=== PATIENT | female | born 1995 | race Caucasian/White ===

== ENCOUNTER → 2019-02-03 16:02 | Outpatient (CLI) | payer SELFPAY ==
[2019-02-03 17:21] LABS: Absolute Lymphocyte Count 1.59 X10^3/uL (0.83-4.51); Basophil# 0.03 X10^3/uL; Basophil% 0.3 % (0-1); Eosinophil# 0.07 X10^3/uL; Eosinophils% 0.7 % (0-5); Hematocrit 38.2 % (37-47); Lymphocyte # 1.59 X10^3/ul (4.0); Lymphocyte % 16.3 % (19-41); Mean Corpuscular Hgb 31.3 pg (27.0-32.0); Mean Corpuscular Volume 91.8 fL (81-99); Mean Platelet Vol. 11.1 fl (6.2-12.0); Monocyte# 0.95 X10^3/uL; Monocyte% 9.8 % (0-10); NRBC Flagged by Analyzer 0 % (0-5); Neutrophil # 7.04 X10^3/uL (2.7-7.7); Neutrophil % 72.3 % (47-70); Platelet Count 212 K/mm3 (150-450); RBC Distribution Width CV 11.9 % (11.6-14.6); RBC Distribution Width SD 39.8 fl (35.1-43.9); Red Blood Count 4.16 M/mm3 (4.2-5.4); White Blood Count 9.7 K/mm3 (4.4-11.0)
[2019-02-03 19:52] LABS: Chlamydia Trachomatis by PCR Negative (Negative); Neisserai gonorrhoeae by PCR Negative (Negative); Probe Check PASS; Sample Adequacy Control PASS; Specimen Processing Control PASS
[2019-02-04 16:26] LABS: HIV - WCH Non-Reactive (Nonreactive); Hepatitis B Surface Antigen Non-Reactive (Nonreactive); Rubella IgG 210.2 IU/mL
[2019-02-05 05:10] LABS: Rapid Plasmin Reagin (RPR) NONREACTIVE (NONREACTIVE)
== END ==
PROVIDERS: Referring Provider Nurse Practitioner Women's Health; Visit Provider Nurse Practitioner Women's Health
DX: Z34.90 Encounter for supervision of normal pregnancy, unspecified, unspecified trimester (principal)
CPT/HCPCS: 36415; 85025; 86592; 86703; 86762; 86850; 86900; 86901; 87086; 87088; 87340; 87491; 87591

== ENCOUNTER → 2019-03-10 13:04 | Outpatient (CLI) | payer SELFPAY ==
[2019-03-10 08:39] VITALS: BMI 28.5
[2019-03-11 16:16] LABS: HPV Reflexed? NOT INDICATED
== END ==
PROVIDERS: Referring Provider Obstetrics & Gynecology; Visit Provider Obstetrics & Gynecology
DX: Z12.4 Encounter for screening for malignant neoplasm of cervix (principal)
CPT/HCPCS: 88175; G0145

== ENCOUNTER → 2019-06-02 09:14 | Outpatient (CLI) | payer SELFPAY ==
[2019-06-02 08:49] VITALS: BMI 30.7
[2019-06-02 10:32] LABS: Absolute Lymphocyte Count 1.33 X10^3/uL (0.83-4.51); Absolute Neutrophil Count 6.7 X10^3/uL (2.0-7.7); Basophil# 0.03 X10^3/uL; Basophil% 0.3 % (0-1); Eosinophil# 0.04 X10^3/uL; Eosinophils% 0.4 % (0-5); Hematocrit 34.6 % (37-47); Hemoglobin 11.8 g/dL (12.0-15.0); Lymphocyte # 1.33 X10^3/ul (4.0); Lymphocyte % 14.8 % (19-41); Mean Corp Hgb Conc 34.1 g/dL (32-36); Mean Corpuscular Hgb 31.5 pg (27.0-32.0); Mean Corpuscular Volume 92.3 fL (81-99); Mean Platelet Vol. 10.8 fl (6.2-12.0); Monocyte# 0.73 X10^3/uL; Monocyte% 8.1 % (0-10); NRBC Flagged by Analyzer 0 % (0-5); Neutrophil # 6.66 X10^3/uL (2.7-7.7); Neutrophil % 74.4 % (47-70); Platelet Count 144 K/mm3 (150-450); RBC Distribution Width CV 12.4 % (11.6-14.6); RBC Distribution Width SD 41.1 fl (35.1-43.9); Red Blood Count 3.75 M/mm3 (4.2-5.4)
[2019-06-02 10:57] LABS: Glucose Challenge Gest 1H 50g 131 mg/dL (70-140)
== END ==
PROVIDERS: Referring Provider Obstetrics & Gynecology; Visit Provider Obstetrics & Gynecology
DX: Z34.01 Encounter for supervision of normal first pregnancy, first trimester (principal)
CPT/HCPCS: 36415; 82950; 85025

== ENCOUNTER → 2019-07-29 15:28 | Outpatient (CLI) | payer SELFPAY ==
[2019-07-29 09:08] VITALS: BMI 31.0
== END ==
PROVIDERS: Referring Provider Nurse Practitioner Women's Health; Visit Provider Nurse Practitioner Women's Health
DX: Z34.00 Encounter for supervision of normal first pregnancy, unspecified trimester (principal)
CPT/HCPCS: 87081

== ENCOUNTER → 2019-07-30 11:01 | Outpatient (CLI) | payer SELFPAY ==
[2019-07-29 09:08] VITALS: BMI 31.0
--- NOTE | 2019-07-30 11:03 | US_ITS ---
STUDY: SECOND AND THIRD TRIMESTER OBSTETRICAL ULTRASOUND REASON FOR EXAM: Female, 23 years old GROWTH SMALL FOR DATES LMP: November 18, 2018. TECHNIQUE: Transabdominal TECHNICAL QUALITY: Adequate. PRIOR ULTRASOUND: None. FINDINGS: There is a single intrauterine fetus. The fetus is in a cephalic presentation. There is demonstrated cardiac activity with a heart rate of 142 bpm. There is decreased amniotic fluid volume consistent with oligohydramnios. The largest amniotic fluid pocket measures 3.9 cm. The amniotic fluid index (ELMIRA) is 7.6 cm. This is at below the 5th percentile. The placenta is fundal and posterior in location. There are Grade 2 placental changes. The adnexal regions are not visualized. BIOMETRY: BPD: 8.6 cm: 34 weeks, 6 days HC: 32.7 cm: 37 weeks, 1 days AC: 32.6 cm: 36 weeks, 4 days FL: 7.1 cm: 36 weeks, 1 days CI: 77% FL/BPD: 82% FL/HC: FL/AC: 22% HC/AC: 1.0 age by current US: 36 weeks, 2 days. JOHN by current US: August 25, 2019. Estimated weight: 2894 grams, +/- 423 grams, 52 %. Age by LMP: 36 weeks, 2 days. JOHN by LMP: August 25, 2019. US/OB Limited With Biometrics IMPRESSION: Single live intrauterine gestation with a mean gestational age of 36 weeks and 2 days. Oligohydramnios. The amniotic fluid is below the 5th percentile. Electronically Signed: Sumanth Zhang, at 15:38 EDT , Service support ,
== END ==
PROVIDERS: Referring Provider Nurse Practitioner Women's Health; Visit Provider Nurse Practitioner Women's Health
DX: Z34.00 Encounter for supervision of normal first pregnancy, unspecified trimester (principal)
CPT/HCPCS: 76816

== ENCOUNTER 2019-08-01 08:55 | Inpatient (IN) | payer SELFPAY ==
[2019-08-01] VITALS (38 sets, daily range): BP systolic 107–146; BP diastolic 51–81; PULSE 78–123; TEMP 36.2–36.8; O2SAT 91–100; BMI 31.0; BMI 31.5
[2019-08-01 10:24] LABS: Absolute Lymphocyte Count 1.27 X10^3/uL (0.83-4.51); Absolute Neutrophil Count 6.5 X10^3/uL (2.0-7.7); Basophil# 0.07 X10^3/uL; Basophil% 0.8 % (0-1); Eosinophil# 0.07 X10^3/uL; Eosinophils% 0.8 % (0-5); Hematocrit 37.3 % (37-47); Hemoglobin 12.5 g/dL (12.0-15.0); Lymphocyte # 1.27 X10^3/ul (4.0); Lymphocyte % 13.8 % (19-41); Mean Corp Hgb Conc 33.5 g/dL (32-36); Mean Corpuscular Hgb 31.6 pg (27.0-32.0); Mean Corpuscular Volume 94.2 fL (81-99); Mean Platelet Vol. 10.9 fl (6.2-12.0); Monocyte# 0.95 X10^3/uL; Monocyte% 10.3 % (0-10); NRBC Flagged by Analyzer 0 % (0-5); Neutrophil % 70.4 % (47-70); Platelet Count 181 K/mm3 (150-450); RBC Distribution Width CV 12.1 % (11.6-14.6); RBC Distribution Width SD 41.9 fl (35.1-43.9); Red Blood Count 3.96 M/mm3 (4.2-5.4); White Blood Count 9.2 K/mm3 (4.4-11.0)
[2019-08-01] MEDS: Lactated Ringers 1,000 ML 50 ML IV (10:25)
[2019-08-01] MEDS: 0.9% Normal Saline Single 100 ML IV.SOLN. IY (10:25)
[2019-08-01 10:31] LABS: Probe Check PASS; SARS-COV-2 DNA by PCR Negative (Negative); Specimen Processing Control PASS
[2019-08-01 10:31] LABS: International Normalized Ratio 0.9; Prothrombin Time (Protime)PT. 12.1 SECONDS (11.7-14.9)
[2019-08-01 10:32] LABS: Partial Thromboplast Time 24.5 Seconds (24.1-36.2)
[2019-08-01 10:37] LABS: AST(SGOT) 39 U/L (15-37); Alanine Aminotransfer ALT/SGPT 106 U/L (13-56); Creatinine, Serum 0.48 mg/dL (0.55-1.02); EST Glomerular Filtration Rate 168 mL/min (>60); Est Glom Filt Rate - Afr Amer 204 mL/min (>60); Estimated Creatinine Clearance 152.08 ml/min
[2019-08-01 10:50] LABS: Protein, Urine (Random) < 6.0 mg/dL (<11.9)
--- NOTE | 2019-08-01 11:03 | HP.PCM_ITS ---
- Problem List (1) Elevated blood pressure complicating in third trimester, antepartum Status: Acute (2) Oligohydramnios Status: Acute Comment: iol 36w4d (3) Status: Acute Qualifiers: Comment: Declines carrier. NIPT-low risk male. declines afp screen. Anatomy normal (4) Supervision of normal first Status: Acute Qualifiers: Comment: PRR JOHN 08/25/19 boy- mateusz Spouse Ramone History and Physical Date of Admission: 08/01/19 Intake Vital Signs 08/01/19 BMI 31.0 08/01/19 Height 5 ft 3 in 08/01/19 Weight: 179 lb 6 oz 08/01/19 BMI 31.7 08/01/19 BP 150/94 H 07/30/19 BMI 31.0 Intake Visit Reasons: fluid check Expediter Required: No Is patient in pain?: No Allergies No Known Allergies Allergy (Verified 08/01/19 08:11) Medications prenat.vits,taylor,rau-kgbg-yzsvk 1 tab PO DAILY 02/03/19 [History Confirmed 08/01/19] Last Menstral Period: 11/18/18 Zika: Zika virus screening: Negative : No PFSH PFSH Surgical History S/P ACL repair (Acute) Family History Mother Heart disease Father Heart disease Social History (Updated 08/01/19 @ 08:[address] Selin Ferrari MD) Smoking Status: Never smoker alcohol intake: never substance use type: does not use well-balanced diet: daily or most days caffeine: No what type of physical activity do you participate in: none seatbelt use: always do you feel safe at home: Yes additional social history: - Ramone Pregancy History 1 Elective abortions Hx Para 0 Spontaneous abortions Hx # Term Pregnancies Ectopic pregnancies Hx # Pregnancies Multiple births # of living children HPI fluid check : Details: ANAYELI ACHARYA is a 23 year old @ 36w4d with oligohydramnios and elevated bps- suspect severe preeclampsia. she denies any vb lof admits good fm no regular ctx. OB Visit JOHN Calculator Estimated Delivery Date Method Current WG Current Estimate 08/25/19 LMP (Certain) 36w 4d Expected Delivery Route/Plan Labor support person Ramone Pain management preference option epidural cut cord/dad catch no yes PP control plan condom discuss possible routes of delivery and associated risks [] special requests [] Specific Issue/Plans flu vaccine declines tdap vaccine declines rhogam NA LARC form signed declines movement and labor precautions reviewed. Problem list reviewed and updated with the most current details and appropriate orders placed. Continue routine care and follow up unless otherwise noted in visit notes/problem list details. Initial Weight: 156 lb Date EGA Weight BP Urine Prot Glucose FHR FuHt Pres Dilation Effaced St Visit Note 03/10/19 16w 0d 161 lb 8 oz (+5 lb 8 oz) 133/78 Negative Negative 160 SM- no vb cramping 04/07/19 20w 0d 166 lb 2 oz (+10 lb 2 oz) 126/78 Negative Negative 150 MH-Doing well. No VB, LOF. Good FM. Reviewed nl anatomy US 05/05/19 24w 0d 169 lb 2 oz (+13 lb 2 oz) 128/76 Negative Negative 260 24 SM- no vb lof good fm no regular ctx 06/02/19 28w 0d 173 lb 2 oz (+17 lb 2 oz) 132/80 Negative Negative 150 28 SM- no vb lof good fm n oregular ctx cbc gct tdap. discussed fu in 4 weeks due to COVID19. 06/30/19 32w 0d 175 lb 6 oz (+19 lb 6 oz) 130/86 Negative 500 g/dL 140 31 Cephalic SM- no vb lof good fm no regular ctx. fu 4 weeks due to covid pandemic. 07/29/19 36w 1d 177 lb 2 oz (+21 lb 2 oz) 122/80 Negative Negative 151 33 Cephalic 0 -3 MH-NO VB, LOF. Good FM. GBS. Growth U S 08/01/19 36w 4d 179 lb 6 oz (+23 lb 6 oz) 150/94 Negative Negative 150 33 Cephalic 1.5 60 -1 SM- no vb lof good fm no regular ctx elevated bp and repeat parminder at bedside 4 cm recommend IOL, possible severe preeclampsia. ACOG First Trimester First Trimester: Desire for , Alcohol, Tobacco Cessation, Illicit/Recreational Drug/Substance Use, Intimate Partner Violence, Barriers to care, Unstable Housing, Communication Barriers, Environmental/Work Hazards, Anticipated Course of Care, Toxoplasmosis Precations, Use of Any medications, Sexual activity, Exercise, Dental Care, Sauna/Hot tub use, Seat Belt use, Childbirth classes/Hospital facilities, , Travel, Indications for US and Screening for Aneuploidy Second Trimester Second Trimester: Signs and Symptoms of Labor, Selecting a care provider, Reproductive Life Planning, Care Planning and Intimate Partner Violence; discussed Tobacco Cessation or discussed Depression/Anxiety Third Trimester Third Trimester: Pain Management Plans, Labor support person(s), Immediate Larc, Movement Monitoring and Feeding Yes ; discussed Trial of Labor after Counseling or discussed Circumcision preference Diagnostics Diagnostics Diagnostics Blood Type A POSITIVE 02/03/19 Antibody Screen NEGATIVE 02/03/19 Glucose 1 Hr 50 gm 131 mg/dL (70-140) 06/02/19 HIV 1&2 Antibody Non-Reactive (Nonreactive) 02/03/19 Rubella IgG Antibody 210.2 IU/mL 02/03/19 Hgb 11.8 g/dL (12.0-15.0) L 06/02/19 Hct 34.6 % (37-47) L 06/02/19 RPR NONREACTIVE (NONREACTIVE) 02/03/19 Details: HIV: Urine Culture: Sequential Screen: NIPT Screen: ROS Const Reports system reviewed and no additional complaints, except as docu Card Reports system reviewed and no additional complaints, except as docu Resp Reports system reviewed and no additional complaints, except as docu GI Reports system reviewed and no additional complaints, except as docu, Reports nausea Reports system reviewed and no additional complaints, except as docu Musc Reports system reviewed and no additional complaints, except as docu Exam Const General: cooperative, healthy appearing, comfortable, anxious HENPR Head: normal to inspection Nose: external nose normal Face and sinus: normal facial exam Neck Neck: normal visual inspection, full ROM, no lymphadenopathy Thyroid: thyroid normal Chest Chest palpation & inspection: normal inspection of the chest Resp Effort & Inspection: normal respiratory effort GI Inspection: normal to inspection Palpation: soft, other (gravid uterus) Other: infant vertex and appropriate size for gestational age Other: Cervical Exam: Extrem General: pedal edema Results POC Urinalysis 2 Dip (Clinic) Office Urine Glucose Negative Last Edit by Celena Faye on 08/01/19 08:19 Office Urine Protein Negative Last Edit by Celena aFye on 08/01/19 08:19 Assessment & Plan Problems 1. 36 weeks gestation of Z3A.36 Declines carrier. NIPT-low risk male. declines afp screen. Anatomy normal 2. Encounter for supervision of normal first in first trimester Z34.01 PRR JOHN 08/25/19 boy- mateusz Spouse Ramone 3. Oligohydramnios O41.00X0 iol 36w4d 4. Elevated blood pressure complicating in third trimester, antepartum O16.3 Plan Patient presents IOL, plan management for , pitocin/AROM after fb. Pain management: plans epidural. GBS unknown- await result. Management of any complications: oligo, elevated blood pressures, check preeclampsia panel. I have reviewed the [facility] and made any clinically relevant updates. Orders Orders: POC Urinalysis 2 Dip (Clinic) Today Coding Level of Care Code OB Routine Diagnoses 36 weeks gestation of Z3A.36 ??Weeks of gestation: 36 weeks Encounter for supervision of normal first in first trimester Z34.01 ??Trimester: first trimester Oligohydramnios O41.00X0 Elevated blood pressure complicating in third trimester, antepartum O16.3
[2019-08-01] MEDS: Oxytocin 30 units/NS 500 ml 30 UNITS/500 ML IV.SOLN IV (11:10)
--- NOTE | 2019-08-01 19:32 | NURSING ---
Report received from Christophe Ellis RN. Pitocin running on pump at 16 mL/hr at start of this RN's shift.
[2019-08-01] MEDS: Lactated Ringers 500 ML 999 ML IV (21:33)
[2019-08-01] MEDS: Lactated Ringers 1,000 ML 200 ML IV (22:27)
[2019-08-01] MEDS: fentaNYL-bupivacaine (epidural) 100 ML BAG EPIDURAL (22:27)
[2019-08-02] VITALS (28 sets, daily range): BP systolic 99–122; BP diastolic 52–63; PULSE 80–123; RESP 16; TEMP 36.4–37; O2SAT 85–99
--- NOTE | 2019-08-02 02:20 | PN_ITS ---
Progress Note FHT: 130 moderate variability reactive no decelerations category I tracing [place]: Every 2-4 contractions 6 cm recommend Pitocin washout and then restart at half the Pitocin. iol oligo reassuring status, s/p epi STROKE Vital Signs/Narrative: Vital Signs Temp Pulse BP Pulse Ox 08/02/19 01:14 98.6 F 96 99/52 L 97 08/02/19 00:20 81 109/55 L 08/02/19 00:19 97.5 F L 98 08/01/19 23:09 90 110/51 L 99 08/01/19 23:07 97.3 F L 08/01/19 22:40 100 124/75 H 08/01/19 22:38 97.2 F L 08/01/19 22:34 105 H 116/70 08/01/19 22:29 100 107/63 08/01/19 22:25 123 H 111/59 L 08/01/19 22:23 97 99
[2019-08-02] MEDS: fentaNYL-bupivacaine (epidural) 100 ML BAG EPIDURAL (02:35)
[2019-08-02] MEDS: Lactated Ringers 1,000 ML 200 ML IV (03:42)
--- NOTE | 2019-08-02 07:49 | OP.PCM_ITS ---
Problem List (1) Elevated blood pressure complicating in third trimester, antepartum Status: Acute (2) Oligohydramnios Status: Acute Comment: iol 36w4d (3) Status: Acute Qualifiers: Comment: Declines carrier. NIPT-low risk male. declines afp screen. Anatomy normal (4) Supervision of normal first Status: Acute Qualifiers: Comment: PRR JOHN 08/25/19 boy- mateusz Spouse Ramone Vaginal Delivery Maternal Presentation: Medically Indicated Induction iol 36w5d presents IOL oligo Method of Induction: Pitocin, Arellano Bulb Amniotic Membrane Rupture Type: Artificial Amniotic Fluid Description: Clear Date of Procedure: 08/02/19 Pre-Operative Diagnosis: iol oligo Post-Operative Diagnosis: same Surgery/ Procedure Performed: Spontaneous Vaginal Delivery Type of Anesthesia: Epidural Description of Procedure: Patient began pushing and delivered the head in the ROSETTA presentation. The head was delivered atraumatically. The anterior and posterior shoulders delivered without complication followed by the rest of the and the was placed on the maternal abdomen. Delayed cord clamping was employed for approximately 60 seconds. Cord was clamped and cut and gentle traction was applied to the cord and the placenta delivered spontaneously immediately following it was noted to be intact with three-vessel cord. The perineum and vagina were inspected and noted to have a small first-degree perineal laceration that was repaired in the usual fashion with 3-0 Vicryl Rapide. EBL was 300 cc. Patient and infant tolerated delivery well. Placental Delivery Description: Spontaneous Placenta Disposition: [facility] Cord Vessel Description: 3 Vessels Cord Entanglement: None Estimated Blood Loss: 300 A gender: Male Episiotomy Description: None Laceration: Perineal Extension/lac, 1st degree Medications given after delivery: IV Pitocin Complications: None Multi Select Codes - Urinary/Genital Urinary/Genital CPT Codes: 02185 Vaginal Delivery [facility]
[2019-08-02] MEDS: Oxytocin 30 units/NS 500 ml 30 UNITS/500 ML IV.SOLN 334 UNITS IV (08:21)
[2019-08-02] MEDS: Ondansetron 4 MG/2 ML Vial IV (09:05)
[2019-08-02] MEDS: 0.9% Saline Lock 10 ML Syringe IV (11:19)
[2019-08-02] MEDS: Naproxen 250 MG Tablet 500 MG PO (19:50)
[2019-08-03] VITALS: BP 116/68; PULSE 74; RESP 16; TEMP 36.4
[2019-08-03 04:00] VITALS: BP 117/63; PULSE 78; RESP 16; TEMP 36.4
--- NOTE | 2019-08-03 07:10 | PCM.PN.OB ---
Subjective: doing well no complaints pain controlled no CP SOB N V ambulating well tolerating po lochia moderate, going well - Physical Exam Vitals/I&O's: Vital Signs Temp Pulse Resp BP Pulse Ox 97.5 F L 74 16 116/68 98 08/03/19 00:00 08/03/19 00:00 08/03/19 00:00 08/03/19 00:00 08/02/19 08:33 Weight: 177 lb 14.609 oz Body Mass Index (BMI) 31.5 Intake and Output for Last 24 Hours 08/01/19 08/02/19 08/03/19 23:59 23:59 23:59 Intake Total 1073.37 / 1073.37 2845.83 / 2845.83 Output Total 300 / 300 2400 / 2400 Balance 773.37 / 773.37 445.83 / 445.83 General: Alert, Oriented x3 Current Medications Acetaminophen (Tylenol) 1,000 mg PO Q8H PRN PRN PRN Reason: Pain Score 1-3/10 Bisacodyl (Dulcolax) 10 mg RECTAL UD PRN PRN Reason: If no BM Dibucaine (Dibucaine) 1 applic TOPICAL TID PRN PRN; Protocol PRN Reason: Discomfort Hydrocortisone (Hytone) 1 applic TOPICAL TID PRN PRN; Protocol PRN Reason: Discomfort Methylergonovine Maleate (Methergine) 0.2 mg IM X1 PRN PRN Reason: Excess bleeding/uterine atony Naproxen (Naprosyn) 500 mg PO Q8H PRN PRN PRN Reason: Pain Score 1-3/10 Last Admin: 08/02/19 19:50 Dose: 500 mg Documented by: Ondansetron HCl (Zofran) 4 mg IV Q4H PRN PRN PRN Reason: Nausea Last Admin: 08/02/19 09:05 Dose: 4 mg Documented by: Oxycodone HCl (Oxyir) 5 - 10 mg PO Q4H PRN PRN PRN Reason: Pain Score 4-10/10 Senna/Docusate Sodium (Senokot-S, Nkechi-Colace) 1 - 2 tablet PO DAILY PRN PRN PRN Reason: Constipation Simethicone (Mylicon) 80 mg PO PCHS PRN PRN Reason: Indigestion/Stomach pain Sodium Chloride () 5 - 15 ml IV UD PRN PRN Reason: SALINE FLUSH Last Admin: 08/02/19 11:19 Dose: 10 ml Documented by: Medical Necessity - Tobacco Use Smoking Status: Never smoker Assessment/Plan All Active Problems (Last Reviewed 08/01/19 @ 08:10 by Celena Faye) Elevated blood pressure complicating in third trimester, antepartum (Acute) Oligohydramnios (Acute) (Acute) Supervision of normal first (Acute) s/p PPD # 1 1. routine post delivery care 2. breast feeding- support given 3. rh positive 4. rubella immune
--- NOTE | 2019-08-03 07:11 | DCINST_ITS ---
Discharge Diet: No Restrictions Discharge Activity: Return to Normal Activity, May not drive while taking narcotic pain medications., May Shower May resume sexual activity in: 4-6 weeks Call your doctor if your incision/area has: Continuous Slow Oozing, Sudden Increased Bleeding, Increased Pain/ Swelling, Increased Redness, Foul Smelling Discharge Additional Instructions: If you experience any of the following, contact your healthcare provider. * Bleeding that soaks a pad every hour for 2 hours * Fever 100.4 or higher * Unrelieved incision or abdominal pain * Swelling, redness, discharge or bleeding from your incision or episiotomy site * Your incision begins to separate * Problems urinating (including inability to urinate or burning while urinating). * Visual changes * Severe headache * Flu-like symptoms * Pain or redness in one of both of your breasts * Pain, warmth, tenderness or swelling in your legs, especially the calf area * Frequent nausea and vomiting * Symptoms of depression or anxiety If you experience any of the following, call 911 or go to the nearest Emergency Room. * Chest pain * Problems breathing * Seizure activity * Partial or complete paralysis of a body part, slurred speech, weakness or drooping of the face, or a sudden inability to walk or hold your balance Allergies/Adverse Reactions: Allergies No Known Allergies Allergy (Verified 08/01/19 08:11) Medications to take at Discharge prenat.vits,taylor,bsk-onmx-hluom 1 tab PO DAILY 02/03/19 Please Follow Up With: Selin Ferrari MD - [phone] When: Call to make an appointment with your doctor in 6 weeks. If you had elevated Blood pressure or 4th degree laceration you will need to be seen in 2 weeks. Primary Care Physician: Care Physician,No Primary [Primary Care Provider] - Test Results: Test results from this visit will be discussed in further detail at your follow- up appointment, if applicable.
--- NOTE | 2019-08-03 07:11 | PCM.DCVAG ---
Discharge Diet: No Restrictions Discharge Activity: Return to Normal Activity, May not drive while taking narcotic pain medications., May Shower May resume sexual activity in: 4-6 weeks Call your doctor if your incision/area has: Continuous Slow Oozing, Sudden Increased Bleeding, Increased Pain/ Swelling, Increased Redness, Foul Smelling Discharge Additional Instructions: If you experience any of the following, contact your healthcare provider. Bleeding that soaks a pad every hour for 2 hours Fever 100.4 or higher Unrelieved incision or abdominal pain Swelling, redness, discharge or bleeding from your incision or episiotomy site Your incision begins to separate Problems urinating (including inability to urinate or burning while urinating). Visual changes Severe headache Flu-like symptoms Pain or redness in one of both of your breasts Pain, warmth, tenderness or swelling in your legs, especially the calf area Frequent nausea and vomiting Symptoms of depression or anxiety If you experience any of the following, call 911 or go to the nearest Emergency Room. Chest pain Problems breathing Seizure activity Partial or complete paralysis of a body part, slurred speech, weakness or drooping of the face, or a sudden inability to walk or hold your balance Allergies/Adverse Reactions: Allergies No Known Allergies Allergy (Verified 08/01/19 08:11) Medications to take at Discharge prenat.vits,taylor,omc-cxtk-zxmiw 1 tab PO DAILY 02/03/19 Please Follow Up With: Selin Ferrari MD - [phone] When: Call to make an appointment with your doctor in 6 weeks. If you had elevated Blood pressure or 4th degree laceration you will need to be seen in 2 weeks. Primary Care Physician: Care Physician,No Primary [Primary Care Provider] - Test Results: Test results from this visit will be discussed in further detail at your follow-up appointment, if applicable.
[2019-08-03 09:30] VITALS: BP 115/54; PULSE 77; RESP 16; TEMP 36.6
[2019-08-03 14:10] VITALS: BP 116/64; PULSE 77; RESP 16; TEMP 36.8
[2019-08-03 21:00] VITALS: BP 120/59; PULSE 74; RESP 18; TEMP 36.7
[2019-08-04 02:00] VITALS: BP 108/52; PULSE 66; RESP 18; TEMP 36.8
--- NOTE | 2019-08-04 08:10 | PCM.PN.OB ---
Subjective: Doing well, no complaints.Pain controlled. Denies CP, SOB, N,V. Ambulating well, tolerating po. Lochia moderate, going well. - Physical Exam Vitals/I&O's: Vital Signs Temp Pulse Resp BP Pulse Ox 98.2 F 66 18 108/52 L 98 08/04/19 02:00 08/04/19 02:00 08/04/19 02:00 08/04/19 02:00 08/02/19 08:33 Oxygen Delivery Method Room Air Weight: 177 lb 14.609 oz Body Mass Index (BMI) 31.5 Intake and Output for Last 24 Hours 08/02/19 08/03/19 08/04/19 23:59 23:59 23:59 Intake Total 2845.83 / 2845.83 Output Total 2400 / 2400 Balance 445.83 / 445.83 General: Alert, Oriented x3 Abdomen: Soft, Non Tender, - - FF below U Current Medications Acetaminophen (Tylenol) 1,000 mg PO Q8H PRN PRN PRN Reason: Pain Score 1-3/10 Bisacodyl (Dulcolax) 10 mg RECTAL UD PRN PRN Reason: If no BM Dibucaine (Dibucaine) 1 applic TOPICAL TID PRN PRN; Protocol PRN Reason: Discomfort Hydrocortisone (Hytone) 1 applic TOPICAL TID PRN PRN; Protocol PRN Reason: Discomfort Methylergonovine Maleate (Methergine) 0.2 mg IM X1 PRN PRN Reason: Excess bleeding/uterine atony Naproxen (Naprosyn) 500 mg PO Q8H PRN PRN PRN Reason: Pain Score 1-3/10 Last Admin: 08/02/19 19:50 Dose: 500 mg Documented by: Ondansetron HCl (Zofran) 4 mg IV Q4H PRN PRN PRN Reason: Nausea Last Admin: 08/02/19 09:05 Dose: 4 mg Documented by: Oxycodone HCl (Oxyir) 5 - 10 mg PO Q4H PRN PRN PRN Reason: Pain Score 4-10/10 Senna/Docusate Sodium (Senokot-S, Nkechi-Colace) 1 - 2 tablet PO DAILY PRN PRN PRN Reason: Constipation Simethicone (Mylicon) 80 mg PO PCHS PRN PRN Reason: Indigestion/Stomach pain Sodium Chloride () 5 - 15 ml IV UD PRN PRN Reason: SALINE FLUSH Last Admin: 08/02/19 11:19 Dose: 10 ml Documented by: Medical Necessity - Tobacco Use Smoking Status: Never smoker Assessment/Plan All Active Problems (Last Reviewed 08/01/19 @ 08:10 by Celena Faye) Elevated blood pressure complicating in third trimester, antepartum (Acute) Oligohydramnios (Acute) (Acute) Supervision of normal first (Acute) s/p PPD # 2 1. routine post delivery care 2. breast feeding- support given 3. rh positive 4. rubella immune 5. home today
[2019-08-04 08:30] VITALS: BP 114/65; PULSE 72; RESP 16; TEMP 36.6
[2019-08-04 13:03] VITALS: BP 112/69; PULSE 75; RESP 16; TEMP 36.7; O2SAT 98
== END 2019-08-04 14:10 | disposition home or self-care (01) | DRG 807 ==
PROVIDERS: Admitting Provider Obstetrics & Gynecology; Visit Provider Obstetrics & Gynecology
DX: O41.03X0 Oligohydramnios, third trimester, not applicable or unspecified (principal); Z37.0 Single live birth; O75.89 Other specified complications of labor and delivery; Z3A.36 36 weeks gestation of pregnancy; R03.0 Elevated blood-pressure reading, without diagnosis of hypertension; O70.0 First degree perineal laceration during delivery
CPT/HCPCS: 59025; 59050; 82565; 82570; 84156; 84450; 84460; 84550; 85025; 85610; 85730; 86850; 86900; 86901; 87635; 99218; G2023; J7120; A4216; G0378; J2405; U0004

== ENCOUNTER → 2020-04-12 17:35 | Outpatient (CLI) | payer SELFPAY ==
[2020-04-12 14:26] VITALS: BMI 29.0
[2020-04-12 18:55] LABS: Amphetamine Urine VISTA NEGATIVE (<1000 ng/mL); Barbiturate Urine VISTA NEGATIVE (< 200 ng/mL); Benzodiazepine Urine VISTA NEGATIVE (< 200 ng/mL); Cocaine Urine VISTA NEGATIVE (< 300 ng/mL); Ecstacy Urine VISTA NEGATIVE (< 500 ng/mL); Methadone Urine VISTA NEGATIVE (< 300 ng/mL); PCP Urine VISTA NEGATIVE (< 25 ng/mL); THC Urine VISTA NEGATIVE (< 50 ng/mL); Vista UDS pH Range 5
[2020-04-15 03:06] LABS: Chlamydia By Nucleic Acid AMP Negative (Negative)
[2020-04-15 09:37] LABS: Gonococcus By Nucleic Acid AMP Negative (Negative)
== END ==
PROVIDERS: Visit Provider Obstetrics & Gynecology
DX: Z34.80 Encounter for supervision of other normal pregnancy, unspecified trimester (principal)
CPT/HCPCS: 80307; 87086; 87088; 87491; 87591

== ENCOUNTER → 2020-05-04 10:50 | Outpatient (CLI) | payer SELFPAY ==
[2020-04-12 14:26] VITALS: BMI 29.0
[2020-05-04 11:55] LABS: NATERA MAILED SPECIMEN
[2020-05-04 12:00] LABS: Absolute Lymphocyte Count 1.46 X10^3/uL (0.83-4.51); Absolute Neutrophil Count 4.9 X10^3/uL (2.0-7.7); Basophil# 0.02 X10^3/uL; Basophil% 0.3 % (0-1); Eosinophil# 0.03 X10^3/uL; Eosinophils% 0.4 % (0-5); Hematocrit 38.6 % (37-47); Lymphocyte # 1.46 X10^3/ul (4.0); Lymphocyte % 20.9 % (19-41); Mean Corp Hgb Conc 33.7 g/dL (32-36); Mean Corpuscular Hgb 31.1 pg (27.0-32.0); Mean Corpuscular Volume 92.3 fL (81-99); Monocyte# 0.59 X10^3/uL; Monocyte% 8.5 % (0-10); NRBC Flagged by Analyzer 0 % (0-5); Neutrophil # 4.85 X10^3/uL (2.7-7.7); Neutrophil % 69.5 % (47-70); Platelet Count 216 K/mm3 (150-450); RBC Distribution Width CV 12.4 % (11.6-14.6); RBC Distribution Width SD 42.3 fl (35.1-43.9); Red Blood Count 4.18 M/mm3 (4.2-5.4)
[2020-05-04 13:14] LABS: HIV - WCH Non-Reactive (Nonreactive); Hepatitis B Surface Antigen Non-Reactive (Nonreactive); Hepatitis C Antibody Non-Reactive (Nonreactive); Rubella IgG Reactive (Nonreactive)
== END ==
PROVIDERS: Referring Provider Obstetrics & Gynecology; Visit Provider Obstetrics & Gynecology
DX: Z34.80 Encounter for supervision of other normal pregnancy, unspecified trimester (principal)
CPT/HCPCS: 36415; 85025; 86703; 86762; 86803; 86850; 86900; 86901; 87340

== ENCOUNTER → 2020-06-29 08:44 | Outpatient (CLI) | payer SELFPAY ==
[2020-05-10 08:30] VITALS: BMI 29.2
[2020-06-09 08:36] VITALS: BMI 29.7
--- NOTE | 2020-06-29 08:48 | US_ITS ---
STUDY: SECOND AND THIRD TRIMESTER OBSTETRICAL ULTRASOUND REASON FOR EXAM: Female, 24 years old anatomy LMP: 02/14/2020. TECHNIQUE: Transabdominal and Transvaginal TECHNICAL QUALITY: Adequate. PRIOR ULTRASOUND: None. FINDINGS: There is a single intrauterine fetus. The fetus is in a breech presentation. There is demonstrated cardiac activity with a heart rate of 151 bpm. There is a normal amniotic fluid volume. The largest amniotic fluid pocket measures 5.2 cm x 4.3 cm. The amniotic fluid index (ELMIRA) is within normal limits. The placenta is anterior in location and is not low lying. There are Grade 0 placental changes. The cervix measures 3.5 cm in length. The adnexal regions are not visualized. BIOMETRY: BPD: 4.46 cm: 19 weeks, 3 days HC: 17.1 cm: 19 weeks, 4 days AC: 15.16 cm: 20 weeks, 2 days FL: 2.95 cm: 19 weeks, 0 days CI: 76% FL/BPD: 66.1 FL/HC: FL/AC: 19.4 HC/AC: 1.13 age by current US: 19 weeks, 3 days. JOHN by current US: 11/20/2020. Estimated weight: 312 grams, +/- 47 grams, 64.5 %. Age by LMP: 19 weeks, 3 days. JOHN by LMP: 11/20/2020. ANATOMY: Gender: Male Cranium: Normal lateral ventricles. Normal choroid plexus. Normal cerebellum. Normal cisterna magna. Normal face, nose and lips. Chest: Normal 4-chamber heart. Abdomen/Pelvis: Normal diaphragm. Normal stomach. Normal abdominal wall. Normal cord insertion. Normal 3 vessel cord. Normal kidneys. Normal bladder. Spine: Normal cervical spine. Normal thoracic spine. Normal lumbar spine. Normal sacrum. Extremities: Normal bilateral upper extremities. Normal bilateral lower extremities. IMPRESSION: Single live uterine gestation with a mean gestational age of 19 weeks and 3 days. Electronically Signed: Sumanth Zhang MD at 13:34 EDT , Service support , STUDY: FIRST TRIMESTER OBSTETRICAL ULTRASOUND REASON FOR EXAM: Female, 24 years old anatomy LMP: 02/14/2020. TECHNIQUE: Transvaginal TECHNICAL QUALITY: Adequate. PRIOR ULTRASOUND: None. FINDINGS: Transvaginal examination was utilized for measurement of the cervical length. The cervix measures 3.5 cm. US/OB Anatomy Scan IMPRESSION: The cervix measures 3.5 cm in length. Electronically Signed: Sumanth Zhang MD at 13:35 EDT , Service support ,
== END ==
PROVIDERS: Referring Provider Obstetrics & Gynecology; Visit Provider Obstetrics & Gynecology
DX: Z34.80 Encounter for supervision of other normal pregnancy, unspecified trimester (principal)
CPT/HCPCS: 76805; 76817

== ENCOUNTER → 2020-08-30 08:06 | Outpatient (CLI) | payer SELFPAY ==
[2020-08-03 08:16] VITALS: BMI 30.6
[2020-08-30 09:06] LABS: Absolute Lymphocyte Count 1.41 X10^3/uL (0.83-4.51); Absolute Neutrophil Count 6.2 X10^3/uL (2.0-7.7); Basophil# 0.02 X10^3/uL; Basophil% 0.2 % (0-1); Eosinophil# 0.09 X10^3/uL; Eosinophils% 1.1 % (0-5); Hematocrit 37.6 % (37-47); Hemoglobin 12.3 g/dL (12.0-15.0); Lymphocyte # 1.41 X10^3/ul (0.83-4.51); Lymphocyte % 16.5 % (19-41); Mean Corp Hgb Conc 32.7 g/dL (32-36); Mean Corpuscular Hgb 30.8 pg (27.0-32.0); Mean Platelet Vol. 10.6 fl (6.2-12.0); Monocyte# 0.74 X10^3/uL; Monocyte% 8.6 % (0-10); NRBC Flagged by Analyzer 0 % (0-5); Neutrophil # 6.21 X10^3/uL (2.7-7.7); Neutrophil % 72.4 % (47-70); Platelet Count 185 K/mm3 (150-450); RBC Distribution Width CV 12.5 % (11.6-14.6); White Blood Count 8.6 K/mm3 (4.4-11.0)
[2020-08-30 09:31] LABS: Glucose Challenge Gest 1H 50g 122 mg/dL (70-140)
[2020-08-30 11:59] LABS: Syphilis Antibodies Non-reactive
== END ==
PROVIDERS: Obstetrics & Gynecology; Referring Provider Nurse Practitioner Women's Health; Visit Provider Nurse Practitioner Women's Health
DX: Z34.80 Encounter for supervision of other normal pregnancy, unspecified trimester (principal)
CPT/HCPCS: 36415; 82950; 85025; 86780

== ENCOUNTER → 2020-10-25 08:47 | Outpatient (CLI) | payer SELFPAY ==
[2020-10-11 08:40] VITALS: BMI 32.8
--- NOTE | 2020-10-25 08:50 | US_ITS ---
STUDY: OBSTETRICAL ULTRASOUND - BIOPHYSICAL PROFILE REASON FOR EXAM: Female, 25 years old 36 weeks -- PRIOR HX OF OLIGO LMP: 02/14/2020. PRIOR ULTRASOUND: Comparison is made with prior examination dated 06/29/2020. TECHNIQUE: Transabdominal TECHNICAL QUALITY: Adequate. FINDINGS: There is a single intrauterine fetus. The fetus is in a cephalic presentation. There is demonstrated cardiac activity with a heart rate of 141 bpm. There is a normal amniotic fluid volume. The largest amniotic fluid pocket measures 5.3 cm. The amniotic fluid index (ELMIRA) is 11 cm. The placenta is anterior in location and is not low lying. There are Grade 2 placental changes. Age by LMP: 36 weeks, 2 days. JOHN by LMP: 11/20/2020. age by prior US: 36 weeks, 2 days. JOHN by prior US: 11/20/2020. BIOPHYSICAL PROFILE: Breathing Movements (FBM): 2 Gross Body Movements (GBM): 2 Tone (FT): 2 Amniotic Fluid Volume (AFV): 2 TOTAL SCORE: 8 / 8 US/Biophysical Prof W/O Non Stres IMPRESSION: Normal biophysical profile of 8/8. Electronically Signed: Sumanth Zhang MD at 10:26 EDT , Service support ,
== END ==
PROVIDERS: Referring Provider Nurse Practitioner Women's Health; Visit Provider Nurse Practitioner Women's Health
DX: O09.299 Supervision of pregnancy with other poor reproductive or obstetric history, unspecified trimester (principal); Z3A.32 32 weeks gestation of pregnancy
CPT/HCPCS: 76819; 87081

== ENCOUNTER → 2020-11-11 08:55 | Outpatient (CLI) | payer SELFPAY ==
--- NOTE | 2020-11-11 08:56 | US_ITS ---
STUDY: SECOND AND THIRD TRIMESTER OBSTETRICAL ULTRASOUND - LIMITED REASON FOR EXAM: Female, 25 years old low fundal height LMP: 02/14/2020. PRIOR ULTRASOUND: Comparison is made with prior examination of 10/25/2020. TECHNIQUE: Transabdominal TECHNICAL QUALITY: Adequate. FINDINGS: There is a single intrauterine fetus. The fetus is in a cephalic presentation. There is demonstrated cardiac activity with a heart rate of 140 bpm. There is a normal amniotic fluid volume. The largest amniotic fluid pocket measures 5.8 cm. The amniotic fluid index (ELMIRA) is 12 cm. The placenta is anterior in location and is not low lying. There are Grade 2 placental changes. The cervix was not measured due to the head positioning. BIOMETRY: BPD: 8.41 cm: 33 weeks, 6 days HC: 32.17: 36 weeks, 1 days AC: 34.5 cm: 38 weeks, 2 days FL: 7.1 cm: 36 weeks, 2 days Age by LMP: 38 weeks, 5 days. JOHN by LMP: 11/20/2020. age by prior US: 38 weeks, 5 days. JOHN by prior US: 11/20/2020. age by current US: 36 weeks, 2 days. JOHN by current US: 12/07/2020. Estimated weight: 3132 grams, +/- 74 grams, 29.2 percentile. US/OB Limited With Biometrics IMPRESSION: Single live intrauterine gestation with a mean gestational age of 38 weeks and 5 days. The measurements obtained today fall within the normal expected range. Electronically Signed: Sumanth Zhang MD at 15:20 EDT , Service support ,
== END ==
PROVIDERS: Referring Provider Obstetrics & Gynecology; Visit Provider Obstetrics & Gynecology
DX: O26.849 Uterine size-date discrepancy, unspecified trimester (principal); Z3A.00 Weeks of gestation of pregnancy not specified
CPT/HCPCS: 76816

== ENCOUNTER 2020-11-17 07:45 | Inpatient (IN) | payer SELFPAY ==
[2020-11-17] VITALS (22 sets, daily range): BP systolic 107–134; BP diastolic 60–78; PULSE 65–86; RESP 14–18; TEMP 36.3–36.8; O2SAT 96–99; BMI 32.5
[2020-11-17] MEDS: Lactated Ringers 1,000 ML 50 ML IV (08:15)
[2020-11-17 08:26] LABS: Absolute Lymphocyte Count 1.42 X10^3/uL (0.83-4.51); Absolute Neutrophil Count 8.3 X10^3/uL (2.0-7.7); Basophil# 0.04 X10^3/uL; Basophil% 0.4 % (0-1); Eosinophil# 0.04 X10^3/uL; Eosinophils% 0.4 % (0-5); Hematocrit 39.7 % (37-47); Hemoglobin 13.2 g/dL (12.0-15.0); Lymphocyte # 1.42 X10^3/ul (0.83-4.51); Lymphocyte % 13.3 % (19-41); Mean Corp Hgb Conc 33.2 g/dL (32-36); Mean Corpuscular Hgb 30.9 pg (27.0-32.0); Monocyte# 0.77 X10^3/uL; Monocyte% 7.2 % (0-10); NRBC Flagged by Analyzer 0 % (0-5); Neutrophil # 8.25 X10^3/uL (2.7-7.7); Neutrophil % 77.4 % (47-70); Platelet Count 213 K/mm3 (150-450); RBC Distribution Width SD 41.1 fl (35.1-43.9); Red Blood Count 4.27 M/mm3 (4.2-5.4); White Blood Count 10.7 K/mm3 (4.4-11.0)
--- NOTE | 2020-11-17 08:35 | HP.PCM.OB_ITS ---
HPI - General General Date of Admission: 11/17/20 HPI Narrative ANAYELI ACHARYA, is a 25 F at 39/4 who presents in active labor Maternal Data Information JOHN Calculator Estimated Delivery Date Method Current WG Current Estimate 11/20/20 LMP (Certain) 39w 4d Other Estimates 11/17/20 Ultrasound #1 40w 0d PFSH PFSH Home Medications prenat.vits,taylor,[id number] 1 tab PO DAILY 02/03/19 [History Last Taken 11/15/20 21:00] Allergy/AdvReac Type Severity Reaction Status Date / Time No Known Allergies Allergy Verified 11/17/20 08:25 Family History Mother Heart disease Father Heart disease Surgical History S/P ACL repair Social History adopted: No household members: family housing: house number of children: 1 current occupational status: employed Smoking Status: Never smoker second hand exposure: No alcohol intake: never substance use type: does not use well-balanced diet: daily or most days caffeine: No what type of physical activity do you participate in: none seatbelt use: always do you feel safe at home: Yes additional social history: - Ramone History 2 Elective abortions Hx Para 1 Spontaneous abortions Hx # Term Pregnancies Ectopic pregnancies Hx # Pregnancies 1 Multiple births # of living children 1 Past Pregnancies Del. Date Name GA/Weeks Outcome Route Bth Weight Infant Gen Labor Lgth Anesthesia Del [facility] Provider FOB 08/02/19 Perfecto 36 live - 6lbs 6oz Male 8 aspen rs epidural [facility] Dr. Selin Ferrari Delivery Date: 08/02/19 IOL [place] Celena Faye Visit Details Expected Delivery Route/Plan Labor Preferences- CB/BF classes: no labor support person: Ramone labor intervention preferences: pain management options preferred: epidural cut cord/dad catch: cord : yes PP control planned: condoms discussed possible routes of delivery and associated risks: [] special requests: [] Plans covid status: non immune, counseled regarding risk of covid in vs vaccination and declined vaccination flu vaccine: decline tdap vaccine: declines rhogam: na LARC form signed: declined movement and labor precautions reviewed. Problem list reviewed and updated with the most current plan of care details and appropriate orders placed. Relevant counseling for the gestational age provided. Continue routine care and follow up unless otherwise noted in visit notes/problem list details OB Flowsheet Initial Weight: Not Recorded Date -?-?-?-?-?-?-?-?-?-?-?-?- EGA Weight BP Urine Prot -?-?-?-?-?-?-?-?-?-?-?-?- Glucose FHR FuHt Pres Dilation -?-?-?-?-?-?-?-?-?-?-?-?- Effaced St Visit Note 04/12/20 -?-?-?-?-?-?-?-?-?-?-?-?- 8w 2d 164 lb 128/76 -?-?-?-?-?-?-?-?-?-?-?-?- 175 -?-?-?-?-?-?-?-?-?-?-?-?- GP - CRL 19mm co nsistent with LMP 05/10/20 -?-?-?-?-?-?-?-?-?-?-?-?- 12w 2d 165 lb 4 oz 122/80 Nega tive -?-?-?-?-?-?-?-?-?-?-?-?- Negative 160 -?-?-?-?-?-?-?-?-?-?-?-?- GP - no crampin g or bleeding. PRR. Awaiting NIPT results. Anatomy scan ordered. 06/09/20 -?-?-?-?-?-?-?-?-?-?-?-?- 16w 4d 168 lb 118/76 Trace -?-?-?-?--?-?-?-?-?-?-?-?- Negative 155 -?-?-?-?-?-?-?-?-?-?-?-?- MH-No Vb, LOF. R eviewed NIPT LR male. Anatomy US 06/2907/05/20 -?-?-?-?-?-?-?-?-?-?-?-?- 20w 2d 173 lb 130/80 Negative -?-?-?-?-?-?-?-?-?-?-?-?- Negative 145 -?-?-?-?-?-?-?-?-?-?-?-?- GP - no LOF, VB , DFM, ctx. Anatomy nl. 08/03/20 -?-?-?-?-?-?-?-?-?-?-?-?- 24w 3d 179 lb 118/70 Trace -?-?-?-?-?-?-?-?-?-?-?-?- Negative 149 -?-?-?-?-?-?-?-?-?-?-?-?- MH-No VB, LOF. G ood FM. 08/30/20 -?-?-?-?-?-?-?-?-?-?-?-?- 28w 2d 182 lb 122/77 Negative -?-?-?-?-?-?-?-?-?-?-?-?- Negative 145 28 -?-?--?-?-?-?-?-?-?-?-?-?- SM- no vb lof go od fm no regular ctx decline dtdap 09/13/20 -?-?-?-?-?-?-?-?-?-?-?-?- 30w 2d 183 lb 4 oz 120/72 Nega tive -?-?-?-?-?-?-?--?-?-?-?-?- Negative 140 30 -?-?-?-?-?-?-?-?-?-?-?-?- Sm- no vb lof go od fm no regular tcx 09/27/20 -?-?-?-?-?-?-?-?-?-?-?-?- 32w 2d 185 lb 6 oz 136/74 Nega tive -?-?-?-?-?-?-?-?-?-?-?-?- Negative 135 32 Cephalic -?-?-?-?-?-?-?-?-?-?-?-?- GP - no LOF, VB, DFM, ctx. Denies complaints. 10/11/20 -?-?-?-?-?-?-?-?-?-?-?-?- 34w 2d 186 lb 2 oz 120/68 Trac e -?-?-?-?-?-?-?-?-?-?-?-?- Negative 158 34 -?-?-?-?-?-?-?-?-?-?-?-?- MH-No VB, LOF. G ood FM. No CTX. Has US at 36 wk to check fluid 10/25/20 -?-?-?-?-?-?-?-?-?-?-?-?- 36w 2d 187 lb 120/78 Negative -?-?-?-?-?-?-?-?-?-?-?-?- Negative 145 34 Cephalic 1 -?-?-?-?-?-?-?-?-?-?-?-?- 20 -2 SM- no vb nlof good fm nor euglar ctx gbs today 11/01/20 -?-?-?-?-?-?-?-?-?-?-?-?- 37w 2d 188 lb 130/88 Negative -?-?-?-?-?-?-?-?-?-?-?-?- Negative 130 36 Cephalic 1 -?-?-?-?-?-?-?-?-?-?-?-?- GP - no LOF, VB, DFM, ctx. Denies complaints. 11/11/20 -?-?-?-?-?-?-?-?-?-?-?-?- 38w 5d 189 lb 6 oz 124/82 Nega tive -?-?-?-?-?-?-?-?-?-?-?-?- Negative 140 36 Cephalic 3 -?-?-?-?-?-?-?-?-?-?-?-?- 50 -1 SM- n ovb lof good fm no reuglar ctx feel pressure check growth scan low FH 11/15/20 -?-?-?-?-?-?-?-?-?-?-?-?- 39w 2d 189 lb 6 oz 134/78 Nega tive -?-?-?-?-?-?-?-?-?-?-?-?- Negative 140 39 38 Cephalic 4 -?-?-?-?-?-?-?-?-?-?-?-?- 60 -1 Sm- no vb lof good fm no reuglar ctx 11/17/20 -?-?-?-?-?-?-?-?-?-?-?-?- 39w 4d 183 lb 10.321 oz -?-?-?-?-?-?-?-?-?-?-?-?- -?-?-?-?-?-?-?-?-?-?-?-?- NST FHR Rate Baby A Baseline: 130 Variability:: Moderate Accelerations:: 15 x 15 Decelerations:: None NST Reactive:: Yes FHR Category:: Category I Uterine Activity:: q2-5min ROS Eyes Eyes: Reports systems reviewed and no addt'l complaints, except as documented ENT HEENT: Reports systems reviewed and no addt'l complaints, except as documented Cardiovascular Cardiovascular: Reports systems reviewed and no addt'l complaints, except as documented Respiratory/Chest Respiratory/Chest: Reports systems reviewed and no addt'l complaints, except as documented Gastrointestinal Gastrointestinal: Reports systems reviewed and no addt'l complaints, except as documented Genitourinary Genitourinary: Reports systems reviewed and no addt'l complaints, except as documented Musculoskeletal Musculoskeletal: Reports systems reviewed and no addt'l complaints, except as documented Integumentary Integumentary: Reports systems reviewed and no addt'l complaints, except as documented Neurologic Neurologic: Reports systems reviewed and no addt'l complaints, except as documented Psychiatric Psychiatric: Reports systems reviewed and no addt'l complaints, except as documented Endocrine Endocrinology: Reports systems reviewed and no addt'l complaints, except as documented Hematologic/Lymphatic Hematologic/Lymphatic: Reports systems reviewed and no addt'l complaints, except as documented Allergic/Immunologic Allergic/Immunologic: Reports systems reviewed and no addt'l complaints, except as documented Vital Signs Vital Signs Vital Signs: Weight Weight: 183 lb 10.321 oz Body Mass Index (BMI) 32.5 Physical Exam Const alert, oriented x3, no apparent distress, average body habitus, healthy appearing and well nourished HEENT normocephalic and moist oral mucous membranes Head and Scalp: atraumatic Eyes PERRL and EOMs intact bilaterally Neck full ROM Resp normal respiratory effort, no retractions and no use of accessory muscles Cardio regular rate and regular rhythm GI soft to palpation, non-tender and non-distended Extremity normal to inspection and full ROM Skin no rashes or lesions noted Neuro no focal motor deficits and no sensory deficits noted Psych mental status grossly normal, affect normal, speech normal and activity/motor behavior normal Labs Labs Labs: Blood Type A POSITIVE Antibody Screen NEGATIVE Hct 39.7 % (37-47) Hgb 13.2 g/dL (12.0-15.0) Obstetrics US Syphilis Total Ab Non-reactive Rubella IgG Antibody Reactive (Nonreactive) Hep Bs Antigen Non-Reactive (Nonreactive) Neisseria gonorrhoeae DNA (MILIND) Negative (Negative) HIV 1&2 Antibody Non-Reactive (Nonreactive) C.trachomatis DNA (PCR) Negative (Negative) Glucose 1 Hr 50 gm 122 mg/dL (70-140) Rhogam given: No Miscellaneous Test Assessment & Plan (1) Short interval between pregnancies affecting , antepartum: COMMENT: Child 8mo old at [facility] (2) History of oligohydramnios in prior , currently : COMMENT: IoL at 36 weeks in prior , 11/11 US nl (3) Supervision of other normal : COMMENT: PRR JOHN: 11/20/20 Boy Rene PC: Perfecto Spouse: Ramone (4) : QUALIFIERS: Weeks of gestation: 39 weeks Qualified Code(s): Z3A.39 - 39 weeks gestation of COMMENT: genetic LR, declines carrier and ntd screen. anatomy nl; GBS NEG (5) Active labor at term: PLAN: Patient presents IAL, plan expectant management for , pitocin/AROM PRN if needed. Pain management: desires natural but open to epidural. GBS negative. Management of any complications: none I have reviewed the PFSH and made any clinically relevant updates.
--- NOTE | 2020-11-17 08:35 | PCM.HP.OB ---
HPI - General General Date of Admission: 11/17/20 HPI Narrative ANAYELI ACHARYA, is a 25 F at 39/4 who presents in active labor Maternal Data Information JOHN Calculator Estimated Delivery Date Method Current WG Current Estimate 11/20/20 LMP (Certain) 39w 4d Other Estimates 11/17/20 Ultrasound #1 40w 0d PFSH PFSH Home Medications prenat.vits,taylor,olo-[id number] 1 tab PO DAILY 02/03/19 [History Last Taken 11/15/20 21:00] Allergy/AdvReac Type Severity Reaction Status Date / Time No Known Allergies Allergy Verified 11/17/20 08:25 Family History Mother Heart disease Father Heart disease Surgical History S/P ACL repair Social History adopted: No household members: family housing: house number of children: 1 current occupational status: employed Smoking Status: Never smoker second hand exposure: No alcohol intake: never substance use type: does not use well-balanced diet: daily or most days caffeine: No what type of physical activity do you participate in: none seatbelt use: always do you feel safe at home: Yes additional social history: - Ramone History 2 Elective abortions Hx Para 1 Spontaneous abortions Hx # Term Pregnancies Ectopic pregnancies Hx # Pregnancies 1 Multiple births # of living children 1 Past Pregnancies Del. Date Name GA/Weeks Outcome Route Bth Weight Infant Gen Labor Lgth Anesthesia Del [facility] Provider FOB 08/02/19 Perfecto 36 live - 6lbs 6oz Male 8 hours epidural [facility] Dr. Selin Ferrari Delivery Date: 08/02/19 IOL Celena Flores Visit Details Expected Delivery Route/Plan Labor Preferences- CB/BF classes: no labor support person: Ramone labor intervention preferences: pain management options preferred: epidural cut cord/dad catch: cord : yes PP control planned: condoms discussed possible routes of delivery and associated risks: [] special requests: [] Plans covid status: non immune, counseled regarding risk of covid in vs vaccination and declined vaccination flu vaccine: decline tdap vaccine: declines rhogam: na LARC form signed: declined movement and labor precautions reviewed. Problem list reviewed and updated with the most current plan of care details and appropriate orders placed. Relevant counseling for the gestational age provided. Continue routine care and follow up unless otherwise noted in visit notes/problem list details OB Flowsheet Initial Weight: Not Recorded Date <del>?</del> EGA Weight BP Urine Prot <del>?</del> Glucose FHR FuHt Pres Dilation <del>?</del> Effaced St Visit Note 04/12/20 <del>?</del> 8w 2d 164 lb 128/76 <del>?</del> 175 <del>?</del> GP - CRL 19mm consistent with LMP 05/10/20 <del>?</del> 12w 2d 165 lb 4 oz 122/80 Negative <del>?</del> Negative 160 <del>?</del> GP - no cramping or bleeding. PRR. Awaiting NIPT results. Anatomy scan ordered. 06/09/20 <del>?</del> 16w 4d 168 lb 118/76 Trace <del>?</del> Negative 155 <del>?</del> MH-No Vb, LOF. Reviewed NIPT LR male. Anatomy US 06/2907/05/20 <del>?</del> 20w 2d 173 lb 130/80 Negative <del>?</del> Negative 145 <del>?</del> GP - no LOF, VB, DFM, ctx. Anatomy nl. 08/03/20 <del>?</del> 24w 3d 179 lb 118/70 Trace <del>?</del> Negative 149 <del>?</del> MH-No VB, LOF. Good FM. 08/30/20 <del>?</del> 28w 2d 182 lb 122/77 Negative <del>?</del> Negative 145 28 <del>?</del> SM- no vb lof good fm no regular ctx decline dtdap 09/13/20 <del>?</del> 30w 2d 183 lb 4 oz 120/72 Negative <del>?</del> Negative 140 30 <del>?</del> Sm- no vb lof good fm no regular tcx 09/27/20 <del>?</del> 32w 2d 185 lb 6 oz 136/74 Negative <del>?</del> Negative 135 32 Cephalic <del>?</del> GP - no LOF, VB, DFM, ctx. Denies complaints. 10/11/20 <del>?</del> 34w 2d 186 lb 2 oz 120/68 Trace <del>?</del> Negative 158 34 <del>?</del> MH-No VB, LOF. Good FM. No CTX. Has US at 36 wk to check fluid 10/25/20 <del>?</del> 36w 2d 187 lb 120/78 Negative <del>?</del> Negative 145 34 Cephalic 1 <del>?</del> 20 -2 SM- no vb nlof good fm nor euglar ctx gbs today 11/01/20 <del>?</del> 37w 2d 188 lb 130/88 Negative <del>?</del> Negative 130 36 Cephalic 1 <del>?</del> GP - no LOF, VB, DFM, ctx. Denies complaints. 11/11/20 <del>?</del> 38w 5d 189 lb 6 oz 124/82 Negative <del>?</del> Negative 140 36 Cephalic 3 <del>?</del> 50 -1 SM- n ovb lof good fm no reuglar ctx feel pressure check growth scan low FH 11/15/20 <del>?</del> 39w 2d 189 lb 6 oz 134/78 Negative <del>?</del> Negative 140 39 38 Cephalic 4 <del>?</del> 60 -1 Sm- no vb lof good fm no reuglar ctx 11/17/20 <del>?</del> 39w 4d 183 lb 10.321 oz <del>?</del> <del>?</del> NST FHR Rate Baby A Baseline: 130 Variability:: Moderate Accelerations:: 15 x 15 Decelerations:: None NST Reactive:: Yes FHR Category:: Category I Uterine Activity:: q2-5min ROS Eyes Eyes: Reports systems reviewed and no addt'l complaints, except as documented ENT HEENT: Reports systems reviewed and no addt'l complaints, except as documented Cardiovascular Cardiovascular: Reports systems reviewed and no addt'l complaints, except as documented Respiratory/Chest Respiratory/Chest: Reports systems reviewed and no addt'l complaints, except as documented Gastrointestinal Gastrointestinal: Reports systems reviewed and no addt'l complaints, except as documented Genitourinary Genitourinary: Reports systems reviewed and no addt'l complaints, except as documented Musculoskeletal Musculoskeletal: Reports systems reviewed and no addt'l complaints, except as documented Integumentary Integumentary: Reports systems reviewed and no addt'l complaints, except as documented Neurologic Neurologic: Reports systems reviewed and no addt'l complaints, except as documented Psychiatric Psychiatric: Reports systems reviewed and no addt'l complaints, except as documented Endocrine Endocrinology: Reports systems reviewed and no addt'l complaints, except as documented Hematologic/Lymphatic Hematologic/Lymphatic: Reports systems reviewed and no addt'l complaints, except as documented Allergic/Immunologic Allergic/Immunologic: Reports systems reviewed and no addt'l complaints, except as documented Vital Signs Vital Signs Vital Signs: Weight Weight: 183 lb 10.321 oz Body Mass Index (BMI) 32.5 Physical Exam Const alert, oriented x3, no apparent distress, average body habitus, healthy appearing and well nourished HEENT normocephalic and moist oral mucous membranes Head and Scalp: atraumatic Eyes PERRL and EOMs intact bilaterally Neck full ROM Resp normal respiratory effort, no retractions and no use of accessory muscles Cardio regular rate and regular rhythm GI soft to palpation, non-tender and non-distended Extremity normal to inspection and full ROM Skin no rashes or lesions noted Neuro no focal motor deficits and no sensory deficits noted Psych mental status grossly normal, affect normal, speech normal and activity/motor behavior normal Labs Labs Labs: Blood Type A POSITIVE Antibody Screen NEGATIVE Hct 39.7 % (37-47) Hgb 13.2 g/dL (12.0-15.0) Obstetrics US Syphilis Total Ab Non-reactive Rubella IgG Antibody Reactive (Nonreactive) Hep Bs Antigen Non-Reactive (Nonreactive) Neisseria gonorrhoeae DNA (MILIND) Negative (Negative) HIV 1&2 Antibody Non-Reactive (Nonreactive) C.trachomatis DNA (PCR) Negative (Negative) Glucose 1 Hr 50 gm 122 mg/dL (70-140) Rhogam given: No Miscellaneous Test Assessment & Plan (1) Short interval between pregnancies affecting , antepartum: COMMENT: Child 8mo old at NOB (2) History of oligohydramnios in prior , currently : COMMENT: IoL at 36 weeks in prior , 11/11 US nl (3) Supervision of other normal : COMMENT: PRR JOHN: 11/20/20 Jean Claude López PC: Perfecto Spouse: Ramone (4) : QUALIFIERS: Weeks of gestation: 39 weeks Qualified Code(s): Z3A.39 - 39 weeks gestation of COMMENT: genetic LR, declines carrier and ntd screen. anatomy nl; GBS NEG (5) Active labor at term: PLAN: Patient presents IAL, plan expectant management for , pitocin/AROM PRN if needed. Pain management: desires natural but open to epidural. GBS negative. Management of any complications: none I [facility] and made any clinically relevant updates.
[2020-11-17] MEDS: Oxytocin 30 units/NS 500 ml 30 UNITS/500 ML IV.SOLN 334 UNITS IV (11:52)
--- NOTE | 2020-11-17 12:46 | OP.PCM_ITS ---
Assessment & Plan (1) Active labor at term: (2) Short interval between pregnancies affecting , antepartum: COMMENT: Child 8mo old at NOB (3) History of oligohydramnios in prior , currently : COMMENT: IoL at 36 weeks in prior , 11/11 US nl (4) Supervision of other normal : COMMENT: PRR JOHN: 11/20/20 Jean Claude López PC: Perfecto Spouse: Ramone (5) : QUALIFIERS: Weeks of gestation: 39 weeks Qualified Code(s): Z3A.39 - 39 weeks gestation of COMMENT: genetic LR, declines carrier and ntd screen. anatomy nl; GBS NEG Maternal Data Information JOHN Calculator Estimated Delivery Date Method Current WG Current Estimate 11/20/20 LMP (Certain) 39w 4d Other Estimates 11/17/20 Ultrasound #1 40w 0d Vaginal Delivery Maternal Presentation Maternal Presentation: Active Labor Maternal Presentation: 25-year-old at 39 weeks gestation admitted in active labor. Patient made cervical change to complete dilation following artificial rupture of membranes Operative Information Date of Procedure: 11/17/20 Pre-Operative Diagnosis: Term , active labor Post-Operative Diagnosis: Same Surgery / Procedure Performed: Spontaneous Vaginal Delivery Type of Anesthesia: Local with 1% Lidocaine Drain: Arellano to straight drain Estimated Blood Loss: 150 cc Findings Description of Procedure: Patient began pushing and delivered the head in the ROSETTA presentation. The head was delivered atraumatically and no nuchal cord was noted. The anterior and posterior shoulders delivered without complication followed by the rest of the infant and the infant was placed on the maternal abdomen. Delayed cord clamping was employed for approximately 60 seconds. Cord was clamped and cut and gentle traction was applied to the cord and the placenta delivered spontaneously immediately following it was noted to be intact with three-vessel cord. The perineum and vagina were inspected and a midline first- degree perineal laceration was noted and instilled with 10 cc of 1% lidocaine then repaired in the standard fashion using 3-0 Vicryl rapide suture. EBL was 150 cc. Patient and tolerated delivery well. Presentation: Vertex and ROSETTA Amniotic Membrane Rupture Type: Artificial Amniotic Fluid Description: Clear Placental Delivery Description: Spontaneous Placenta Disposition: [facility] Cord Vessel Description: 3 Vessels Cord Entanglement: None Infant A Gender: Male Delayed Cord Clamping: Yes Post Vaginal Delivery Medications Given After Delivery: IV Pitocin Episiotomy Description: None Laceration: Midline, Perineal Extension/lac and 1st degree Complication Complications: None Admit VTE Documentation VTE Present on Admission: No VTE Mechan Device Prophylaxis: SCD's VTE Pharm Prophylaxis Ordered: No Procedures Urinary/Genital [id number]: [id number] Vaginal Delivery [facility]
--- NOTE | 2020-11-17 12:50 | PCM.DC ---
Discharge Instructions Diet Discharge Diet: No restrictions Activity Discharge Activity: Return to Normal Activity, May Not Drive (while taking narcotic pain medications.) and May Shower May resume sexual activity in: 4-6 weeks Dressing / Incision Call your doctor if your incision/area has: Continuous Slow Oozing, Sudden Increased Bleeding, Increased Pain/ Swelling, Increased Redness and Foul Smelling Discharge Follow Up Care When: Call to make an appointment with your doctor in 6 weeks. If you had elevated Blood Pressure or 4th degree laceration you will need to be seen in 2 weeks. Test Results: Test results from this visit will be discussed in further detail at your follow-up appointment, if applicable. Discharge Plan Admission Admit Date/Time: 11/17/20 07:45 Primary Reason for Your Visit: labor Attending Provider: Millie Watkins Primary Care Provider: Paradise Mendieta,Vannessa Primary Consulting Providers: eSlin Ferrari Instructions Patient Instructions: After a Vaginal Discharge Orders/Prescriptions Prescriptions: New ibuprofen 800 mg tablet 800 mg PO Q8H PRN (Reason: pain) Qty: 30 RF: 1 Continued prenat.vits,taylor,gby-[id number] Tablet 1 tab PO DAILY RF: 0 Referrals / Follow Up: Care Physician,No Primary [Primary Care Provider] -
[2020-11-17] MEDS: Ibuprofen 600 MG Tablet PO (14:04)
[2020-11-18] MEDS: Ibuprofen 600 MG Tablet PO (00:37)
[2020-11-18 04:07] VITALS: BP 111/63; PULSE 77; RESP 16; TEMP 36.3
[2020-11-18 07:25] VITALS: BP 136/60; PULSE 74; RESP 18; TEMP 36.2
--- NOTE | 2020-11-18 08:52 | PCM.PN.OB ---
Subjective Subjective Patient doing well without complaints. Tolerating PO. Ambulating and voiding without difficulty. Breast feeding well. Denies chest pain, shortness of breath, calf pain/swelling, fevers, chills, lightheadedness. Objective Data Objective Data Vital Signs: Vital Signs Temp Pulse Resp BP Pulse Ox 97.1 F L 74 18 136/60 H 98 11/18/20 07:25 11/18/20 07:25 11/18/20 07:25 11/18/20 07:25 11/17/20 20:01 Oxygen Delivery Method Room Air Weight: 183 lb 10.321 oz Body Mass Index (BMI) 32.5 Intake & Output: Intake and Output for Last 24 Hours 11/16/20 11/17/20 11/18/20 23:59 23:59 23:59 Intake Total 1030.83 / 1030.83 Output Total 400 / 400 Balance 630.83 / 630.83 Lab / Micro Data Result Diagrams: 11/17/20 08:05 Labs: Laboratory Results - last 24 hr 11/17/20 08:05: Blood Type A POSITIVE, Antibody Screen NEGATIVE Micro: Microbiology 11/17/20 08:05 Nasal Secretion SARS-CoV-2 Antigen (Rapid) - Final ROS Constitutional Constitutional: Denies fever(s) Cardiovascular Cardiovascular: Denies chest pain, dyspnea or lightheadedness Gastrointestinal Gastrointestinal: Reports abdominal pain; Denies constipation or diarrhea Neurologic Neurologic: Denies dizziness or headache(s) Physical Exam Const alert, oriented x3, no apparent distress, average body habitus, healthy appearing and well nourished HEENT normocephalic Head and Scalp: atraumatic Eyes PERRL and EOMs intact bilaterally Neck full ROM Lymph Lymphatic: no lymphadenopathy noted Resp normal respiratory effort, no retractions and no use of accessory muscles Cardio regular rate GI soft to palpation, non-tender and non-distended Palpation: other Other Details: fundus firm Extremity normal to inspection and no clubbing, cyanosis or edema Skin no rashes or lesions noted Neuro no focal motor deficits and no sensory deficits noted Psych mental status grossly normal, affect normal and speech normal Assessment & Plan (1) Spontaneous vaginal delivery: COMMENT: GP IAAnt 11/17 Boy-Luke PLAN: s/p PPD # 1 1. routine post delivery care 2. breast feeding- support given 3. rh positive 4. rubella immune
[2020-11-18 13:37] VITALS: BP 121/64; PULSE 84; RESP 16; TEMP 36.2
[2020-11-18 13:40] VITALS: BP 121/64; PULSE 84
--- NOTE | 2020-11-22 16:42 | NURSING ---
Follow up phone call done, reports doing very well and is going well. Denies questions or concerns and was satisfied with her care.
== END 2020-11-18 15:30 | disposition home or self-care (01) | DRG 807 ==
LOC: WPOUT 07:49 → WP 07:49
PROVIDERS: Admitting Provider Obstetrics & Gynecology; Referring Provider Obstetrics & Gynecology; Visit Provider Obstetrics & Gynecology
DX: O70.0 First degree perineal laceration during delivery (principal); Z37.0 Single live birth; Z3A.39 39 weeks gestation of pregnancy
CPT/HCPCS: 59025; 59050; 85025; 86850; 86900; 86901; 87426; 99218; J7120; G0378

== ENCOUNTER → 2025-01-28 | Outpatient (CLI) | payer OTHER, SELFPAY ==
--- OUTSIDE RECORDS SUMMARY | 2025-01-28 16:41 | XMS RPT_ITS | CCD ---
Author Organization [facility] Informformerly [facility] Partnership [facility] Care Team Providers Care Coal Grader Name Role Phone Unavailable Primary Care Provider Unavailabl e ANGIE DE Referring Unavailable ANGIE DE Attending Unavailable Medications Current Medications Medication Drug Class(es) Dates Sig (Normalized) Sig (Original) Leg Brace (KNEE BRACE) misc (2 sources) Start: 07-09-2013 Leg Brace (KNEE BRACE) misc Indications: ACL tear DISPENSE ONE ACL BRACE 1 Each 0 07/09/2013 Active Problems Active Problems Problem Classification Problem Date Documented Da te Episodic/Chronic Allergic reactions (2 sources) Adverse reaction to food; Translations: [Other adverse food reactions, not elsewhere classified, initial encounter] Onset: 11-27-2023 11-27-2023 Episodic Joint disorders and dislocations; trauma-related (2 sources) Derangement of knee; Translations: [Unspecified internal derangement of unspecified knee] Onset: 03-17-2011 03-17-2011 Chronic Other nervous system disorders (2 sources) Difficulty in walking, not elsewhere classified; Translations: [Difficulty in walking] Onset: 04-07-2011 04-07-2011 Chronic Other skin disorders (1 source) Eruption; Translations: [Rash and other nonspecific skin eruption] 11-27-2023 Episodic Other upper respiratory disease (1 source) Non-allergic rhinitis; Translations: [Chronic rhinitis] 11-27-2023 Chronic Past or Other Problems Problem Classification Problem Date Documented Date Episodic/Chronic Other aftercare (2 sources) Surgical follow-up; Translations: [Encounter for follow-up examination after completed treatment for conditions other than malignant neoplasm] Onset: 05-28-2013 05-28-2013 Episodic Other connective tissue disease (2 sources) Muscle weakness; Translations: [Muscle weakness (generalized)] Onset: 05-07-2013 05-07-2013 Episodic Other non-traumatic joint disorders (2 sources) Pain in lower limb; Translations: [Pain in unspecified knee] Onset: 04-07-2011 04-07-2011 Episodic Residual codes; unclassified (2 sources) Postoperative state; Translations: [Other specified postprocedural states] Onset: 04-23-2011 04-23-2011 Episodic Sprains and strains (2 sources) Rupture of anterior cruciate ligament; Translations: [Sprain of anterior cruciate ligament of unspecified knee, initial encounter] Onset: 04-23-2011 04-23-2011 Episodic Results Test Name Value Interpretation Reference Range Facil ity ALGN RED DYE IGEon Red dye IgE Qn (S) <0.35 Normal <0.35 [facility] Comment on above: Order Comment: Audie drew Type: BLOOD SPECIMEN Ordering Facility: [facility] Address: [address] [place] [address] Performed By: #### R EDDYE #### [facility] CLIA [id number] [address] [place] [address] [place] Red dye IgE RAST class (S) Class 0 Normal Class 0 [facility] Comment on above: Order Comment: Audie drew Type: BLOOD SPECIMEN Ordering Facility: [facility] Address: [address] [place] [address] Performed By: #### R EDDYE #### [facility] CLIA [id number] [address] [place] [address] [place] CNOVon 11-27-2023 CNOV Office Visit (ALAPEF ) ISABEL ACHARYA ([id number]) 1995 F Date Time Provider Department 11/27/23 1:00 PM ANGIE DE During your visit today, we recorded the following information about you: Temperature Pulse Blood pressure Weight 97.6 degrees 81/minute 124/79 57.2 kg Angie De MD 11/27/2023 2:51 PM Signed Allergy and Immunology Patient Name: Isabel Acharya PRIMARY CARE PHYSICIAN: No primary care provider on file. REASON FOR CONSULT: rash REQUESTING PHYSICIAN: Dr. Wing ([facility]) [phone] My final recommendations will be communicated to the requesting health care provider by way of the shared medical record for internal providers or letter via the [facility] for external providers. Isabel Acharya is a 28 year old female who presents today for evaluation of rash. Patient reports having a facial rash (also on her neck, chest and abdomen) for the past two months She randomly started with face breaking out She feels that her face is on fire and very itchy Lasts a couple of days and then it goes away She noticed that the rash was triggered by eating proteins and red dye, so she stopped eating high protein diet and things containing red dye. For a while, her rash was better but then she started to have breakouts again when she ate eggs, so she was worried that egg was a trigger She takes benadryl when the rash breaks out and that seems to help She has mild seasonal allergies, worse in October She gets stuffy and has watery itchy eyes No history of acne or rosacea The only new thing the past few months is high protein diet Taking Benadryl and Claritin Allergic/Infectious Personal History: Nasal polyps: The patient has never had nasal polyps. Asthma: The patient has no history of asthma. Sinusitis: The patient does not suffer from frequent sinopulmonary infections. 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 PAST SURGICAL HISTORY Procedure Laterality Date PAST SURGICAL HISTORY OF 2012 left ACL repair ALLERGIES: has No Known Allergies. FAMILY HISTORY: FAMILY HISTORY Problem Relation Age of Onset Heart Father REVIEW OF SYSTEMS: All systems were reviewed and were negative except as listed in the HPI and above. PHYSICAL EXAM: BP 124/79 Pulse 81 Temp 36.4 ?C (97.6 ?F) Wt 57.2 kg (126 lb) LMP 03/03/2011 SpO2 100% There is no height or weight on file to calculate BMI. General: The patient is pleasant, well groomed, in no acute distress, breathing comfortably and interactive with the exam. Head: Normocephalic, atraumatic Eyes: Conjunctiva not injected, no drainage. Lymph: No cervical or supraclavicular LAD. Musculoskeletal: Normal muscle tone and gait. Neurologic: Grossly non-focal Psych: Appropriate affect. Dermatologic: No rash, urticaria or excoriations. Percutaneous Allergy Testing: November 26, 2023 Skin testing was performed using standard technique and interpreted in the setting of valid positive and negative controls. SPT: all negative Please see nurse's note for more details: Allergens Wheal/Flare (mm) Negative Control 50%Glycerin/50%Cocas 0/0 Cat Hair 10,000 BAU/ml 0/0 Dog Epithelial 1:100 0/0 Cockroach Mix 1:10 0/0 Mite Df 30,000 AU/ml 0/0 Mite Dp 30,000AU/ml 3/3 Alternaria Alternata 1:10 0/0 Aspergillus Fumigatus 1:10 0/0 Hormodendrum Cladosporium 1:10 0/0 Epicoccum Nigrum 1:10 0/0 Fusarium Solani 1:10 0/0 Helminthosporium 1:10 0/0 Penicillium Mix 1:10 0/0 Hero, White 1:20 0/0 Beech, [place]an 1:20 0/0 Birch Mix 1:20 0/0 Maple Mix 1:20 0/0 Manchaca ,Eastern 1:20 0/0 Mugwort 1:20 0/0 [place]oa, Shagbark 1:20 0/0 [place] Tree, Red 1:20 0/0 Lambert, Black 1:20 0/0 [place], [place]an/Eastern 1:20 0/0 [place] Pollen, Black 1:20 0/0 [place] Flat, Black 1:20 0/0 B[place]uda Grass 10,000 BAU/ml 0/0 [place], Blue/Franny 100,000 BAU/ml 0/0 Fescue, [place] 100,000 BAU/ml 0/0 Wolf Grass 1:20 0/0 Orchard Grass 100,000 BAU/ml 0/0 Perennial Elgin, 100,000 BAU/ml 0/0 Nacho 100,000 BAU/ml 0/0 Cocklebur 1:20 0/0 Cunard, sheep 1:20 0/0 Plantain, Lebanese 1:20 0/0 Lambs Quarters 1:20 0/0 Atkins Elder, Burweed 1:20 0/0 Pigweed, Rough 1:20 0/0 Ragweed, Mix 1:20 0/0 HISTAMINE (Histamine base 6mg/ml) Egg 0/0 Feather 0/0 Assessment/Plan: Rash and nonspecific (more content not included)... Normal [facility] CNPNon 11-27-2023 CNPN Telephone (ALAPEF) ISABEL ACHARYA ([id number]) 1995 F Date Time Provider Department 11/27/23 ANGIE DE During your visit today, we recorded the following information about you: Brenden Colvin, MARBIN 11/27/2023 4:29 PM Signed Angie De MD [facility] Nurse Pool Please send copy of my progress note to Krys Wing DO in [facility] Note faxed to [facility] with confirmation Allergies As of Date: 11/27/2023 (No Known Allergies) Date Reviewed: 07/09/2013 Reviewed by: Mounika Mccain - Fully Assessed Prescriptions as of 11/28/2023 - Leg Brace (KNEE BRACE) [facility] [place] DISPENSE ONE ACL BRACE Problem List As Of Date 11/27/2023 Noted Resolved Internal derangement of knee [M23.90] 03/17/2011 Pain in joint, lower leg [M25.569] 04/07/2011 Difficulty in walking [R26.2] 04/07/2011 ACL tear [S83.519A] 04/23/2011 Post-operative state [Z98.890] 04/23/2011 Muscle weakness (generalized) [M62.81] 05/07/2013 Follow-up examination, following unspecified haq*05/28/2013 Encounter Status:Closed by BRENDEN COLVIN on 11/28/23 Normal [facility] Culture, Throaton 05-30-2021 Culture, Throat ORDER#: [id number] ORDERED BY: JOHN MCKINNEY SOURCE: Throat Throat COLLECTED: 05/30/21 08:16 ANTIBIOTICS AT VETO.: RECEIVED : 05/30/21 08:31 Culture, Throat FINAL 06/01/21 10:29 Cult,Throat: Oral debbie, negative for Group A Strep and other beta Cult,Throat: hemolytic streptococci Performed at [employer] [address] [place] [address] [facility] Comment on above: Performed By: #### C XTHR #### [facility] [address] [place] [address] English Tutor Office Visit Reporton 12-22-2020 English Tutor Office Visit Report [facility] [address] [place], [place] [address] OFFICE VISIT Date of Service: 12/22/20 MR#: [id number] Acct: [id number] Name: ISABEL ACHARYA Rep #: [id number] : 1995 Provider: BEAU ramirez Age/Sex: 25/F [place] [facility] [place]: Signed Intake Vital Signs 12/22/20 10:13 Weight: 165 lb 6 oz BP 110/70 Intake Visit Reasons: 6 WK PP, declined IUD Allergies No Known Allergies Allergy (Verified 12/22/20 10:09) Medications prenat.vits,taylor,min-ir on-folic 1 tab PO DAILY 02/03/19 [History Confirmed 12/22/20] ibuprofen 800 mg PO Q8H PRN #30 tab 11/17/20 [Rx Confirmed 12/22/20] : Yes [facility] Medical History (Updated 12/22/20 @ 10:40 by Kristin Red PYRIDINE OPERATOR, PYRIDINE OPERATOR-C) History of oligohydramnios in prior , currently Spontaneous vaginal delivery Surgical History S/P ACL repair Family History Mother Heart disease Father Heart disease Social History adopted: No household members: family housing: house number of children: 1 current occupational status: employed Smoking Status: Never smoker second hand exposure: No alcohol intake: never substance use type: does not use well-balanced diet: daily or most days caffeine: No what type of physical activity do you participate in: none seatbelt use: always do you feel safe at home: Yes additional social history: - Ramone Pregancy History 2 Elective abortions Hx Para 1 Spontaneous abortions Hx # Term Pregnancies Ectopic pregnancies Hx # Pregnancies 2 Multiple births # of living children 2 Past Pregnancies Del. Date Name GA/Weeks Outcome Route Bth Weight Gen Labor Lgth Anesthesia Del Locatn Provider FOB 08/02/19 Perfecto 36 live - 6lbs 6oz Male 8 hours epidural [facility] Dr. Selin Ferrari 11/17/20 Rene 39 live - full term Male local [facility] GP Delivery Date: 08/02/19 IOL [place] Neyda,Celena Delivery Date: 11/17/20 1st degree laceration Yudy Sinha Depression Screen PHQ-2/9 PHQ-2 Over the last 2 weeks, how often have you been bothered by any of the following problems? 1. Little interest or pleasure in doing things: not at all 2. Feeling down, depressed, or hopeless: not at all Total score: 0 Post HPI 6 WK PP, declined IUD: Details: ISABEL ACHARYA is a 25 year old who presents for her post visit. Doing well emotionally and physically. Baby Rene is doing well also. MJ is 17 mo and adjusting/jealous of baby. Feeding: Breast Menses resumed: No [place] since delivery: Yes Emotional Support: Yes Last Pap:: 2019 Details: ISABEL ACHARYA is a 25 year old who presents for her post visit. ROS Card Denies chest pain and Denies dyspnea Resp Denies dyspnea GI Denies bloating and Denies change in bowel habits Denies difficulty voiding Skin/Breast Denies breast mass, Denies breast pain and Denies breast skin changes Exam Const General: cooperative, no acute distress and well developed Nutritional Appearance: average body habitus Orientation: oriented x3 Chest Chest palpation inspection: abnormal inspection of the chest Breast inspection: normal inspection of the breasts Breast palpation: normal palpation of the breasts, normal palpation of the axillae and no axillary lymphadenopathy GI Palpation: soft, no masses and nontender General: bladder normal to palpation External Female Exam: normal external appearance and normal appearance of the urethra Urethra: normal appearance of the urethra Speculum Exam - Vagina: normal appearance of the vagina and normal vaginal discharge Speculum Exam - Cervix: normal appearance of the cervix Bimanual Exam- Vagina Uterus: normal bimanual exam, uterine size normal, bladder normal to palpation, uterine shape normal, uterine mobility normal and non-tender Bimanual Exam- Adnexa, other: normal adnexae, no masses, normal and non-tender Pelvic Support: normal Coding Level of Care Code No Charge Diagnoses Routine follow-up Z39.2 Assessment and Plan Assessment and Plan (1) Routine follow-up: Plan - Kristin Red NP, PYRIDINE OPERATOR-C: Cervical cancer screenin Contraceptive plans: condoms Complications: none Follow up for annual exams or sooner if indicated. 12/22/20 1041 Date Kristin Red NP PYRIDINE OPERATOR-C Cosigner Signature: Date (if applicable) CC: Normal [facility] CBC W/Diff, Automatedon 11-03 Absolute Lymph 1.42 X10 3/uL Normal 0.83-4.51 [facility] Comment on above: Performed By: #### L 100.0100, BTS ####[facility] [address] [place], [address] Absolute Neut 8.3 X10 3/uL High 2.0-7.7 [facility] Comment on above: Performed By: #### L 100.0100, BTS ####[facility] [address] [place], [address] Basophils/100 WBC (Bld) 0.4 % Normal 0-1 [facility] Comment on above: Performed By: #### L 100.0100, BTS ####[facility] [address] [place], [address] Eosinophils/100 WBC (Bld) 0.4 % Normal 0-5 [facility] Comment on above: Performed By: #### L 100.0100, BTS ####[facility] [address] [place], [address] Erythrocyte distribution width (RBC) [Ratio] 12.0 % Normal 11.6-14.6 [facility] Comment on above: Performed By: #### L 100.0100, BTS ####[facility] [address] [place], [address] Hematocrit (Bld) [Volume fraction] 39.7 % Normal 37-47 [facility] Comment on above: Performed By: #### L 100.0100, BTS ####[facility] [address] [place], [address] Hemoglobin (Bld) [Mass/Vol] 13.2 g/dL Normal 12.0-15.0 [facility] Comment on above: Performed By: #### L 100.0100, BTS ####[facility] [address] [place], [address] IG% 1.300 High 0.0-0.9 [facility] Comment on above: Result Comment: IG% - Immature Granulocytes (promyelocytes, myelocytes and metamyelocytes) > 1% indicates that a LEFT SHIFT is Present. Performed By: #### L 100.0100, BTS ####[facility] [address] [place], [address] Lymphocytes/100 WBC (Bld) 13.3 % Low 19-41 [facility] Comment on above: Performed By: #### L 100.0100, BTS ####[facility] [address] [place], [address] MCH (RBC) [Entitic mass] 30.9 pg Normal 27.0-32.0 [facility] Comment on above: Performed By: #### L 100.0100, BTS ####[facility] [address] [place], [address] MCHC (RBC) [Mass/Vol] 33.2 g/dL Normal 32-36 [facility] Comment on above: Performed By: #### L 100.0100, BTS ####[facility] [address] [place], [address] MCV (RBC) [Entitic vol] 93.0 fL Normal 81-99 [facility] Comment on above: Performed By: #### L 100.0100, BTS ####[facility] [address] [place], [address] Monocytes/100 WBC (Bld) 7.2 % Normal 0-10 [facility] Comment on above: Performed By: #### L 100.0100, BTS ####[facility] [address] [place], [address] Neutrophils/100 WBC (Bld) 77.4 % High 47-70 [facility] Comment on above: Performed By: #### L 100.0100, BTS ####[facility] [address] [place], [address] Nucleated RBC (Bld) [#/Vol] 0 10*3/uL Normal 0-5 [facility] Comment on above: Performed By: #### L 100.0100, BTS ####[facility] [address] [place], [address] Platelet mean volume (Bld) [Entitic vol] 11.0 fL Normal 6.2-12.0 [facility] Comment on above: Performed By: #### L 100.0100, BTS ####[facility] [address] [place], [address] Platelets (Bld) [#/Vol] 213 10*3/uL Normal 150-450 [facility] Comment on above: Performed By: #### L 100.0100, BTS ####[facility] [address] [place], [address] RBC (Bld) [#/Vol] 4.27 10*6/uL Normal 4.2-5.4 [facility] Comment on above: Performed By: #### L 100.0100, BTS ####[facility] [address] [place], [address] RDW SD 41.1 fl Normal 35.1-43.9 [facility] Comment on above: Performed By: #### L 100.0100, BTS ####[facility] [address] [place], [address] WBC (Bld) [#/Vol] 10.7 10*3/uL Normal 4.4-11.0 [facility] Comment on above: Performed By: #### L 100.0100, BTS ####[facility] [address] [place], [address] COVID 19 AG RAPID (RN [facility] Augie)on 11-17-2020 SARS-CoV-2 (COVID-19) RNA MILIND+probe Ql (Unsp spec) *Negative results from patients with symptom onset beyond five days should be treated as presumptive and confirmed by a molecular assay if clinically necessary. Negative results should not be used as the sole basis for treatment or for patient management. COVID 19 AG RAPID (RN COLLECT) *Positive results do not differentiate between SARS-CoV and SARS-CoV-2. If differentation of the specific SARS virus is desired an additional sample and an additional order is required. COVID 19 AG RAPID (RN COLLECT) * This test has not been FDA cleared or approved; the test has been authorized by FDA under an Emergency Use Authorization (EAU) for use by laboratories certified under CLIA that meet the requirements to perform moderate, high, or waived complexity tests. COVID 19 AG RAPID (RN COLLECT) Normal Reference Range: Negative SARS-CoV-2 (COVID 19) Negative RAPID METHOD Quidel Tammy Analyzer WIL, lateral flow immunofluorescent Normal [facility] Comment on above: Performed By: #### M 100.505 ####[facility] [address] [facility] [place], [address] Discharge Instructionon 11-03 Discharge Instruction [facility] Medical Records Department [address] [place] [address] Instructions for Home/Discharge Instructions 11/17/20 1250 MR#: [id number] Acct: [id number] Name: ISABEL ACHARYA Rep #: [id number] : 1995 25 From: Millie Watkins MD PCP: Care Physician,No Primary Status:ADM IN Discharge Instructions Diet Discharge Diet: No restrictions Activity Discharge Activity: Return to Normal Activity, May Not Drive (while taking narcotic pain medications.) and May Shower May resume sexual activity in: 4-6 weeks Dressing / Incision Call your doctor if your incision/area has: Continuous Slow Oozing, Sudden Increased Bleeding, Increased Pain/ Swelling, Increased Redness and Foul Smelling Discharge Follow Up Care When: Call to make an appointment with your doctor in 6 weeks. If you had elevated Blood Pressure or 4th degree laceration you will need to be seen in 2 weeks. Test Results: Test results from this visit will be discussed in further detail at your follow-up appointment, if applicable. Discharge Plan Admission Admit Date/Time: 11/17/20 07:45 Primary Reason for Your Visit: labor Attending Provider: Millie Watkins Primary Care Provider: Care Physician,No Primary Consulting Providers: Selin Ferrari Instructions Patient Instructions: After a Vaginal Discharge Orders/Prescriptions Prescriptions: New ibuprofen 800 mg tablet 800 mg PO Q8H PRN (Reason: pain) Qty: 30 RF: 1 Continued prenat.vits,taylor,min-ir on-folic Tablet 1 tab PO DAILY RF: 0 Referrals / Follow Up: Care Physician,No Primary [Primary Care Provider] - 11/17/20 1255 Millie Watkins MD CC: Dr. Selin Ferrari MD; No Primary Care Physician Signed [facility] H AND P Exam - OB/GYNon 11-03 H&P Exam - PRISON TE[employer]ER [facility] Medical Records Department [address] [place] [address] H P Exam - PRISON TEACHER 11/17/20 0835 MR#: [id number] Acct: [id number] Name: ISABEL ACHARYA Rep #: [id number] : 1995 25 From: Millie Watkins MD PCP: Care Physician,No Primary Status:ADM IN Location: [place] [address] HPI - General General Date of Admission: 11/17/20 HPI Narrative ISABEL ACHARYA, is a 25 F at 39/4 who presents in active labor Maternal Data Information JOHN Calculator Estimated Delivery Date Method Current WG Current Estimate 11/20/20 LMP (Certain) 39w 4d Other Estimates 11/17/20 Ultrasound #1 40w 0d PFSH PFSH Home Medications prenat.vits,taylor,min-ir on-folic 1 tab PO DAILY 02/03/19 [History Last Taken 11/15/20 21:00] Allergy/AdvReac Type Severity Reaction Status Date / Time No Known Allergies Allergy Verified 11/17/20 08:25 Family History Mother Heart disease Father Heart disease Surgical History S/P ACL repair Social History adopted: No household members: family housing: house number of children: 1 current occupational status: employed Smoking Status: Never smoker second hand exposure: No alcohol intake: never substance use type: does not use well-balanced diet: daily or most days caffeine: No what type of physical activity do you participate in: none seatbelt use: always do you feel safe at home: Yes additional social history: - Ramone History 2 Elective abortions Hx Para 1 Spontaneous abortions Hx # Term Pregnancies Ectopic pregnancies Hx # Pregnancies 1 Multiple births # of living children 1 Past Pregnancies Del. Date Name GA/Weeks Outcome Route Bth Weight Infant Gen Labor Lgth Anesthesia Del Locatn Provider FOB 08/02/19 Perfecto 36 live - 6lbs 6oz Male 8 hours epidural [facility] Dr. Selin Ferrari Delivery Date: 08/02/19 IOL Celena Flores Visit Details Expected Delivery Route/Plan Labor Preferences- CB/BF classes: no labor support person: Ramone labor intervention preferences: pain management options preferred: epidural cut cord/dad catch: cord : yes PP control planned: condoms discussed possible routes of delivery and associated risks: [] special requests: [] Plans covid status: non immune, counseled regarding risk of covid in vs vaccination and declined vaccination flu vaccine: decline tdap vaccine: declines rhogam: na LARC form signed: declined movement and labor precautions reviewed. Problem list reviewed and updated with the most current plan of care details and appropriate orders placed. Relevant counseling for the gestational age provided. Continue routine care and follow up unless otherwise noted in visit notes/problem list details OB Flowsheet Initial Weight: Not Recorded Date -???-???-???-???-???-? ??-???-???-???-???-??? -???- EGA Weight BP Urine Prot -???-???-???-???-???-? ??-???-???-???-???-??? -???- Glucose FHR FuHt Pres Dilation -???-???-???-???-???-? ??-???-???-???-???-??? -???- Effaced St Visit Note 04/12/20 -???-???-???-???-???-? ??-???-???-???-???-??? -???- 8w 2d 164 lb 128/76 -???-???-???-???-???-? ??-???-???-???-???-??? -???- 175 -???-???-???-???-???-? ??-???-???-???-???-??? -???- GP - CRL 19m m consistent with LMP 05/10/20 -???-???-???-???-???-? ??-???-???-???-???-??? -???- 12w 2d 165 lb 4 oz 122/80 Negative -???-???-???-???-???-? ??-???-???-???-???-??? -???- Negative 160 -???-???-???-???-???-? ??-???-???-???-???-??? -???- GP - no cranberry bog supervisor mping or bleeding. PRR. Awaiting NIPT results. Anatomy scan ordered. 06/09/20 -???-???-???-???-???-? ??-???-???-???-???-??? -???- 16w 4d 168 lb 118/76 Trace -???-???-???-???-???-? ??-???-???-???-???-??? -???- Negative 155 -???-???-???-???-???-? ??-???-???-???-???-??? -???- -No Vb, LO F. Reviewed NIPT LR male. Anatomy 06/2907/05/20 -???-???-???-???-???-? ??-???-???-???-???-??? -???- 20w 2d 173 lb 130/80 Negative -???-???-???-???-???-? ??-???-???-???-???-??? -???- Negative 145 -???-???-???-???-???-? ??-???-???-???-???-??? -???- GP - no LOF , VB, DFM, ctx. Anatomy . 08/03/20 -???-???-???-???-???-? ??-???-???-???-???-??? -???- 24w 3d 179 lb 118/70 Trace -???-???-???-???-???-? ??-???-???-???-???-??? -???- Negative 149 -???-???-???-???-???-? ??-???-???-???-???-??? -???- -No VB, LO F. Good FM. 08/30/20 -???-???-???-???-???-? ??-???-???-???-???-??? -???- 28w 2d 182 lb 122/77 Negative -???-???-???-???-???-? ??-???-???-???-???-??? -???- Negative 145 28 -???-???-???-???-???-? ??-???-???-???-???-??? -???- (more content not included)... [facility] Operative Reporton Operative Report [facility] Medical Records Department [address] [place] [address] Operative Report 11/17/20 1246 MR#: [id number] Acct: [id number] Name: ISABEL ACHARYA Rep #: [id number] : 1995 25 From: Millie Watkins MD PCP: Care Physician,No Primary Status:ADM IN Location: HR144-3 Assessment Plan (1) Active labor at term: (2) Short interval between pregnancies affecting , antepartum: COMMENT: Child 8mo old at [facility] (3) History of oligohydramnios in prior , currently : COMMENT: IoL at 36 weeks in prior , 11/11 US nl (4) Supervision of other normal : COMMENT: PRR JOHN: 11/20/20 Jean Claude López PC: Perfecto Spouse: Ramone (5) : QUALIFIERS: Weeks of gestation: 39 weeks Qualified Code(s): Z3A.39 - 39 weeks gestation of COMMENT: genetic LR, declines carrier and ntd screen. anatomy nl; GBS NEG Maternal Data Information JOHN Calculator Estimated Delivery Date Method Current WG Current Estimate 11/20/20 LMP (Certain) 39w 4d Other Estimates 11/17/20 Ultrasound #1 40w 0d Vaginal Delivery Maternal Presentation Maternal Presentation: Active Labor Maternal Presentation: 25-year-old at 39 weeks gestation admitted in active labor. Patient made cervical change to complete dilation following artificial rupture of membranes Operative Information Date of Procedure: 11/17/20 Pre-Operative Diagnosis: Term , active labor Post-Operative Diagnosis: Same Surgery / Procedure Performed: Spontaneous Vaginal Delivery Type of Anesthesia: Local with 1% Lidocaine Drain: Arellano to straight drain Estimated Blood Loss: 150 cc Findings Description of Procedure: Patient began pushing and delivered the head in the ROSETTA presentation. The head was delivered atraumatically and no nuchal cord was noted. The anterior and posterior shoulders delivered without complication followed by the rest of the and the was placed on the maternal abdomen. Delayed cord clamping was employed for approximately 60 seconds. Cord was clamped and cut and gentle traction was applied to the cord and the placenta delivered spontaneously immediately following it was noted to be intact with three-vessel cord. The perineum and vagina were inspected and a midline first-degree perineal laceration was noted and instilled with 10 cc of 1% lidocaine then repaired in the standard fashion using 3-0 Vicryl rapide suture. EBL was 150 cc. Patient and tolerated delivery well. Presentation: Vertex and ROSETTA Amniotic Membrane Rupture Type: Artificial Amniotic Fluid Description: Clear Placental Delivery Description: Spontaneous Placenta Disposition: [facility] Cord Vessel Description: 3 Vessels Cord Entanglement: None Infant A Gender: Male Delayed Cord Clamping: Yes Post Vaginal Delivery Medications Given After Delivery: IV Pitocin Episiotomy Description: None Laceration: Midline, Perineal Extension/lac and 1st degree Complication Complications: None Admit VTE Documentation VTE Present on Admission: No VTE Mechan Device Prophylaxis: [facility] [place] [facility] Prophylaxis Ordered: No Procedures Urinary/Genital 52xxx-59xxx: 93623 Vaginal Delivery [facility] 11/17/20 1250 Cosigner Signature (if applicable): CC: Dr. Millie Watkins MD; Dr. Selin Ferrari MD; No Primary Care Physician Signed [facility] Type AND Screenon 11-17-2020 Ab SCREEN GEL Negative [facility] Comment on above: Order Comment: Labor Performed By: #### L 100.0100, BTS ####[facility] [id number] [place], [address] ABO and Rh group Nom (Bld) Blood group A Rh(D) positive [facility] Comment on above: Order Comment: Labor Performed By: #### L 100.0100, BTS ####[facility] [id number] [place], [address] English Tutor Office Visit Reporton 11-15-2020 English Tutor Office Visit Report [facility] [address] [place] [address] OFFICE VISIT Date of Service: 11/15/20 MR#: [id number] Acct: [id number] Name: ISABEL ACHARYA Rep #: [id number] : 1995 Provider: Dr. Selin mims MD Age/Sex: 25/F [place] [facility] [place]: Signed Intake Vital Signs 11/15/20 08:13 11/15/20 08:13 Height 5 ft 3 in Weight: 189 lb 6 oz BMI 33.5 29.0 BP 134/78 H Intake Visit Reasons: 39WK OB Floatman Required: No Is patient in pain?: No Allergies No Known Allergies Allergy (Verified 11/15/20 08:12) Medications prenat.vits,taylor,min-ir on-folic 1 tab PO DAILY 02/03/19 [History Confirmed 11/15/20] Last Menstral Period: 02/14/20 Zika: Zika virus screening: Negative : No PFSH PFSH Surgical History S/P ACL repair Family History Mother Heart disease Father Heart disease Social History adopted: No household members: family housing: house number of children: 1 current occupational status: employed Smoking Status: Never smoker second hand exposure: No alcohol intake: never substance use type: does not use well-balanced diet: daily or most days caffeine: No what type of physical activity do you participate in: none seatbelt use: always do you feel safe at home: Yes additional social history: - Ramone Pregancy History 2 Elective abortions Hx Para 1 Spontaneous abortions Hx # Term Pregnancies Ectopic pregnancies Hx # Pregnancies 1 Multiple births # of living children 1 Past Pregnancies Del. Date Name GA/Weeks Outcome Route Bth Weight Infant [facility]19 Perfecto 36 live - 6lbs 6oz Male 8 hours epidural [facility] Dr. Selin Ferrari Delivery Date: 08/02/19 IOL Oligo Celena Faye HPI 39WK OB Details: ISABEL ACHARYA is a 25 year old who presents for routine OB visit. OB Visit JOHN Calculator Estimated Delivery Date Method Current WG Current Estimate 11/20/20 LMP (Certain) 39w 2d Other Estimates 11/17/20 Ultrasound #1 39w 5d Expected Delivery Route/Plan Labor Preferences- CB/BF classes: no labor support person: Ramone labor intervention preferences: pain management options preferred: epidural cut cord/dad catch: cord : yes PP control planned: condoms discussed possible routes of delivery and associated risks: [] special requests: [] Specific Issue/Plans covid status: non immune, counseled regarding risk of covid in vs vaccination and declined vaccination flu vaccine: decline tdap vaccine: declines rhogam: na LARC form signed: declined movement and labor precautions reviewed. Problem list reviewed and updated with the most current plan of care details and appropriate orders placed. Relevant counseling for the gestational age provided. Continue routine care and follow up unless otherwise noted in visit notes/problem list details Initial Weight: Not Recorded Date -???-???-???-???-???-? ??-???-???-???-???-??? -???- EGA Weight BP Urine Prot -???-???-???-???-???-? ??-???-???-???-???-??? -???- Glucose FHR FuHt Pres Dilation -???-???-???-???-???-? ??-???-???-???-???-??? -???- Effaced St Visit Note 04/12/20 -???-???-???-???-???-? ??-???-???-???-???-??? -???- 8w 2d 164 lb 128/76 -???-???-???-???-???-? ??-???-???-???-???-??? -???- 175 -???-???-???-???-???-? ??-???-???-???-???-??? -???- GP - CRL 19m m consistent with LMP 05/10/20 -???-???-???-???-???-? ??-???-???-???-???-??? -???- 12w 2d 165 lb 4 oz 122/80 Negative -???-???-???-???-???-? ??-???-???-???-???-??? -???- Negative 160 -???-???-???-???-???-? ??-???-???-???-???-??? -???- GP - no cranberry bog supervisor mping or bleeding. PRR. Awaiting NIPT results. Anatomy scan ordered. 06/09/20 -???-???-???-???-???-? ??-???-???-???-???-??? -???- 16w 4d 168 lb 118/76 Trace -???-???-???-???-???-? ??-???-???-???-???-??? -???- Negative 155 -???-???-???-???-???-? ??-???-???-???-???-??? -???- -No Vb, LUDWIN F. Reviewed NIPT LR male. Anatomy US 06/2907/05/20 -???-???-???-???-???-? ??-???-???-???-???-??? -???- 20w 2d 173 lb 130/80 Negative -???-???-???-???-???-? ??-???-???-???-???-??? -???- Negative 145 -???-???-???-???-???-? ??-???-???-???-???-??? -???- GP - no LOF , VB, DFM, ctx. Anatomy nl. 08/03/20 -???-???-???-???-???-? ??-???-???-???-???-??? -???- 24w 3d 179 lb 118/70 Trace -???-???-???-???-???-? ??-???-???-???-???-??? -???- Negative 149 -???-???-???-???-???-? ??-???-???-???-???-??? -???- -No VB, LO F. Good FM. 08/30/20 (more content not included)... [facility] OB Limited With Biometricson 11-11-2020 OB Limited With Biometrics [facility] Imaging Services [address] [place] [address] OB Limited With Biometrics MR#: [id number] Acct: [id number] Name: ISABEL ACHARYA Rep #: [id number] : 1995 F 25 From: Sumanth hart MD PCP: Care Physician,No Primary Status: [facility] Study: OB Limited With Biometrics Date of Exam: 11/11 Exam# [id number] Ordering Dr: Selin Ferrari STUDY: SECOND AND THIRD TRIMESTER OBSTETRICAL ULTRASOUND - LIMITED REASON FOR EXAM: Female, 25 years old low fundal height LMP: 02/14/2020. PRIOR ULTRASOUND: Comparison is made with prior examination of 10/25/2020. TECHNIQUE: Transabdominal TECHNICAL QUALITY: Adequate. FINDINGS: There is a single intrauterine fetus. The fetus is in a cephalic presentation. There is demonstrated cardiac activity with a heart rate of 140 bpm. There is a normal amniotic fluid volume. The largest amniotic fluid pocket measures 5.8 cm. The amniotic fluid index (ELMIRA) is 12 cm. The placenta is anterior in location and is not low lying. There are Grade 2 placental changes. The cervix was not measured due to the head positioning. BIOMETRY: BPD: 8.41 cm: 33 weeks, 6 days HC: 32.17: 36 weeks, 1 days AC: 34.5 cm: 38 weeks, 2 days FL: 7.1 cm: 36 weeks, 2 days Age by LMP: 38 weeks, 5 days. JOHN by LMP: 11/20/2020. age by prior US: 38 weeks, 5 days. JOHN by prior US: 11/20/2020. age by current US: 36 weeks, 2 days. JOHN by current US: 12/07/2020. Estimated weight: 3132 grams, +/- 74 grams, 29.2 percentile. US/OB Limited With Biometrics IMPRESSION: Single live intrauterine gestation with a mean gestational age of 38 weeks and 5 days. The measurements obtained today fall within the normal expected range. Electronically Signed: Sumanth Zhang MD at 15:20 EDT , Service support , CC: Dr. Selin Ferrari MD; No Primary Care Physician Integration Architect: Signed [facility] English Tutor Office Visit Reporton 11-11-2020 English Tutor Office Visit Report [facility] [address] [place] [address] OFFICE VISIT Date of Service: 11/11/20 MR#: [id number] Acct: [id number] Name: ISABEL ACHARYA Rep #: [id number] : 1995 Provider: Dr. Selin mims MD Age/Sex: 25/F [place] [facility] [place]: Signed Intake Vital Signs 11/11/20 08:20 Height 5 ft 3 in Weight: 189 lb 6 oz BMI 33.5 BP 124/82 H Intake Visit Reasons: 38WK OB Floatman Required: No Is patient in pain?: No Allergies No Known Allergies Allergy (Verified 11/11/20 08:19) Medications prenat.vits,taylor,min-ir on-folic 1 tab PO DAILY 02/03/19 [History Confirmed 11/11/20] Last Menstral Period: 02/14/20 Zika: Zika virus screening: Negative : No PFSH PFSH Surgical History S/P ACL repair Family History Mother Heart disease Father Heart disease Social History adopted: No household members: family housing: house number of children: 1 current occupational status: employed Smoking Status: Never smoker second hand exposure: No alcohol intake: never substance use type: does not use well-balanced diet: daily or most days caffeine: No what type of physical activity do you participate in: none seatbelt use: always do you feel safe at home: Yes additional social history: - Ramone Pregancy History 2 Elective abortions Hx Para 1 Spontaneous abortions Hx # Term Pregnancies Ectopic pregnancies Hx # Pregnancies 1 Multiple births # of living children 1 Past Pregnancies Del. Date Name GA/Weeks Outcome Route Bth Weight Infant Gen Labor Lgth Anesthesia Del Locatn Provider FOB 08/02/19 Perfecto 36 live - 6lbs 6oz Male [address] Selin Ferrari Delivery Date: 08/02/19 IOL Oligo Celena Faye HPI 38WK OB Details: ISABEL ACHARYA is a 25 year old who presents for routine OB visit. OB Visit JOHN Calculator Estimated Delivery Date Method Current WG Current Estimate 11/20/20 LMP (Certain) 38w 5d Other Estimates 11/17/20 Ultrasound #1 39w 1d Expected Delivery Route/Plan Labor Preferences- CB/BF classes: no labor support person: Ramone labor intervention preferences: pain management options preferred: epidural cut cord/dad catch: cord : yes PP control planned: condoms discussed possible routes of delivery and associated risks: [] special requests: [] Specific Issue/Plans covid status: non immune flu vaccine: decline tdap vaccine: declines rhogam: na LARC form signed: declined movement and labor precautions reviewed. Problem list reviewed and updated with the most current plan of care details and appropriate orders placed. Relevant counseling for the gestational age provided. Continue routine care and follow up unless otherwise noted in visit notes/problem list details Initial Weight: Not Recorded Date -???-???-???-???-???-? ??-???-???-???-???-??? -???- EGA Weight BP Urine Prot -???-???-???-???-???-? ??-???-???-???-???-??? -???- Glucose FHR FuHt Pres Dilation -???-???-???-???-???-? ??-???-???-???-???-??? -???- Effaced St Visit Note 04/12/20 -???-???-???-???-???-? ??-???-???-???-???-??? -???- 8w 2d 164 lb 128/76 -???-???-???-???-???-? ??-???-???-???-???-??? -???- 175 -???-???-???-???-???-? ??-???-???-???-???-??? -???- GP - CRL 19m m consistent with LMP 05/10/20 -???-???-???-???-???-? ??-???-???-???-???-??? -???- 12w 2d 165 lb 4 oz 122/80 Negative -???-???-???-???-???-? ??-???-???-???-???-??? -???- Negative 160 -???-???-???-???-???-? ??-???-???-???-???-??? -???- GP - no cranberry bog supervisor mping or bleeding. PRR. Awaiting NIPT results. Anatomy scan ordered. 06/09/20 -???-???-???-???-???-? ??-???-???-???-???-??? -???- 16w 4d 168 lb 118/76 Trace -???-???-???-???-???-? ??-???-???-???-???-??? -???- Negative 155 -???-???-???-???-???-? ??-???-???-???-???-??? -???- MH-No LUDWIN Del Rosario. Reviewed NIPT LR male. Anatomy US 06/2907/05/20 -???-???-???-???-???-? ??-???-???-???-???-??? -???- 20w 2d 173 lb 130/80 Negative -???-???-???-???-???-? ??-???-???-???-???-??? -???- Negative 145 -???-???-???-???-???-? ??-???-???-???-???-??? -???- GP - no LOF , VB, DFM, ctx. Anatomy nl. 08/03/20 -???-???-???-???-???-? ??-???-???-???-???-??? -???- 24w 3d 179 lb 118/70 Trace -???-???-???-???-???-? ??-???-???-???-???-??? -???- Negative 149 -???-???-???-???-???-? ??-???-???-???-???-??? -???- MH-No VB, LO F. Good FM. 08/30/20 -???-???-???-???-???-? ??-???-???-???-???-??? -???- 28w 2d 182 lb 122/77 Negative -???-???-???-???-???-? ??-? (more content not included)... [facility] English Tutor Office Visit Reporton 11-01-2020 English Tutor Office Visit Report [facility] [address] [place] [address] OFFICE VISIT Date of Service: 11/01/20 MR#: [id number] Acct: [id number] Name: PATRIZIAISABEL LILLY Rep #: : 1995 Provider: Dr. Millie segovia MD Age/Sex: 25/F [place] [facility] [place] Signed Intake Vital Signs 11/01/20 08:25 11/01/20 08:25 Height 5 ft 3 in Weight: 188 lb BMI 33.3 29.0 BP 130/88 H Intake Visit Reasons: 37WK OB Floatman Required: No Is patient in pain?: No Allergies No Known Allergies Allergy (Verified 11/01/20 08:25) Medications prenat.vits,taylor,min-ir on-folic 1 tab PO DAILY 02/03/19 [History Confirmed 11/01/20] Last Menstral Period: 02/14/20 Zika: Zika virus screening: Negative : No PFSH PFSH Surgical History S/P ACL repair Family History Mother Heart disease Father Heart disease Social History adopted: No household members: family housing: house number of children: 1 current occupational status: employed Smoking Status: Never smoker second hand exposure: No alcohol intake: never substance use type: does not use well-balanced diet: daily or most days caffeine: No what type of physical activity do you participate in: none seatbelt use: always do you feel safe at home: Yes additional social history: - Ramone Pregancy History 2 Elective abortions Hx Para 1 Spontaneous abortions Hx # Term Pregnancies Ectopic pregnancies Hx # Pregnancies 1 Multiple births # of living children 1 Past Pregnancies Del. Date Name GA/Weeks Outcome Route Bth Weight Gen Labor Lgth Anesthesia Del Locatn Provider FOB 08/02/19 Perfecto 36 live - 6lbs 6oz Male 8 hours epidural [facility] Dr. Selin Ferrari Delivery Date: 08/02/19 IOL Celena Flores HPI 37WK OB Details: ISABEL ACHARYA is a 25 year old who presents for routine OB visit. OB Visit JOHN Calculator Estimated Delivery Date Method Current WG Current Estimate 11/20/20 LMP (Certain) 37w 2d Other Estimates 11/17/20 Ultrasound #1 37w 5d Expected Delivery Route/Plan Labor Preferences- CB/BF classes: no labor support person: Ramone labor intervention preferences: pain management options preferred: epidural cut cord/dad catch: cord : yes PP control planned: condoms discussed possible routes of delivery and associated risks: [] special requests: [] Specific Issue/Plans covid status: non immune flu vaccine: decline tdap vaccine: declines rhogam: na LARC form signed: declined movement and labor precautions reviewed. Problem list reviewed and updated with the most current plan of care details and appropriate orders placed. Relevant counseling for the gestational age provided. Continue routine care and follow up unless otherwise noted in visit notes/problem list details Initial Weight: Not Recorded Date -???-???-???-???-???-? ??-???-???-???-???-??? -???- EGA Weight BP Urine Prot -???-???-???-???-???-? ??-???-???-???-???-??? -???- Glucose FHR FuHt Pres Dilation -???-???-???-???-???-? ??-???-???-???-???-??? -???- Effaced St Visit Note 04/12/20 -???-???-???-???-???-? ??-???-???-???-???-??? -???- 8w 2d 164 lb 128/76 -???-???-???-???-???-? ??-???-???-???-???-??? -???- 175 -???-???-???-???-???-? ??-???-???-???-???-??? -???- GP - CRL 19m m consistent with LMP 05/10/20 -???-???-???-???-???-? ??-???-???-???-???-??? -???- 12w 2d 165 lb 4 oz 122/80 Negative -???-???-???-???-???-? ??-???-???-???-???-??? -???- Negative 160 -???-???-???-???-???-? ??-???-???-???-???-??? -???- GP - no cranberry bog supervisor mping or bleeding. PRR. Awaiting NIPT results. Anatomy scan ordered. 06/09/20 -???-???-???-???-???-? ??-???-???-???-???-??? -???- 16w 4d 168 lb 118/76 Trace -???-???-???-???-???-? ??-???-???-???-???-??? -???- Negative 155 -???-???-???-???-???-? ??-???-???-???-???-??? -???- MH-No Vb, LO F. Reviewed NIPT LR male. Anatomy US 06/2907/05/20 -???-???-???-???-???-? ??-???-???-???-???-??? -???- 20w 2d 173 lb 130/80 Negative -???-???-???-???-???-? ??-???-???-???-???-??? -???- Negative 145 -???-???-???-???-???-? ??-???-???-???-???-??? -???- GP - no LOF , VB, DFM, ctx. Anatomy nl. 08/03/20 -???-???-???-???-???-? ??-???-???-???-???-??? -???- 24w 3d 179 lb 118/70 Trace -???-???-???-???-???-? ??-???-???-???-???-??? -???- Negative 149 -???-???-???-???-???-? ??-???-???-???-???-??? -???- MH-No VB, LO F. Good FM. 08/30/20 -???-???-???-???-???-? ??-???-???-???-???-??? -???- 28w 2d 182 lb 122/77 Negative -???-???-?? (more content not included)... [facility] Rule out Beta Strep (Grp. B) on 10-28-2020 DONG Group B Beta Streptococcus is not isolated. [facility] Comment on above: Performed By: #### M 100.4392 #### [facility] [address] [place], [place], [id number] Biophysical Prof W/O Non Str eson 10-25-2020 Biophysical Prof W/O Non Stres [facility] Imaging Services [address] [place] [address] Biophysical Prof W/O Non Stres MR#: [id number] Acct: [id number] Name: ISABEL ACHARYA Rep #: [id number] : 1995 F 25 From: Sumanth hart MD PCP: Care Physician,No Primary Status: REG CLI Study: Biophysical Prof W/O Non Stres Date of Exam: 0 10/25/20 Exam# [id number] Ordering Dr: Kristin Red NP, NP STUDY: OBSTETRICAL ULTRASOUND - BIOPHYSICAL PROFILE REASON FOR EXAM: Female, 25 years old 36 weeks -- PRIOR HX OF OLIGO LMP: 02/14/2020. PRIOR ULTRASOUND: Comparison is made with prior examination dated 06/29/2020. TECHNIQUE: Transabdominal TECHNICAL QUALITY: Adequate. FINDINGS: There is a single intrauterine fetus. The fetus is in a cephalic presentation. There is demonstrated cardiac activity with a heart rate of 141 bpm. There is a normal amniotic fluid volume. The largest amniotic fluid pocket measures 5.3 cm. The amniotic fluid index (ELMIRA) is 11 cm. The placenta is anterior in location and is not low lying. There are Grade 2 placental changes. Age by LMP: 36 weeks, 2 days. JOHN by LMP: 11/20/2020. age by prior US: 36 weeks, 2 days. JOHN by prior US: 11/20/2020. BIOPHYSICAL PROFILE: Breathing Movements (FBM): 2 Gross Body Movements (GBM): 2 Tone (FT): 2 Amniotic Fluid Volume (AFV): 2 TOTAL SCORE: 8 / 8 US/Biophysical Prof W/O Tabby Crain IMPRESSION: Normal biophysical profile of 10/10. Electronically Signed: Sumanth Zhang MD at 10:26 EDT , Service support , CC: BEAU Red; No Primary Care Physician Integration Architect: Signed [facility] English Tutor Office Visit Reporton 10-25-2020 English Tutor Office Visit Report [facility] [address] [place] [address] OFFICE VISIT Date of Service: 10/25/20 MR#: [id number] Acct: [id number] Name: ISABEL ACHARYA Rep #: [id number] : 1995 Provider: Dr. Selin mims MD Age/Sex: 25/F [place] [facility] [place] Signed Intake Vital Signs 10/25/20 08:10 10/25/20 08:11 Height 5 ft 3 in Weight: 187 lb BMI 33.1 29.0 BP 120/78 Intake Visit Reasons: 36WK OB Chief Complaint: est ob Floatman Required: No Is patient in pain?: No Allergies No Known Allergies Allergy (Verified 10/11/20 08:36) Medications prenat.vits,taylor,min-ir on-folic 1 tab PO DAILY 02/03/19 [History Confirmed 10/25/20] Last Menstral Period: 02/14/20 Zika: Zika virus screening: Negative : No PFSH PFSH Surgical History S/P ACL repair Family History Mother Heart disease Father Heart disease Social History adopted: No household members: family housing: house number of children: 1 current occupational status: employed Smoking Status: Never smoker second hand exposure: No alcohol intake: never substance use type: does not use well-balanced diet: daily or most days caffeine: No what type of physical activity do you participate in: none seatbelt use: always do you feel safe at home: Yes additional social history: - Ramone Pregancy History 2 Elective abortions Hx Para 1 Spontaneous abortions Hx # Term Pregnancies Ectopic pregnancies Hx # Pregnancies 1 Multiple births # of living children 1 Past Pregnancies Del. Date Name GA/Weeks Outcome Route Bth Weight Gen Labor Lgth Anesthesia Del Locatn Provider FOB 08/02/19 Perfecto 36 live - 6lbs 6oz Male 8 hours epidural [facility] Dr. Selin Ferrari Delivery Date: 08/02/19 IOL Oligo Neyda,Celena HPI 36WK OB Details: ISABEL ACHARYA is a 25 year old who presents for routine OB visit. OB Visit JOHN Calculator Estimated Delivery Date Method Current WG Current Estimate 11/20/20 LMP (Certain) 36w 2d Other Estimates 11/17/20 Ultrasound #1 36w 5d Expected Delivery Route/Plan Labor Preferences- CB/BF classes: no labor support person: Ramone labor intervention preferences: pain management options preferred: epidural cut cord/dad catch: cord : yes PP control planned: condoms discussed possible routes of delivery and associated risks: [] special requests: [] Specific Issue/Plans covid status: non immune flu vaccine: decline tdap vaccine: declines rhogam: na LARC form signed: declined movement and labor precautions reviewed. Problem list reviewed and updated with the most current plan of care details and appropriate orders placed. Relevant counseling for the gestational age provided. Continue routine care and follow up unless otherwise noted in visit notes/problem list details Initial Weight: Not Recorded Date -???-???-???-???-???-? ??-???-???-???-???-??? -???- EGA Weight BP Urine Prot -???-???-???-???-???-? ??-???-???-???-???-??? -???- Glucose FHR FuHt Pres Dilation -???-???-???-???-???-? ??-???-???-???-???-??? -???- Effaced St Visit Note 04/12/20 -???-???-???-???-???-? ??-???-???-???-???-??? -???- 8w 2d 164 lb 128/76 -???-???-???-???-???-? ??-???-???-???-???-??? -???- 175 -???-???-???-???-???-? ??-???-???-???-???-??? -???- GP - CRL 19m m consistent with LMP 05/10/20 -???-???-???-???-???-? ??-???-???-???-???-??? -???- 12w 2d 165 lb 4 oz 122/80 Negative -???-???-???-???-???-? ??-???-???-???-???-??? -???- Negative 160 -???-???-???-???-???-? ??-???-???-???-???-??? -???- GP - no cranberry bog supervisor mping or bleeding. PRR. Awaiting NIPT results. Anatomy scan ordered. 06/09/20 -???-???-???-???-???-? ??-???-???-???-???-??? -???- 16w 4d 168 lb 118/76 Trace -???-???-???-???-???-? ??-???-???-???-???-??? -???- Negative 155 -???-???-???-???-???-? ??-???-???-???-???-??? -???- MH-No Vb, LO F. Reviewed NIPT LR male. Anatomy US 06/2907/05/20 -???-???-???-???-???-? ??-???-???-???-???-??? -???- 20w 2d 173 lb 130/80 Negative -???-???-???-???-???-? ??-???-???-???-???-??? -???- Negative 145 -???-???-???-???-???-? ??-???-???-???-???-??? -???- GP - no LOF , VB, DFM, ctx. Anatomy nl. 08/03/20 -???-???-???-???-???-? ??-???-???-???-???-??? -???- 24w 3d 179 lb 118/70 Trace -???-???-???-???-???-? ??-???-???-???-???-??? -???- Negative 149 -???-???-???-???-???-? ??-???-???-???-???-??? -???- MH-No VB, LO F. Good FM. 08/30/20 -???-???-???-???-???-? ??-???-???-???-???-??? -???- 28w 2d 182 l (more content not included)... [facility] English Tutor Office Visit Reporton 10-11-2020 English Tutor Office Visit Report [facility] [address] [place] [address] OFFICE VISIT Date of Service: 10/11/20 MR#: [id number] Acct: [id number] Name: ISABEL ACHARYA Rep #: [id number] : 1995 Provider: BEAU ramirez Age/Sex: 25/F [place] [facility] [place] Signed Intake Vital Signs 10/11/20 08:35 10/11/20 08:40 Height 5 ft 3 in Weight: 186 lb 2 oz BMI 32.9 32.8 BP 120/68 Intake Visit Reasons: 34WK OB Allergies No Known Allergies Allergy (Verified 10/11/20 08:36) Medications prenat.vits,taylor,min-ir on-folic 1 tab PO DAILY 02/03/19 [History Confirmed 10/11/20] Last Menstral Period: 02/14/20 Zika: Zika virus screening: Negative : No PFSH PFSH Surgical History S/P ACL repair Family History Mother Heart disease Father Heart disease Social History adopted: No household members: family housing: house number of children: 1 current occupational status: employed Smoking Status: Never smoker second hand exposure: No alcohol intake: never substance use type: does not use well-balanced diet: daily or most days caffeine: No what type of physical activity do you participate in: none seatbelt use: always do you feel safe at home: Yes additional social history: - Ramone Pregancy History 2 Elective abortions Hx Para 1 Spontaneous abortions Hx # Term Pregnancies Ectopic pregnancies Hx # Pregnancies 1 Multiple births # of living children 1 Past Pregnancies Del. Date Name GA/Weeks Outcome Route Bth Weight Gen Labor Lgth Anesthesia Del Locatn Provider FOB 08/02/19 Perfecto 36 live - 6lbs 6oz Male 8 hours epidural [facility] Dr. Selin Ferrari Delivery Date: 08/02/19 IOL Oligo Neyda,Celena HPI 34WK OB Details: ISABEL ACHARYA is a 25 year old who presents for routine OB visit. OB Visit JOHN Calculator Estimated Delivery Date Method Current WG Current Estimate 11/20/20 LMP (Certain) 34w 2d Other Estimates 11/17/20 Ultrasound #1 34w 5d Expected Delivery Route/Plan Labor Preferences- CB/BF classes: no labor support person: Ramone labor intervention preferences: pain management options preferred: epidural cut cord/dad catch: cord : yes PP control planned: condoms discussed possible routes of delivery and associated risks: [] special requests: [] Specific Issue/Plans covid status: non immune flu vaccine: decline tdap vaccine: declines rhogam: na LARC form signed: declined movement and labor precautions reviewed. Problem list reviewed and updated with the most current plan of care details and appropriate orders placed. Relevant counseling for the gestational age provided. Continue routine care and follow up unless otherwise noted in visit notes/problem list details Initial Weight: Not Recorded Date -???-???-???-???-???-? ??-???-???-???-???-??? -???- EGA Weight BP Urine Prot -???-???-???-???-???-? ??-???-???-???-???-??? -???- Glucose FHR FuHt Pres Dilation -???-???-???-???-???-? ??-???-???-???-???-??? -???- Effaced St Visit Note 04/12/20 -???-???-???-???-???-? ??-???-???-???-???-??? -???- 8w 2d 164 lb 128/76 -???-???-???-???-???-? ??-???-???-???-???-??? -???- 175 -???-???-???-???-???-? ??-???-???-???-???-??? -???- GP - CRL 19m m consistent with LMP 05/10/20 -???-???-???-???-???-? ??-???-???-???-???-??? -???- 12w 2d 165 lb 4 oz 122/80 Negative -???-???-???-???-???-? ??-???-???-???-???-??? -???- Negative 160 -???-???-???-???-???-? ??-???-???-???-???-??? -???- GP - no cranberry bog supervisor mping or bleeding. PRR. Awaiting NIPT results. Anatomy scan ordered. 06/09/20 -???-???-???-???-???-? ??-???-???-???-???-??? -???- 16w 4d 168 lb 118/76 Trace -???-???-???-???-???-? ??-???-???-???-???-??? -???- Negative 155 -???-???-???-???-???-? ??-???-???-???-???-??? -???- MH-No Vb, LO F. Reviewed NIPT LR male. Anatomy US 06/2907/05/20 -???-???-???-???-???-? ??-???-???-???-???-??? -???- 20w 2d 173 lb 130/80 Negative -???-???-???-???-???-? ??-???-???-???-???-??? -???- Negative 145 -???-???-???-???-???-? ??-???-???-???-???-??? -???- GP - no LOF , VB, DFM, ctx. Anatomy nl. 08/03/20 -???-???-???-???-???-? ??-???-???-???-???-??? -???- 24w 3d 179 lb 118/70 Trace -???-???-???-???-???-? ??-???-???-???-???-??? -???- Negative 149 -???-???-???-???-???-? ??-???-???-???-???-??? -???- MH-No VB, LO F. Good FM. 08/30/20 -???-???-???-???-???-? ??-???-???-???-???-??? -???- 28w 2d 182 lb 122/77 Negative -???-???-???-???-???-? ??-???-???-???-???-??? -???- Negative 145 28 (more content not included)... [facility] English Tutor Office Visit Reporton 09-27-2020 English Tutor Office Visit Report [facility] [address] [place] [address] OFFICE VISIT Date of Service: 09/27/20 MR#: [id number] Acct: [id number] Name: ISABEL ACHARYA Rep #: [id number] : 1995 Provider: Dr. Millie segovia MD Age/Sex: 25/F [place] [facility] [place] Status: Signed Intake Vital Signs 09/27/20 08:40 Height 5 ft 3 in Weight: 185 lb 6 oz BMI 32.8 BP 136/74 H Intake Visit Reasons: 32WK OB Floatman Required: No Is patient in pain?: No Allergies No Known Allergies Allergy (Verified 09/27/20 08:39) Medications prenat.vits,taylor,min-ir on-folic 1 tab PO DAILY 02/03/19 [History Confirmed 09/27/20] Last Menstral Period: 02/14/20 Zika: Zika virus screening: Negative : No PFSH PFSH Surgical History S/P ACL repair Family History Mother Heart disease Father Heart disease Social History adopted: No household members: family housing: house number of children: 1 current occupational status: employed Smoking Status: Never smoker second hand exposure: No alcohol intake: never substance use type: does not use well-balanced diet: daily or most days caffeine: No what type of physical activity do you participate in: none seatbelt use: always do you feel safe at home: Yes additional social history: - Ramone Pregancy History 2 Elective abortions Hx Para 1 Spontaneous abortions Hx # Term Pregnancies Ectopic pregnancies Hx # Pregnancies 1 Multiple births # of living children 1 Past Pregnancies Del. Date Name GA/Weeks Outcome Route Bth Weight Gen Labor Lgth Anesthesia [facility] Provider FOB 08/02/19 Perfecto 36 live - 6lbs 6oz Male 8 hours epidural [facility] Dr. Selin Ferrari Delivery Date: 08/02/19 IOL Oligo Celena Faye HPI 32WK OB Details: ISABEL ACHARYA is a 25 year old who presents for routine OB visit. OB Visit JOHN Calculator Estimated Delivery Date Method Current WG Current Estimate 11/20/20 LMP (Certain) 32w 2d Other Estimates 11/17/20 Ultrasound #1 32w 5d Expected Delivery Route/Plan Labor Preferences- CB/BF classes: [] labor support person: [] labor intervention preferences: [] pain management options preferred: [] cut cord/dad catch: [] : [] PP control planned: [] discussed possible routes of delivery and associated risks: [] special requests: [] Specific Issue/Plans covid status: non immune flu vaccine: decline tdap vaccine: declines rhogam: na LARC form signed: declined movement and labor precautions reviewed. Problem list reviewed and updated with the most current plan of care details and appropriate orders placed. Relevant counseling for the gestational age provided. Continue routine care and follow up unless otherwise noted in visit notes/problem list details Initial Weight: Not Recorded Date -???-???-???-???-???-? ??-???-???-???-???-??? -???- EGA Weight BP Urine Prot -???-???-???-???-???-? ??-???-???-???-???-??? -???- Glucose FHR FuHt Pres Dilation -???-???-???-???-???-? ??-???-???-???-???-??? -???- Effaced St Visit Note 04/12/20 -???-???-???-???-???-? ??-???-???-???-???-??? -???- 8w 2d 164 lb 128/76 -???-???-???-???-???-? ??-???-???-???-???-??? -???- 175 -???-???-???-???-???-? ??-???-???-???-???-??? -???- GP - CRL 19m m consistent with LMP 05/10/20 -???-???-???-???-???-? ??-???-???-???-???-??? -???- 12w 2d 165 lb 4 oz 122/80 Negative -???-???-???-???-???-? ??-???-???-???-???-??? -???- Negative 160 -???-???-???-???-???-? ??-???-???-???-???-??? -???- GP - no cranberry bog supervisor mping or bleeding. PRR. Awaiting NIPT results. Anatomy scan ordered. 06/09/20 -???-???-???-???-???-? ??-???-???-???-???-??? -???- 16w 4d 168 lb 118/76 Trace -???-???-???-???-???-? ??-???-???-???-???-??? -???- Negative 155 -???-???-???-???-???-? ??-???-???-???-???-??? -???- MH-No Vb, LO F. Reviewed NIPT LR male. Anatomy US 06/2907/05/20 -???-???-???-???-???-? ??-???-???-???-???-??? -???- 20w 2d 173 lb 130/80 Negative -???-???-???-???-???-? ??-???-???-???-???-??? -???- Negative 145 -???-???-???-???-???-? ??-???-???-???-???-??? -???- GP - no LOF , VB, DFM, ctx. Anatomy nl. 08/03/20 -???-???-???-???-???-? ??-???-???-???-???-??? -???- 24w 3d 179 lb 118/70 Trace -???-???-???-???-???-? ??-???-???-???-???-??? -???- Negative 149 -???-???-???-???-???-? ??-???-???-???-???-??? -???- MH-No VB, LUDWIN EstevanJian Foster FM. 08/30/20 -???-???-???-???-???-? ??-???-???-???-???-??? -???- 28w 2d 182 lb 122/77 Negative -???-???-???-???-???-? ??-???-???-???-?? (more content not included)... [facility] English Tutor Office Visit Reporton 09-13-2020 English Tutor Office Visit Report [facility] [address] [place] [address] OFFICE VISIT Date of Service: 09/13/20 MR#: [id number] Acct: [id number] Name: ISABEL ACHARYA Rep #: [id number] : 1995 Provider: Dr. Selin mims MD Age/Sex: 25/F [place] [facility] [place]: Signed Intake Vital Signs 09/13/20 08:10 09/13/20 08:11 Height 5 ft 3 in Weight: 183 lb 4 oz BMI 32.4 30.6 BP 120/72 Intake Visit Reasons: 30WK OB Floatman Required: No Is patient in pain?: No Allergies No Known Allergies Allergy (Verified 09/13/20 08:10) Medications prenat.vits,taylor,min-ir on-folic 1 tab PO DAILY 02/03/19 [History Confirmed 09/13/20] Last Menstral Period: 02/14/20 Zika: Zika virus screening: Negative : No PFSH PFSH Surgical History S/P ACL repair Family History Mother Heart disease Father Heart disease Social History adopted: No household members: family housing: house number of children: 1 current occupational status: employed Smoking Status: Never smoker second hand exposure: No alcohol intake: never substance use type: does not use well-balanced diet: daily or most days caffeine: No what type of physical activity do you participate in: none seatbelt use: always do you feel safe at home: Yes additional social history: - Ramone Pregancy History 2 Elective abortions Hx Para 1 Spontaneous abortions Hx # Term Pregnancies Ectopic pregnancies Hx # Pregnancies 1 Multiple births # of living children 1 Past Pregnancies Del. Date Name GA/Weeks Outcome Route Bth Weight Gen Labor Lgth Anesthesia Del Locatn Provider FOB 08/02/19 Perfecto 36 live - 6lbs 6oz Male 8 hours epidural [facility] Dr. Selin Ferrari Delivery Date: 08/02/19 IOL Celena Flores HPI 30WK OB Details: ISABEL ACHARYA is a 25 year old who presents for routine OB visit. OB Visit JOHN Calculator Estimated Delivery Date Method Current WG Current Estimate 11/20/20 LMP (Certain) 30w 2d Other Estimates 11/17/20 Ultrasound #1 30w 5d Expected Delivery Route/Plan Labor Preferences- CB/BF classes: [] labor support person: [] labor intervention preferences: [] pain management options preferred: [] cut cord/dad catch: [] : [] PP control planned: [] discussed possible routes of delivery and associated risks: [] special requests: [] Specific Issue/Plans covid status: non immune flu vaccine: decline tdap vaccine: declines rhogam: na LARC form signed: declined movement and labor precautions reviewed. Problem list reviewed and updated with the most current plan of care details and appropriate orders placed. Relevant counseling for the gestational age provided. Continue routine care and follow up unless otherwise noted in visit notes/problem list details Initial Weight: Not Recorded Date -???-???-???-???-???-? ??-???-???-???-???-??? -???- EGA Weight BP Urine Prot -???-???-???-???-???-? ??-???-???-???-???-??? -???- Glucose FHR FuHt Pres Dilation -???-???-???-???-???-? ??-???-???-???-???-??? -???- Effaced St Visit Note 04/12/20 -???-???-???-???-???-? ??-???-???-???-???-??? -???- 8w 2d 164 lb 128/76 -???-???-???-???-???-? ??-???-???-???-???-??? -???- 175 -???-???-???-???-???-? ??-???-???-???-???-??? -???- GP - CRL 19m m consistent with LMP 05/10/20 -???-???-???-???-???-? ??-???-???-???-???-??? -???- 12w 2d 165 lb 4 oz 122/80 Negative -???-???-???-???-???-? ??-???-???-???-???-??? -???- Negative 160 -???-???-???-???-???-? ??-???-???-???-???-??? -???- GP - no cranberry bog supervisor mping or bleeding. PRR. Awaiting NIPT results. Anatomy scan ordered. 06/09/20 -???-???-???-???-???-? ??-???-???-???-???-??? -???- 16w 4d 168 lb 118/76 Trace -???-???-???-???-???-? ??-???-???-???-???-??? -???- Negative 155 -???-???-???-???-???-? ??-???-???-???-???-??? -???- -No Vb, LO F. Reviewed NIPT LR male. Anatomy 06/2907/05/20 -???-???-???-???-???-? ??-???-???-???-???-??? -???- 20w 2d 173 lb 130/80 Negative -???-???-???-???-???-? ??-???-???-???-???-??? -???- Negative 145 -???-???-???-???-???-? ??-???-???-???-???-??? -???- GP - no LOF , VB, DFM, ctx. Anatomy . 08/03/20 -???-???-???-???-???-? ??-???-???-???-???-??? -???- 24w 3d 179 lb 118/70 Trace -???-???-???-???-???-? ??-???-???-???-???-??? -???- Negative 149 -???-???-???-???-???-? ??-???-???-???-???-??? -???- -No VB, LO F. Good . 08/30/20 -???-???-???-???-???-? ??-???-???-???-???-??? -???- 28w 2d 182 lb 122/77 Negative -???-???-???-???- (more content not included)... [facility] CBC W/Diff, Automatedon 06-2 Absolute Lymph 1.41 X10 3/uL Normal 0.83-4.51 [facility] Comment on above: Performed By: #### L 501.0250, L100.0100 #### [facility] [address] [place], [address] Absolute Neut 6.2 X10 3/uL Normal 2.0-7.7 [facility] Comment on above: Performed By: #### L 501.0250, L100.0100 #### [facility] [address] [place], [address] Basophils/100 WBC (Bld) 0.2 % Normal 0-1 [facility] Comment on above: Performed By: #### L 501.0250, L100.0100 #### [facility] [address] [place], [address] Eosinophils/100 WBC (Bld) 1.1 % Normal 0-5 [facility] Comment on above: Performed By: #### L 501.0250, L100.0100 #### [facility] [address] [place], [address] Erythrocyte distribution width (RBC) [Ratio] 12.5 % Normal 11.6-14.6 [facility] Comment on above: Performed By: #### L 501.0250, L100.0100 #### [facility] [address] [place], [address] Hematocrit (Bld) [Volume fraction] 37.6 % Normal 37-47 [facility] Comment on above: Performed By: #### L 501.0250, L100.0100 #### [facility] [address] [place], [address] Hemoglobin (Bld) [Mass/Vol] 12.3 g/dL Normal 12.0-15.0 [facility] Comment on above: Performed By: #### L 501.0250, L100.0100 #### [facility] [address] [place], [address] IG% 1.200 High 0.0-0.9 [facility] Comment on above: Result Comment: IG% - Immature Granulocytes (promyelocytes, myelocytes and metamyelocytes) > 1% indicates that a LEFT SHIFT is Present. Performed By: #### L 501.0250, L100.0100 #### [facility] [address] [place], [address] Lymphocytes/100 WBC (Bld) 16.5 % Low 19-41 [facility] Comment on above: Performed By: #### L 501.0250, L100.0100 #### [facility] [address] [place], [address] MCH (RBC) [Entitic mass] 30.8 pg Normal 27.0-32.0 [facility] Comment on above: Performed By: #### L 501.0250, L100.0100 #### [facility] [address] [place], [address] MCHC (RBC) [Mass/Vol] 32.7 g/dL Normal 32-36 [facility] Comment on above: Performed By: #### L 501.0250, L100.0100 #### [facility] [address] [place], [address] MCV (RBC) [Entitic vol] 94.0 fL Normal 81-99 [facility] Comment on above: Performed By: #### L 501.0250, L100.0100 #### [facility] [address] [place], [address] Monocytes/100 WBC (Bld) 8.6 % Normal 0-10 [facility] Comment on above: Performed By: #### L 501.0250, L100.0100 #### [facility] [address] [place], [address] Neutrophils/100 WBC (Bld) 72.4 % High 47-70 [facility] Comment on above: Performed By: #### L 501.0250, L100.0100 #### [facility] [address] [place], [address] Nucleated RBC (Bld) [#/Vol] 0 10*3/uL Normal 0-5 [facility] Comment on above: Performed By: #### L 501.0250, L100.0100 #### [facility] [address] [place], [address] Platelet mean volume (Bld) [Entitic vol] 10.6 fL Normal 6.2-12.0 [facility] Comment on above: Performed By: #### L 501.0250, L100.0100 #### [facility] [address] [place], [address] Platelets (Bld) [#/Vol] 185 10*3/uL Normal 150-450 [facility] Comment on above: Performed By: #### L 501.0250, L100.0100 #### [facility] [address] [place], [address] RBC (Bld) [#/Vol] 4.00 10*6/uL Low 4.2-5.4 [facility] Comment on above: Performed By: #### L 501.0250, L100.0100 #### [facility] [address] [place], [address] RDW SD 43.0 fl Normal 35.1-43.9 [facility] Comment on above: Performed By: #### L 501.0250, L100.0100 #### [facility] [address] [place], [address] WBC (Bld) [#/Vol] 8.6 10*3/uL Normal 4.4-11.0 [facility] Comment on above: Performed By: #### L 501.0250, L100.0100 #### [facility] [address] [place], [address] Glucose Challenge Gest 1H 50 noemi 08-30-2020 GLU GEST 50g 1H 122 mg/dL Normal 70-140 [facility] Comment on above: Performed By: #### L 501.0250, L100.0100 #### [facility] [address] [place], [address] L509.8000on 08-30-2020 Syphilis Abs Non-Reactive Normal [facility] Comment on above: Performed By: #### L 509.8000 #### [facility] [address] [place], [address] English Tutor Office Visit Reporton 08-30-2020 English Tutor Office Visit Report [facility] [address] [place] [address] OFFICE VISIT Date of Service: 08/30/20 MR#: [id number] Acct: [id number] Name: ISABEL ACHARYA Rep #: [id number] : 1995 Provider: Dr. Selin mims MD Age/Sex: 25/F [place] [facility] [place] Signed Intake Vital Signs 08/30/20 08:50 08/30/20 08:51 Height 5 ft 3 in Weight: 182 lb BMI 32.2 30.6 BP 122/77 H Intake Visit Reasons: 28WK OB Chief Complaint: est ob Floatman Required: No Is patient in pain?: No Allergies No Known Allergies Allergy (Verified 08/03/20 08:14) Medications prenat.vits,taylor,min-ir on-folic 1 tab PO DAILY 02/03/19 [History Confirmed 08/30/20] Last Menstral Period: 02/14/20 Zika: Zika virus screening: Negative : No PFSH PFSH Surgical History S/P ACL repair Family History Mother Heart disease Father Heart disease Social History adopted: No household members: family housing: house number of children: 1 current occupational status: employed Smoking Status: Never smoker second hand exposure: No alcohol intake: never substance use type: does not use well-balanced diet: daily or most days caffeine: No what type of physical activity do you participate in: none seatbelt use: always do you feel safe at home: Yes additional social history: - Ramone Pregancy History 2 Elective abortions Hx Para 1 Spontaneous abortions Hx # Term Pregnancies Ectopic pregnancies Hx # Pregnancies 1 Multiple births # of living children 1 Past Pregnancies Del. Date Name GA/Weeks Outcome Route Bth Weight Infant Gen Labor Lgth Anesthesia [facility] Provider FOB 08/02/19 Perfecto 36 live - 6lbs 6oz Male 8 hours epidural [facility] Dr. Selin Ferrari Delivery Date: 08/02/19 IOL Oligo Neyda,Celena HPI 28WK OB Details: ISABEL ACHARYA is a 25 year old who presents for routine OB visit. OB Visit JOHN Calculator Estimated Delivery Date Method Current WG Current Estimate 11/20/20 LMP (Certain) 28w 2d Other Estimates 11/17/20 Ultrasound #1 28w 5d Expected Delivery Route/Plan Labor Preferences- CB/BF classes: [] labor support person: [] labor intervention preferences: [] pain management options preferred: [] cut cord/dad catch: [] : [] PP control planned: [] discussed possible routes of delivery and associated risks: [] special requests: [] Specific Issue/Plans covid status: non immune flu vaccine: decline tdap vaccine: declines rhogam: na LARC form signed: movement and labor precautions reviewed. Problem list reviewed and updated with the most current plan of care details and appropriate orders placed. Relevant counseling for the gestational age provided. Continue routine care and follow up unless otherwise noted in visit notes/problem list details Initial Weight: Not Recorded Date -???-???-???-???-???-? ??-???-???-???-???-??? -???- EGA Weight BP Urine Prot -???-???-???-???-???-? ??-???-???-???-???-??? -???- Glucose FHR FuHt Pres Dilation -???-???-???-???-???-? ??-???-???-???-???-??? -???- Effaced St Visit Note 04/12/20 -???-???-???-???-???-? ??-???-???-???-???-??? -???- 8w 2d 164 lb 128/76 -???-???-???-???-???-? ??-???-???-???-???-??? -???- 175 -???-???-???-???-???-? ??-???-???-???-???-??? -???- GP - CRL 19m m consistent with LMP 05/10/20 -???-???-???-???-???-? ??-???-???-???-???-??? -???- 12w 2d 165 lb 4 oz 122/80 Negative -???-???-???-???-???-? ??-???-???-???-???-??? -???- Negative 160 -???-???-???-???-???-? ??-???-???-???-???-??? -???- GP - no cranberry bog supervisor mping or bleeding. PRR. Awaiting NIPT results. Anatomy scan ordered. 06/09/20 -???-???-???-???-???-? ??-???-???-???-???-??? -???- 16w 4d 168 lb 118/76 Trace -???-???-???-???-???-? ??-???-???-???-???-??? -???- Negative 155 -???-???-???-???-???-? ??-???-???-???-???-??? -???- MH-No Vb, LO F. Reviewed NIPT LR male. Anatomy 06/2907/05/20 -???-???-???-???-???-? ??-???-???-???-???-??? -???- 20w 2d 173 lb 130/80 Negative -???-???-???-???-???-? ??-???-???-???-???-??? -???- Negative 145 -???-???-???-???-???-? ??-???-???-???-???-??? -???- GP - no LOF , VB, DFM, ctx. Anatomy nl. 08/03/20 -???-???-???-???-???-? ??-???-???-???-???-??? -???- 24w 3d 179 lb 118/70 Trace -???-???-???-???-???-? ??-???-???-???-???-??? -???- Negative 149 -???-???-???-???-???-? ??-???-???-???-???-??? -???- MH-No VB, LO F. Good FM. 08/30/20 -???-???-???-???-???-? ??-???-???-???-???-??? -???- 28w 2d 182 lb 122/77 Negative (more content not included)... [facility] English Tutor Office Visit Reporton 08-03-2020 English Tutor Office Visit Report [facility] [address] [place] [address] OFFICE VISIT Date of Service: 08/03/20 MR#: [id number] Acct: [id number] Name: ISABEL ACHARYA Rep #: [id number] : 1995 Provider: BEAU ramirez Age/Sex: 24/F [place] [facility] [place]: Signed Intake Vital Signs 08/03/20 08:14 08/03/20 08:16 Height 5 ft 3 in Weight: 179 lb BMI 31.6 30.6 BP 118/70 Intake Visit Reasons: 24WK OB Floatman Required: No Accompanied by: self Allergies No Known Allergies Allergy (Verified 08/03/20 08:14) Medications prenat.vits,taylor,min-ir on-folic 1 tab PO DAILY 02/03/19 [History Confirmed 08/03/20] Last Menstral Period: 02/14/20 Zika: Zika virus screening: Negative : No PFSH PFSH Surgical History S/P ACL repair Family History Mother Heart disease Father Heart disease Social History adopted: No household members: family housing: house number of children: 1 current occupational status: employed Smoking Status: Never smoker second hand exposure: No alcohol intake: never substance use type: does not use well-balanced diet: daily or most days caffeine: No what type of physical activity do you participate in: none seatbelt use: always do you feel safe at home: Yes additional social history: - Ramone Pregancy History 2 Elective abortions Hx Para 1 Spontaneous abortions Hx # Term Pregnancies Ectopic pregnancies Hx # Pregnancies 1 Multiple births # of living children 1 Past Pregnancies Del. Date Name GA/Weeks Outcome Route Bth Weight Infant Gen Labor Lgth Anesthesia Del Locatn Provider FOB 08/02/19 Perfecto 36 live - 6lbs 6oz Male 8 hours epidural [facility] Dr. Selin Ferrari Delivery Date: 08/02/19 IOL Oligo Neyda,Celena HPI 24WK OB Details: ISABEL ACHARYA is a 24 year old who presents for routine OB visit. OB Visit JOHN Calculator Estimated Delivery Date Method Current WG Current Estimate 11/20/20 LMP (Certain) 24w 3d Other Estimates 11/17/20 Ultrasound #1 24w 6d Expected Delivery Route/Plan Labor Preferences- CB/BF classes: [] labor support person: [] labor intervention preferences: [] pain management options preferred: [] cut cord/dad catch: [] : [] PP control planned: [] discussed possible routes of delivery and associated risks: [] special requests: [] Specific Issue/Plans flu vaccine: [] tdap vaccine: [] rhogam: [] LARC form signed: [] Problem list reviewed and updated with the most current plan of care details and appropriate orders placed. Relevant counseling for the gestational age provided. Continue routine care and follow up unless otherwise noted in visit notes/problem list details Initial Weight: Not Recorded Date -???-???-???-???-???-? ??-???-???-???-???-??? -???- EGA Weight BP Urine Prot -???-???-???-???-???-? ??-???-???-???-???-??? -???- Glucose FHR FuHt Pres Dilation -???-???-???-???-???-? ??-???-???-???-???-??? -???- Effaced St Visit Note 04/12/20 -???-???-???-???-???-? ??-???-???-???-???-??? -???- 8w 2d 164 lb 128/76 -???-???-???-???-???-? ??-???-???-???-???-??? -???- 175 -???-???-???-???-???-? ??-???-???-???-???-??? -???- GP - CRL 19m m consistent with LMP 05/10/20 -???-???-???-???-???-? ??-???-???-???-???-??? -???- 12w 2d 165 lb 4 oz 122/80 Negative -???-???-???-???-???-? ??-???-???-???-???-??? -???- Negative 160 -???-???-???-???-???-? ??-???-???-???-???-??? -???- GP - no cranberry bog supervisor mping or bleeding. PRR. Awaiting NIPT results. Anatomy scan ordered. 06/09/20 -???-???-???-???-???-? ??-???-???-???-???-??? -???- 16w 4d 168 lb 118/76 Trace -???-???-???-???-???-? ??-???-???-???-???-??? -???- Negative 155 -???-???-???-???-???-? ??-???-???-???-???-??? -???- -No LUDWIN Del Rosario F. Reviewed NIPT LR male. Anatomy 06/2907/05/20 -???-???-???-???-???-? ??-???-???-???-???-??? -???- 20w 2d 173 lb 130/80 Negative -???-???-???-???-???-? ??-???-???-???-???-??? -???- Negative 145 -???-???-???-???-???-? ??-???-???-???-???-??? -???- GP - no LOF , VB, DFM, ctx. Anatomy . 08/03/20 -???-???-???-???-???-? ??-???-???-???-???-??? -???- 24w 3d 179 lb 118/70 Trace -???-???-???-???-???-? ??-???-???-???-???-??? -???- Negative 149 -???-???-???-???-???-? ??-???-???-???-???-??? -???- -No LUDWIN DEL ROSARIO F. Cristian FM. ACOG First Trimester First Trimester: Desire for , Alcohol, Tobacco Cessation, Illicit/Recreational Drug/Substance Use, Intimate Partner Violence, Barriers to care, Unstable Housing, Communication Barriers, Env (more content not included)... [facility] English Tutor Office Visit Reporton 07-05-2020 English Tutor Office Visit Report [facility] [address] [place] [address] OFFICE VISIT Date of Service: 07/05/20 MR#: [id number] Acct: [id number] Name: ISABEL ACHARYA Rep #: [id number] : 1995 Provider: Dr. Millie segovia MD Age/Sex: 24/F [place] [facility] [place]: Signed Intake Vital Signs 07/05/20 08:30 07/05/20 08:31 Height 5 ft 3 in Weight: 173 lb BMI 29.7 30.6 BP 130/80 H Intake Visit Reasons: 20WK OB Floatman Required: No Is patient in pain?: No Allergies No Known Allergies Allergy (Verified 07/05/20 08:29) Medications prenat.vits,taylor,min-ir on-folic 1 tab PO DAILY 02/03/19 [History Confirmed 07/05/20] Last Menstral Period: 02/14/20 Zika: Zika virus screening: Negative : No PFSH PFSH Surgical History S/P ACL repair Family History Mother Heart disease Father Heart disease Social History adopted: No household members: family housing: house number of children: 1 current occupational status: employed Smoking Status: Never smoker second hand exposure: No alcohol intake: never substance use type: does not use well-balanced diet: daily or most days caffeine: No what type of physical activity do you participate in: none seatbelt use: always do you feel safe at home: Yes additional social history: - Ramone Pregancy History 2 Elective abortions Hx Para 1 Spontaneous abortions Hx # Term Pregnancies Ectopic pregnancies Hx # Pregnancies 1 Multiple births # of living children 1 Past Pregnancies Del. Date Name GA/Weeks Outcome Route Bth Weight Infant Gen Labor Lgth Anesthesia Del Locatn Provider FOB 08/02/19 Perfecto 36 live - 6lbs 6oz Male 8 hours epidural [facility] Dr. Selin Ferrari Delivery Date: 08/02/19 IOL Oligo Celena Faye HPI 20WK OB Details: ISABEL ACHARYA is a 24 year old who presents for routine OB visit. OB Visit JOHN Calculator Estimated Delivery Date Method Current WG Current Estimate 11/20/20 LMP (Certain) 20w 2d Other Estimates 11/17/20 Ultrasound #1 20w 5d Expected Delivery Route/Plan Labor Preferences- CB/BF classes: [] labor support person: [] labor intervention preferences: [] pain management options preferred: [] cut cord/dad catch: [] : [] PP control planned: [] discussed possible routes of delivery and associated risks: [] special requests: [] Specific Issue/Plans flu vaccine: [] tdap vaccine: [] rhogam: [] LARC form signed: [] Problem list reviewed and updated with the most current plan of care details and appropriate orders placed. Relevant counseling for the gestational age provided. Continue routine care and follow up unless otherwise noted in visit notes/problem list details Initial Weight: Not Recorded Date -???-???-???-???-???-? ??-???-???-???-???-??? -???- EGA Weight BP Urine Prot -???-???-???-???-???-? ??-???-???-???-???-??? -???- Glucose FHR FuHt Pres Dilation -???-???-???-???-???-? ??-???-???-???-???-??? -???- Effaced St Visit Note 04/12/20 -???-???-???-???-???-? ??-???-???-???-???-??? -???- 8w 2d 164 lb 128/76 -???-???-???-???-???-? ??-???-???-???-???-??? -???- 175 -???-???-???-???-???-? ??-???-???-???-???-??? -???- GP - CRL 19m m consistent with LMP 05/10/20 -???-???-???-???-???-? ??-???-???-???-???-??? -???- 12w 2d 165 lb 4 oz 122/80 Negative -???-???-???-???-???-? ??-???-???-???-???-??? -???- Negative 160 -???-???-???-???-???-? ??-???-???-???-???-??? -???- GP - no cranberry bog supervisor mping or bleeding. PRR. Awaiting NIPT results. Anatomy scan ordered. 06/09/20 -???-???-???-???-???-? ??-???-???-???-???-??? -???- 16w 4d 168 lb 118/76 Trace -???-???-???-???-???-? ??-???-???-???-???-??? -???- Negative 155 -???-???-???-???-???-? ??-???-???-???-???-??? -???- MH-No Vb, LO F. Reviewed NIPT LR male. Anatomy US 06/2907/05/20 -???-???-???-???-???-? ??-???-???-???-???-??? -???- 20w 2d 173 lb 130/80 Negative -???-???-???-???-???-? ??-???-???-???-???-??? -???- Negative 145 -???-???-???-???-???-? ??-???-???-???-???-??? -???- GP - no LOF , VB, DFM, ctx. Anatomy nl. ACOG First Trimester First Trimester: Desire for , Alcohol, Tobacco Cessation, Illicit/Recreational Drug/Substance Use, Intimate Partner Violence, Barriers to care, Unstable Housing, Communication Barriers, Environmental/Work Hazards, Anticipated Course of Care, Toxoplasmosis Precations, Use of Any medications, Sexual activity, Exercise, Dental Care, Sauna/Hot tub use, Seat Belt use, Childbirth classes/Hospital facilities, (more content not included)... [facility] OB Anatomy Scanon 06-29-2020 OB Anatomy Scan [facility] Imaging Services [address] [place] [address] OB Anatomy Scan MR#: [id number] Acct: [id number] Name: IASBEL ACHARYA Rep #: [id number] : 1995 F 24 From: Sumanth hart MD PCP: Care Physician, No Primary Status: REG CLI Study: OB Anatomy Scan Date of Exam: 06/29/20 Exam# [id number] Ordering Dr: Millie Watkins MD STUDY: SECOND AND THIRD TRIMESTER OBSTETRICAL ULTRASOUND REASON FOR EXAM: Female, 24 years old anatomy LMP: 02/14/2020. TECHNIQUE: Transabdominal and Transvaginal TECHNICAL QUALITY: Adequate. PRIOR ULTRASOUND: None. FINDINGS: There is a single intrauterine fetus. The fetus is in a breech presentation. There is demonstrated cardiac activity with a heart rate of 151 bpm. There is a normal amniotic fluid volume. The largest amniotic fluid pocket measures 5.2 cm x 4.3 cm. The amniotic fluid index (ELMIRA) is within normal limits. The placenta is anterior in location and is not low lying. There are Grade 0 placental changes. The cervix measures 3.5 cm in length. The adnexal regions are not visualized. BIOMETRY: BPD: 4.46 cm: 19 weeks, 3 days HC: 17.1 cm: 19 weeks, 4 days AC: 15.16 cm: 20 weeks, 2 days FL: 2.95 cm: 19 weeks, 0 days CI: 76% FL/BPD: 66.1 FL/HC: FL/AC: 19.4 HC/AC: 1.13 age by current US: 19 weeks, 3 days. JOHN by current US: 11/20/2020. Estimated weight: 312 grams, +/- 47 grams, 64.5 %. Age by LMP: 19 weeks, 3 days. JOHN by LMP: 11/20/2020. ANATOMY: Gender: Male Cranium: Normal lateral ventricles. Normal choroid plexus. Normal cerebellum. Normal cisterna magna. Normal face, nose and lips. Chest: Normal 4-chamber heart. Abdomen/Pelvis: Normal diaphragm. Normal stomach. Normal abdominal wall. Normal cord insertion. Normal 3 vessel cord. Normal kidneys. Normal bladder. Spine: Normal cervical spine. Normal thoracic spine. Normal lumbar spine. Normal sacrum. Extremities: Normal bilateral upper extremities. Normal bilateral lower extremities. IMPRESSION: Single live uterine gestation with a mean gestational age of 19 weeks and 3 days. Electronically Signed: Sumanth Zhang MD at 13:34 EDT , Service support , STUDY: FIRST TRIMESTER OBSTETRICAL ULTRASOUND REASON FOR EXAM: Female, 24 years old anatomy LMP: 02/14/2020. TECHNIQUE: Transvaginal TECHNICAL QUALITY: Adequate. PRIOR ULTRASOUND: None. FINDINGS: Transvaginal examination was utilized for measurement of the cervical length. The cervix measures 3.5 cm. US/OB Anatomy Scan IMPRESSION: The cervix measures 3.5 cm in length. Electronically Signed: Sumanth Zhang MD at 13:35 EDT , Service support , CC: No Primary Care Physician; Dr. Millie Watkins MD Integration Architect: Signed [facility] English Tutor Office Visit Reporton 06-09-2020 English Tutor Office Visit Report [facility] [address] [place] [address]. [address] [place] [address] OFFICE VISIT Date of Service: 06/09/20 MR#: [id number] Acct: [id number] Name: ISABEL ACHARYA Rep #: [id number] : 1995 Provider: BEAU ramirez Age/Sex: 24/F [place] [facility] [place]: Signed Intake Vital Signs 06/09/20 Height 5 ft 3 in 06/09/20 Weight: 168 lb 06/09/20 BMI 29.7 06/09/20 BP 118/76 Intake Visit Reasons: 16WK OB * 09/27 APPT NEEDS R/S Floatman Required: No Accompanied by: self Allergies No Known Allergies Allergy (Verified 06/09/20 08:38) Medications prenat.vits,taylor,min-ir on-folic 1 tab PO DAILY 02/03/19 [History Confirmed 06/09/20] Last Menstral Period: 02/14/20 Zika: Zika virus screening: Negative : No PFSH PFSH Surgical History S/P ACL repair (Acute) Family History Mother Heart disease Father Heart disease Social History (Updated 06/09/20 @ 08:53 by Kristin Red NP, PYRIDINE OPERATOR-C) adopted: No household members: family housing: house number of children: 1 current occupational status: employed Smoking Status: Never smoker second hand exposure: No alcohol intake: never substance use type: does not use well-balanced diet: daily or most days caffeine: No what type of physical activity do you participate in: none seatbelt use: always do you feel safe at home: Yes additional social history: - Ramone Pregancy History 2 Elective abortions Hx Para 1 Spontaneous abortions Hx # Term Pregnancies Ectopic pregnancies Hx # Pregnancies 1 Multiple births # of living children 1 Past Pregnancies Del. Date Name GA/Weeks Outcome Route Bth Weight Gen Labor Lgth Anesthesia Del Locatn Provider FOB 08/02/19 Perfecto 36 live - 6lbs 6oz Male 8 hours epidural [facility] Dr. Selin Ferrari Delivery Date: 08/02/19 IOL Oligo Neyda,Celena HPI 16WK OB * 09/27 APPT NEEDS R/S: Details: ISABEL ACHARYA is a 24 year old who presents for routine OB visit. OB Visit JOHN Calculator Estimated Delivery Date Method Current WG Current Estimate 11/20/20 LMP (Certain) 16w 4d Other Estimates 11/17/20 Ultrasound #1 17w 0d Expected Delivery Route/Plan Labor Preferences- CB/BF classes: [] labor support person: [] labor intervention preferences: [] pain management options preferred: [] cut cord/dad catch: [] : [] PP control planned: [] discussed possible routes of delivery and associated risks: [] special requests: [] Specific Issue/Plans flu vaccine: [] tdap vaccine: [] rhogam: [] LARC form signed: [] Problem list reviewed and updated with the most current plan of care details and appropriate orders placed. Relevant counseling for the gestational age provided. Continue routine care and follow up unless otherwise noted in visit notes/problem list details Initial Weight: Not Recorded Date -???-???-???-???-???-? ??-???-???-???-???-??? -???- EGA Weight BP Urine Prot -???-???-???-???-???-? ??-???-???-???-???-??? -???- Glucose FHR FuHt Pres Dilation -???-???-???-???-???-? ??-???-???-???-???-??? -???- Effaced St Visit Note 04/12/20 -???-???-???-???-???-? ??-???-???-???-???-??? -???- 8w 2d 164 lb 128/76 -???-???-???-???-???-? ??-???-???-???-???-??? -???- 175 -???-???-???-???-???-? ??-???-???-???-???-??? -???- GP - CRL 19m m consistent with LMP 05/10/20 -???-???-???-???-???-? ??-???-???-???-???-??? -???- 12w 2d 165 lb 4 oz 122/80 Negative -???-???-???-???-???-? ??-???-???-???-???-??? -???- Negative 160 -???-???-???-???-???-? ??-???-???-???-???-??? -???- GP - no cranberry bog supervisor mping or bleeding. PRR. Awaiting NIPT results. Anatomy scan ordered. 06/09/20 -???-???-???-???-???-? ??-???-???-???-???-??? -???- 16w 4d 168 lb 118/76 Trace -???-???-???-???-???-? ??-???-???-???-???-??? -???- Negative 155 -???-???-???-???-???-? ??-???-???-???-???-??? -???- -No Vb, LUDWIN F. Reviewed NIPT LR male. Anatomy US 06/29 ACOG First Trimester First Trimester: Desire for , Alcohol, Tobacco Cessation, Illicit/Recreational Drug/Substance Use, Intimate Partner Violence, Barriers to care, Unstable Housing, Communication Barriers, Environmental/Work Hazards, Anticipated Course of Care, Toxoplasmosis Precations, Use of Any medications, Sexual activity, Exercise, Dental Care, Sauna/Hot tub use, Seat Belt use, Childbirth classes/Hospital facilities, , Travel, Indications for US and Screening for Aneuploidy Second Trimester Second Trimester: Signs and Symptoms of Labor, Selecting a care provider, Reproductive Life Planning, Postpart (more content not included)... [facility] English Tutor Office Visit Reporton 05-10-2020 English Tutor Office Visit Report [facility] [address] [place] [address] OFFICE VISIT Date of Service: 05/10/20 MR#: [id number] Acct: [id number] Name: ISABEL ACHARYA Rep #: [id number] : 1995 Provider: Dr. Millie segovia MD Age/Sex: 24/F [place] [facility] [place]: Signed Intake Vital Signs 05/10/20 Height 5 ft 3 in 05/10/20 Weight: 165 lb 4 oz 05/10/20 BMI 29.2 05/10/20 BP 122/80 H Intake Visit Reasons: 12WK OB Floatman Required: No Is patient in pain?: No Allergies No Known Allergies Allergy (Verified 05/10/20 08:30) Medications prenat.vits,taylor,min-ir on-folic 1 tab PO DAILY 02/03/19 [History Confirmed 05/10/20] Last Menstral Period: 02/14/20 Zika: Zika virus screening: Negative : No PFSH PFSH Surgical History S/P ACL repair (Acute) Family History Mother Heart disease Father Heart disease Social History (Updated 05/10/20 @ 08:[address] Millie Watkins MD) adopted: No household members: family housing: house number of children: 1 current occupational status: employed Smoking Status: Never smoker second hand exposure: No alcohol intake: never substance use type: does not use well-balanced diet: daily or most days caffeine: No what type of physical activity do you participate in: none seatbelt use: always do you feel safe at home: Yes additional social history: - Ramone Pregancy History 2 Elective abortions Hx Para 1 Spontaneous abortions Hx # Term Pregnancies Ectopic pregnancies Hx # Pregnancies 1 Multiple births # of living children 1 Past Pregnancies Del. Date Name GA/Weeks Outcome Route Bth Weight Gen Labor Lgth Anesthesia Del Locatn Provider FOB 08/02/19 Perfecto 36 live - 6lbs 6oz Male 8 hours epidural [facility] Dr. Selin Ferrari Delivery Date: 08/02/19 IOL Oligo Neyda,Celena HPI 12WK OB : Details: ISABEL ACHARYA is a 24 year old who presents for routine OB visit. OB Visit JOHN Calculator Estimated Delivery Date Method Current WG Current Estimate 11/20/20 LMP (Certain) 12w 2d Other Estimates 11/17/20 Ultrasound #1 12w 5d Expected Delivery Route/Plan Labor Preferences- CB/BF classes: [] labor support person: [] labor intervention preferences: [] pain management options preferred: [] cut cord/dad catch: [] : [] PP control planned: [] discussed possible routes of delivery and associated risks: [] special requests: [] Specific Issue/Plans flu vaccine: [] tdap vaccine: [] rhogam: [] LARC form signed: [] Problem list reviewed and updated with the most current plan of care details and appropriate orders placed. Relevant counseling for the gestational age provided. Continue routine care and follow up unless otherwise noted in visit notes/problem list details Initial Weight: Not Recorded Date -???-???-???-???-???-? ??-???-???-???-???-??? -???- EGA Weight BP Urine Prot -???-???-???-???-???-? ??-???-???-???-???-??? -???- Glucose FHR FuHt Pres Dilation -???-???-???-???-???-? ??-???-???-???-???-??? -???- Effaced St Visit Note 04/12/20 -???-???-???-???-???-? ??-???-???-???-???-??? -???- 8w 2d 164 lb 128/76 -???-???-???-???-???-? ??-???-???-???-???-??? -???- 175 -???-???-???-???-???-? ??-???-???-???-???-??? -???- GP - CRL 19m m consistent with LMP 05/10/20 -???-???-???-???-???-? ??-???-???-???-???-??? -???- 12w 2d 165 lb 4 oz 122/80 Negative -???-???-???-???-???-? ??-???-???-???-???-??? -???- Negative 160 -???-???-???-???-???-? ??-???-???-???-???-??? -???- GP - no cranberry bog supervisor mping or bleeding. PRR. Awaiting NIPT results. Anatomy scan ordered. ACOG First Trimester First Trimester: Desire for , Alcohol, Tobacco Cessation, Illicit/Recreational Drug/Substance Use, Intimate Partner Violence, Barriers to care, Unstable Housing, Communication Barriers, Environmental/Work Hazards, Anticipated Course of Care, Toxoplasmosis Precations, Use of Any medications, Sexual activity, Exercise, Dental Care, Sauna/Hot tub use, Seat Belt use, Childbirth classes/Hospital facilities, , Travel, Indications for US and Screening for Aneuploidy Second Trimester Second Trimester: Signs and Symptoms of Labor, Selecting a care provider, Reproductive Life Planning, Care Planning and Intimate Partner Violence; discussed Tobacco Cessation or discussed Depression/Anxiety Third Trimester Third Trimester: Pain Management Plans, Labor support person(s), Immediate Larc and Movement Monitoring; discussed Trial of Labor after Cou (more content not included)... [facility] CBC W/Diff, Automatedon 03-0 Absolute Lymph 1.46 X10 3/uL Normal 0.83-4.51 [facility] Comment on above: Performed By: #### L 3890.6300, L3890.6100, L3890.6005, BTS, L900.0098, L509.4005, L100.0100 ####[facility] [address] [place], [address] Absolute Neut 4.9 X10 3/uL Normal 2.0-7.7 [facility] Comment on above: Performed By: #### L 3890.6300, L3890.6100, L3890.6005, BTS, L900.0098, L509.4005, L100.0100 ####[facility] [address] [place], [address] Basophils/100 WBC (Bld) 0.3 % Normal 0-1 [facility] Comment on above: Performed By: #### L 3890.6300, L3890.6100, L3890.6005, BTS, L900.0098, L509.4005, L100.0100 ####[facility] [address] [place], [address] Eosinophils/100 WBC (Bld) 0.4 % Normal 0-5 [facility] Comment on above: Performed By: #### L 3890.6300, L3890.6100, L3890.6005, BTS, L900.0098, L509.4005, L100.0100 ####[facility] [address] [place], [address] Erythrocyte distribution width (RBC) [Ratio] 12.4 % Normal 11.6-14.6 [facility] Comment on above: Performed By: #### L 3890.6300, L3890.6100, L3890.6005, BTS, L900.0098, L509.4005, L100.0100 ####[facility] [address] [place], [address] Hematocrit (Bld) [Volume fraction] 38.6 % Normal 37-47 [facility] Comment on above: Performed By: #### L 3890.6300, L3890.6100, L3890.6005, BTS, L900.0098, L509.4005, L100.0100 ####[facility] [address] [place], [address] Hemoglobin (Bld) [Mass/Vol] 13.0 g/dL Normal 12.0-15.0 [facility] Comment on above: Performed By: #### L 3890.6300, L3890.6100, L3890.6005, BTS, L900.0098, L509.4005, L100.0100 ####[facility] [address] [place], [address] IG% 0.400 Normal 0.0-0.9 [facility] Comment on above: Result Comment: IG% - Immature Granulocytes (promyelocytes, myelocytes and metamyelocytes) > 1% indicates that a LEFT SHIFT is Present. Performed By: #### L 3890.6300, L3890.6100, L3890.6005, BTS, L900.0098, L509.4005, L100.0100 ####[facility] [address] [place], [address] Lymphocytes/100 WBC (Bld) 20.9 % Normal 19-41 [facility] Comment on above: Performed By: #### L 3890.6300, L3890.6100, L3890.6005, BTS, L900.0098, L509.4005, L100.0100 ####[facility] [address] [place], [address] MCH (RBC) [Entitic mass] 31.1 pg Normal 27.0-32.0 [facility] Comment on above: Performed By: #### L 3890.6300, L3890.6100, L3890.6005, BTS, L900.0098, L509.4005, L100.0100 ####[facility] [address] [place], [address] MCHC (RBC) [Mass/Vol] 33.7 g/dL Normal 32-36 [facility] Comment on above: Performed By: #### L 3890.6300, L3890.6100, L3890.6005, BTS, L900.0098, L509.4005, L100.0100 ####[facility] [address] [place], [address] MCV (RBC) [Entitic vol] 92.3 fL Normal 81-99 [facility] Comment on above: Performed By: #### L 3890.6300, L3890.6100, L3890.6005, BTS, L900.0098, L509.4005, L100.0100 ####[facility] [address] [place], [address] Monocytes/100 WBC (Bld) 8.5 % Normal 0-10 [facility] Comment on above: Performed By: #### L 3890.6300, L3890.6100, L3890.6005, BTS, L900.0098, L509.4005, L100.0100 ####[facility] [address] [place], [address] Neutrophils/100 WBC (Bld) 69.5 % Normal 47-70 [facility] Comment on above: Performed By: #### L 3890.6300, L3890.6100, L3890.6005, BTS, L900.0098, L509.4005, L100.0100 ####[facility] [address] [place], [address] Nucleated RBC (Bld) [#/Vol] 0 10*3/uL Normal 0-5 [facility] Comment on above: Performed By: #### L 3890.6300, L3890.6100, L3890.6005, BTS, L900.0098, L509.4005, L100.0100 ####[facility] [address] [place], [address] Platelet mean volume (Bld) [Entitic vol] 11.0 fL Normal 6.2-12.0 [facility] Comment on above: Performed By: #### L 3890.6300, L3890.6100, L3890.6005, BTS, L900.0098, L509.4005, L100.0100 ####[facility] [address] [place], [address] Platelets (Bld) [#/Vol] 216 10*3/uL Normal 150-450 [facility] Comment on above: Performed By: #### L 3890.6300, L3890.6100, L3890.6005, BTS, L900.0098, L509.4005, L100.0100 ####[facility] [address] [place], [address] RBC (Bld) [#/Vol] 4.18 10*6/uL Low 4.2-5.4 [facility] Comment on above: Performed By: #### L 3890.6300, L3890.6100, L3890.6005, BTS, L900.0098, L509.4005, L100.0100 ####[facility] [address] [place], [address] RDW SD 42.3 fl Normal 35.1-43.9 [facility] Comment on above: Performed By: #### L 3890.6300, L3890.6100, L3890.6005, BTS, L900.0098, L509.4005, L100.0100 ####[facility] [address] [place], [address] WBC (Bld) [#/Vol] 7.0 10*3/uL Normal 4.4-11.0 [facility] Comment on above: Performed By: #### L 3890.6300, L3890.6100, L3890.6005, BTS, L900.0098, L509.4005, L100.0100 ####[facility] [address] [place], [address] HIV - WCHon 05-04-2020 HIV Non-Reactive Normal Nonreactive [facility] Comment on above: Order Comment: Reaso n for Exam: Performed By: #### L 3890.6300, L3890.6100, L3890.6005, BTS, L900.0098, L509.4005, L100.0100 ####[facility] [address] [place], [place], [id number] Hepatitis B Surface Antigeno n 05-04-2020 HEP B Surf Ag Non-Reactive Normal Nonreactive [facility] Comment on above: Order Comment: Reaso n for Exam: Performed By: #### L 3890.6300, L3890.6100, L3890.6005, BTS, L900.0098, L509.4005, L100.0100 ####[facility] [address] [place], [place], [id number] Hepatitis C Antibodyon 05-04 Hepatitis C Ab Non-Reactive Normal Nonreactive [facility] Comment on above: Order Comment: Reaso n for Exam: Result Comment: Non Reactive: < 0.8 Equivocal: >/= 0.8 to < 1.0 Reactive: >/= 1.0 The CDC recommends that a reactive/equivocal HCV antibody result be followed up by the HCV Nucleic Acid Amplification test (751615) Performed By: #### L 3890.6300, L3890.6100, L3890.6005, BTS, L900.0098, L509.4005, L100.0100 ####[facility] [address] [place], [place], [id number] NATERAon 05-04-2020 NATURA MAILED SPECIMEN Normal [facility] Comment on above: Performed By: #### L 3890.6300, L3890.6100, L3890.6005, BTS, L900.0098, L509.4005, L100.0100 ####[facility] [address] [place], [place], [id number] Rubella IgGon 05-04-2020 Rubella IgG Reactive Normal Nonreactive [facility] Comment on above: Order Comment: Reaso n for Exam: Result Comment: Anti body Results Interpretation of Immune Status Non Reactive Presumed Non-Immune Equivocal Equivocal Reactive Presumed Immune Performed By: #### L 3890.6300, L3890.6100, L3890.6005, BTS, L900.0098, L509.4005, L100.0100 ####[facility] [address] [place], [place], [address] Type AND Screenon 05-04-2020 Ab SCREEN GEL Negative Normal [facility] Comment on above: Order Comment: PN Performed By: #### L 3890.6300, L3890.6100, L3890.6005, BTS, L900.0098, L509.4005, L100.0100 ####[facility] [address] [place], [address] ABO and Rh group Nom (Bld) Blood group A Rh(D) positive Normal [facility] Comment on above: Order Comment: PN Performed By: #### L 3890.6300, L3890.6100, L3890.6005, BTS, L900.0098, L509.4005, L100.0100 ####[facility] [address] [place], [place], [address] Vital Signs Date Time Vital Sign Value Performing Clinician Faci lity 11-27-2023 12:48-0400 Body temperature 97.59 [degF] Angie De MD Work Phone: [facility] 11-27-2023 12:48-0400 Body weight 57.15 kg Angie De MD Work Phone: [facility] 11-27-2023 12:48-0400 Diastolic blood pressure 79 mm[Hg] Angie De MD Work Phone: [facility] 11-27-2023 12:48-0400 Heart rate 81 /min Angie De MD Work Phone: [facility] 11-27-2023 12:48-0400 SaO2% (BldA) [Mass fraction] 100 % Angie De MD Work Phone: [facility] 11-27-2023 12:48-0400 Systolic blood pressure 124 mm[Hg] Angie De MD Work Phone: [facility] Encounters Encounter Date Encounter Type Care Provider Facility Start: 11-27-2023 End: 11-28-2023 Telephone encounter Angie De MD Work Phone: [facility]ergy Start: 11-27-2023 End: 11-27-2023 ambulatory ANGIE DE Facility:[facility] Start: 11-27-2023 End: 11-27-2023 Office consultation new/estab patient 60 min Angie De MD Work Phone: Allergy Comment on above: Rash and nonspecific skin eruption (Primary Dx); Adverse food reaction, initial encounter; Non-allergic rhinitis Plan of Treatment Date Care Activity Detail Author Start: 08-22-2026 Urine microalbumin profile DTaP,Tdap,Td Vaccine (2 - Td or Tdap) [facility] Start: 12-21-2023 End: 12-21-2023 Patient encounter procedure 12/21/2023 8:00 AM EDT Office Visit [facility] [address] [place] [phone] Suzette Spain PA-C [address] [place] [address] Rash and nonspecific skin eruption [R21] [facility] Comment on above: Rash and nonspecific skin eruption [R21] Start: 11-27-2023 End: 02-26-2024 ALGN RED DYE IGE [facility] Work Phone: Comment on above: Expected: 11/27/2023 , Expires: 02/26/2024 Start: 11-04-2023 Covid-19 Vaccine ( season) Covid-19 Vaccine ( season) [facility] Start: 11-04-2023 Influenza vaccination Influenza Vacc ine (#1) [facility] Start: 2017 Screening for malign ant neoplasm of cervix Cervical Cancer Screening [facility] Start: 2014 Anxiety Screening Anxiety Screening [facility] Start: 2014 Depression Screening Depression Scre ening [facility] Start: 2014 Hepatitis C screening Hepatitis C Sc reening [facility] Start: 2014 HIV screening HIV Screening [facility] ALLERGEN SKIN TEST-FOOD ALLERGEN SKIN TEST-FOOD Procedures Routine Adverse food reaction, initial encounter Ordered: 11/27/2023 [facility] Comment on above: Ordered: 11/27/2023 ALLERGEN SKIN TEST-INHALANT 40 ALLERGEN SKIN TEST-INHALANT 40 Procedures Routine Non-allergic rhinitis Ordered: 11/27/2023 [facility] Comment on above: Ordered: 11/27/2023 ALLERGEN SKIN TEST-OTHER INHAL ALLERGEN SKIN TEST-OTHER INHAL Procedures Routine Non-allergic rhinitis Ordered: 11/27/2023 [facility] Comment on above: Ordered: 11/27/2023 Immunizations Immunization Date Immunization Notes Care Provider Fa lana 11-13-2017 influenza virus vacc ine, unspecified formulation Angie De MD Work Phone: [facility] Payers Date Payer Category Payer Private Health Insurance [employer] A ETNA POS [id number] 2022-Present [phone] [address] [place] [address] POS [id number] 2022 Private Health Insurance [id number] Social History Date Type Detail Facility Start: 03-23-2011 Tobacco smoking stat us NHIS Never smoked tobacco [facility] Work Phone: Start: 03-23-2011 Tobacco use and exposure Smokeless tobacco non-user [facility] Start: 04-16-2013 Alcoholic beverage intake Current non-drinker of alcohol (finding) [facility] Start: 07-23-2014 End: 11-27-2023 History of Social function [facility] Start: 07-23-2014 End: 11-27-2023 Tobacco use panel [facility] National Score (1-10 0), lower number is lower risk 58 [facility] Start: 1996 Sex assigned at Not on file [facility] Medical Equipment Procedure Code Equipment Code Equipment Original Text Equipment Identifier Dates Graft [facility] Tis Pat Tend Pshp - [id number] Start: 04-06-[address] Tis Pat Tend Pshp - [id number] Start: 04-17-2013 Comment on above: Description: BTB HEM I SHAPED BONE Screw Intfr 23mm 8mm Sut Bcmps - [id number] Start: 04-06-2011 Screw Intfr 23mm 8mm Kn Bcmps - [id number] Start: 04-17-2013 Comment on above: Description: biocomp osite interference screw Xsy-Jg-M-Kind Implant - [id number] Start: 04-06-2011 Comment on above: Description: SIOBHAN Beckham STAPLE-1 SM Stpl Bn Sm Reg Spik 23.22x7.94 - [id number] Start: 04-06-2011 Stpl Bn Med Spik Lp 20x8mm - [id number] Start: 04-17-2013 Comment on above: Description: spiked ligament staple Stpl Bn Sm Spik Lp 20x6mm Cocr - [id number] Start: 04-17-2013 Comment on above: Description: spiked ligament spike Telephone encounter Note 11-27-2023 Telephone Encounter - Brenden Colvin RN - 11/27/2023 3:35 PM EDT Note Date & Type Note Facility 11-27-2023 Telephone encount er Note Images from the original note were not included. Angie De MD [facility] Pool Please send copy of my progress note to Krys Wing DO in [facility] Note faxed to [facility] with confirmation [facility] Note 11-27-2023 Telephone Encounter - Brenden Colvin RN - 11/27/2023 3:35 PM EDT Note Date & Type Note Facility 11-27-2023 Miscellaneous Notes Formattin g of this note might be different from the original. Images from the original note were not included. Angie De MD [facility] Pool Please send copy of my progress note to Krys Wing DO in [facility] Note faxed to 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 All patients questions were answered to patient's satisfaction. Patient decided to proceed. Patient has been identified by name and date of : Yes kin test applied by : Eloise Christine LPN *Clinical significant reactions are regarded as a wheal diameter greater than or equal to 3 mm with a flare diameter greater or equal to 6mm Allergens Wheal/Flare (mm) Negative Control 50%Glycerin/50%Cocas 0/0 Cat Hair 10,000 BAU/ml 0/0 Dog Epithelial 1:100 0/0 Cockroach Mix 1:10 0/0 Mite Df 30,000 AU/ml 0/0 Mite Dp 30,000AU/ml 3/3 Alternaria Alternata 1:10 0/0 Aspergillus Fumigatus 1:10 0/0 Hormodendrum Cladosporium 1:10 0/0 Epicoccum Nigrum 1:10 0/0 Fusarium Solani 1:10 0/0 Helminthosporium 1:10 0/0 Penicillium Mix 1:10 0/0 Hero, White 1:20 0/0 Beech, [place] 1:20 0/0 Birch Mix 1:20 0/0 Maple Mix 1:20 0/0 [place] ,Eastern 1:20 0/0 Mugwort 1:20 0/0 [place], Shagbark 1:20 0/0 [place] Tree, Red 1:20 0/0 Lambert, Black 1:20 0/0 [place], [place]/Eastern 1:20 0/0 [place] Pollen, Black 1:20 0/0 [place], Black 1:20 0/0 [place] Grass 10,000 BAU/ml 0/0 [place], Blue/Franny 100,000 BAU/ml 0/0 Fescue, [place] 100,000 BAU/ml 0/0 Wolf Grass 1:20 0/0 Orchard Grass 100,000 BAU/ml 0/0 Perennial [place], 100,000 BAU/ml 0/0 Nacho 100,000 BAU/ml 0/0 Cocklebur 1:20 0/0 Cunard, sheep 1:20 0/0 Plantain, Lebanese 1:20 0/0 Lambs Quarters 1:20 0/0 Atkins Elder, Burweed 1:20 0/0 Pigweed, Rough 1:20 0/0 Ragweed, Mix 1:20 0/0 HISTAMINE (Histamine base 6mg/ml) 9/50 Egg 0/0 Feather 0/0 May apply Hydrocortisone Cream, 2.5% to local reactions following skin testing. [facility] Nurse Note 11-27-2023 Eloise Christine LPN - 11/27/2023 1:33 PM EDT Note Date & Type Note Facility 11-27-2023 Nurse Note INHALANT 40 PERCUTANEOUS & INTRADERMAL TESTING/ Mean Wheal & Flare Diameter (mm) Skin testing procedure explained to patient in detail. All patients questions were answered to patient's satisfaction. Patient decided to proceed. Patient has been identified by name and date of : Yes kin test applied by : Eloise Christine LPN *Clinical significant reactions are regarded as a wheal diameter greater than or equal to 3 mm with a flare diameter greater or equal to 6mm Allergens Wheal/Flare (mm) Negative Control 50%Glycerin/50%Cocas 0/0 Cat Hair 10,000 BAU/ml 0/0 Dog Epithelial 1:100 0/0 Cockroach Mix 1:10 0/0 Mite Df 30,000 AU/ml 0/0 Mite Dp 30,000AU/ml 3/3 Alternaria Alternata 1:10 0/0 Aspergillus Fumigatus 1:10 0/0 Hormodendrum Cladosporium 1:10 0/0 Epicoccum Nigrum 1:10 0/0 Fusarium Solani 1:10 0/0 Helminthosporium 1:10 0/0 Penicillium Mix 1:10 0/0 Hero, White 1:20 0/0 Beech, [place] 1:20 0/0 Birch Mix 1:20 0/0 Maple Mix 1:20 0/0 [place] ,Eastern 1:20 0/0 Mugwort 1:20 0/0 [place], Shagbark 1:20 0/0 [place] Tree, Red 1:20 0/0 Lambert, Black 1:20 0/0 [place], [place]/Eastern 1:20 0/0 [place] Pollen, Black 1:20 0/0 [place], Black 1:20 0/0 [place] Grass 10,000 BAU/ml 0/0 [place], Blue/Franny 100,000 BAU/ml 0/0 Fescue, [place] 100,000 BAU/ml 0/0 Wolf Grass 1:20 0/0 Orchard Grass 100,000 BAU/ml 0/0 Perennial [place], 100,000 BAU/ml 0/0 Nacho 100,000 BAU/ml 0/0 Cocklebur 1:20 0/0 Cunard, sheep 1:20 0/0 Plantain, Lebanese 1:20 0/0 Lambs Quarters 1:20 0/0 Atkins Elder, Burweed 1:20 0/0 Pigweed, Rough 1:20 0/0 Ragweed, Mix 1:20 0/0 HISTAMINE (Histamine base 6mg/ml) 9/50 Egg 0/0 Feather 0/0 May apply Hydrocortisone Cream, 2.5% to local reactions following skin testing. documented in this encounter [facility] History of Present illness Narrative 11-27-2023 Angie De MD - 11/27/2023 1:00 PM EDT Note Date & Type Note Facility 11-27-2023 History of Presen t illness Narrative Images from the original note were not included. Allergy and Immunology Patient Name: Isabel Acharya PRIMARY CARE PHYSICIAN: No primary care provider on file. REASON FOR CONSULT: rash REQUESTING PHYSICIAN: Dr. Wing ([facility]) [phone] My final recommendations will be communicated to the requesting health care provider by way of the shared medical record for internal providers or letter via the USPS for external providers. Isabel Acharya is a 28 year old female who presents today for evaluation of rash. Patient reports having a facial rash (also on her neck, chest and abdomen) for the past two months She randomly started with face breaking out She feels that her face is on fire and very itchy Lasts a couple of days and then it goes away She noticed that the rash was triggered by eating proteins and red dye, so she stopped eating high protein diet and things containing red dye. For a while, her rash was better but then she started to have breakouts again when she ate eggs, so she was worried that egg was a trigger She takes benadryl when the rash breaks out and that seems to help She has mild seasonal allergies, worse in October She gets stuffy and has watery itchy eyes No history of acne or rosacea The only new thing the past few months is high protein diet Taking Benadryl and Claritin Allergic/Infectious Personal History: Nasal polyps: The patient has never had nasal polyps. Asthma: The patient has no history of asthma. Sinusitis: The patient does not suffer from frequent sinopulmonary infections. 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 PAST SURGICAL HISTORY Procedure Laterality Date PAST SURGICAL HISTORY OF 2012 left ACL repair ALLERGIES: has No Known Allergies. FAMILY HISTORY: FAMILY HISTORY Problem Relation Age of Onset Heart Father REVIEW OF SYSTEMS: All systems were reviewed and were negative except as listed in the HPI and above. PHYSICAL EXAM: BP 124/79 Pulse 81 Temp 36.4 C (97.6 F) Wt 57.2 kg (126 lb) LMP 03/03/2011 SpO2 100% There is no height or weight on file to calculate BMI. General: The patient is pleasant, well groomed, in no acute distress, breathing comfortably and interactive with the exam. Head: Normocephalic, atraumatic Eyes: Conjunctiva not injected, no drainage. Lymph: No cervical or supraclavicular LAD. Musculoskeletal: Normal muscle tone and gait. Neurologic: Grossly non-focal Psych: Appropriate affect. Dermatologic: No rash, urticaria or excoriations. Percutaneous Allergy Testing: November 26, 2023 Skin testing was performed using standard technique and interpreted in the setting of valid positive and negative controls. SPT: all negative Please see nurse's note for more details: Allergens Wheal/Flare (mm) Negative Control 50%Glycerin/50%Cocas 0/0 Cat Hair 10,000 BAU/ml 0/0 Dog Epithelial 1:100 0/0 Cockroach Mix 1:10 0/0 Mite Df 30,000 AU/ml 0/0 Mite Dp 30,000AU/ml 3/3 Alternaria Alternata 1:10 0/0 Aspergillus Fumigatus 1:10 0/0 Hormodendrum Cladosporium 1:10 0/0 Epicoccum Nigrum 1:10 0/0 Fusarium Solani 1:10 0/0 Helminthosporium 1:10 0/0 Penicillium Mix 1:10 0/0 Hero, White 1:20 0/0 Beech, [place] 1:20 0/0 Birch Mix 1:20 0/0 Maple Mix 1:20 0/0 [place] ,Eastern 1:20 0/0 Mugwort 1:20 0/0 [place], Shagbark 1:20 0/0 [place] Tree, Red 1:20 0/0 Lambert, Black 1:20 0/0 [place], [place]/Eastern 1:20 0/0 [place] Pollen, Black 1:20 0/0 [place], Black 1:20 0/0 [place] Grass 10,000 BAU/ml 0/0 [place], /Franny 100,000 BAU/ml 0/0 Fescue, [place] 100,000 BAU/ml 0/0 Wolf Grass 1:20 0/0 Orchard Grass 100,000 BAU/ml 0/0 Perennial [place], 100,000 BAU/ml 0/0 Nacho 100,000 BAU/ml 0/0 Cocklebur 1:20 0/0 Cunard, sheep 1:20 0/0 Plantain, Lebanese 1:20 0/0 Lambs Quarters 1:20 0/0 Atkins Elder, Burweed 1:20 0/0 Pigweed, Rough 1:20 0/0 Ragweed, Mix 1:20 0/0 HISTAMINE (Histamine base 6mg/ml) Egg 0/0 Feather 0/0 Assessment/Plan: Rash and nonspecific skin eruption Patient told me that she has hives however when I looked at the photos, they did not appear like hives to me, and more of a non-specific erythematous papular rash on her abdomen. Also appeared to have acne and redness over her face I advised her to make an appointment with Dermatology She can continue antihistamines (Radha) since she felt that the benadryl was helping - CONSULT TO DERMATOLOGY; Future Adverse food reaction, initial encounter Negative SPT to egg Will order red dye IgE and reach out to patient with result I explained to patient that her rash is unlikely to be due to food allergies. She can avoid egg if she feels like it's making her rash worse, but she does not have an IgE mediated egg allergy - ALGN RED DYE IGE; Future - ALLERGEN SKIN TEST-FOOD Non-allergic rhinitis Negative allergy testing Nasal saline irrigation as needed - ALLERGEN SKIN TEST-INHALANT 40 - ALLERGEN SKIN TEST-OTHER INHAL Discussed medication dosage, usage, side effects, and goals of treatment in detail. Follow-up: No follow-ups on file. Patient advised to call or return sooner should current symptoms worsen or fail to improve or if new symptoms or problems arise. Angie De MD Allergy and Immunology [facility] I spent a total of 40 minutes on the date of the service which included preparing to see the patient, vysg-sy-egne patient care, completing clinical documentation, obtaining and/or reviewing separately obtained history, performing a medically appropriate examination, counseling and educating the patient/family/caregiver, ordering medications, tests, or procedures, independently interpreting results (not separately reported), and communicating results to the patient/family/caregiver. documented in this encounter [facility] Progress note 11-27-2023 Note Date & Type Note Facility 11-27-2023 Note HNO ID: [id number] Author: ANGIE DE MD Service: ? Author Type: Physician Type: Progress Notes Filed: 11/27/2023 14:51 Note Text: Allergy and Immunology Patient Name: Isabel Acharya PRIMARY CARE PHYSICIAN: No primary care provider on file. REASON FOR CONSULT: rash REQUESTING PHYSICIAN: Dr. Wing ([facility]) [phone] My final recommendations will be communicated to the requesting health care provider by way of the shared medical record for internal providers or letter via the USPS for external providers. Isabel Acharya is a 28 year old female who presents today for evaluation of rash. Patient reports having a facial rash (also on her neck, chest and abdomen) for the past two months She randomly started with face breaking out She feels that her face is on fire and very itchy Lasts a couple of days and then it goes away She noticed that the rash was triggered by eating proteins and red dye, so she stopped eating high protein diet and things containing red dye. For a while, her rash was better but then she started to have breakouts again when she ate eggs, so she was worried that egg was a trigger She takes benadryl when the rash breaks out and that seems to help She has mild seasonal allergies, worse in October She gets stuffy and has watery itchy eyes No history of acne or rosacea The only new thing the past few months is high protein diet Taking Benadryl and Claritin Allergic/Infectious Personal History: Nasal polyps: The patient has never had nasal polyps. Asthma: The patient has no history of asthma. Sinusitis: The patient does not suffer from frequent sinopulmonary infections. 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 PAST SURGICAL HISTORY Procedure Laterality Date PAST SURGICAL HISTORY OF 2012 left ACL repair ALLERGIES: has No Known Allergies. FAMILY HISTORY: FAMILY HISTORY Problem Relation Age of Onset Heart Father REVIEW OF SYSTEMS: All systems were reviewed and were negative except as listed in the HPI and above. PHYSICAL EXAM: BP 124/79 Pulse 81 Temp 36.4 ?C (97.6 ?F) Wt 57.2 kg (126 lb) LMP 03/03/2011 SpO2 100% There is no height or weight on file to calculate BMI. General: The patient is pleasant, well groomed, in no acute distress, breathing comfortably and interactive with the exam. Head: Normocephalic, atraumatic Eyes: Conjunctiva not injected, no drainage. Lymph: No cervical or supraclavicular LAD. Musculoskeletal: Normal muscle tone and gait. Neurologic: Grossly non-focal Psych: Appropriate affect. Dermatologic: No rash, urticaria or excoriations. Percutaneous Allergy Testing: November 26, 2023 Skin testing was performed using standard technique and interpreted in the setting of valid positive and negative controls. SPT: all negative Please see nurse's note for more details: Allergens Wheal/Flare (mm) Negative Control 50%Glycerin/50%Cocas 0/0 Cat Hair 10,000 BAU/ml 0/0 Dog Epithelial 1:100 0/0 Cockroach Mix 1:10 0/0 Mite Df 30,000 AU/ml 0/0 Mite Dp 30,000AU/ml 3/3 Alternaria Alternata 1:10 0/0 Aspergillus Fumigatus 1:10 0/0 Hormodendrum Cladosporium 1:10 0/0 Epicoccum Nigrum 1:10 0/0 Fusarium Solani 1:10 0/0 Helminthosporium 1:10 0/0 Penicillium Mix 1:10 0/0 Hero, White 1:20 0/0 Beech, [place] 1:20 0/0 Birch Mix 1:20 0/0 Maple Mix 1:20 0/0 [place] ,Eastern 1:20 0/0 Mugwort 1:20 0/0 [place], [place]ark 1:20 0/0 [place] Tree, Red 1:20 0/0 [place], Black 1:20 0/0 [place], [place]/Eastern 1:20 0/0 [place] Pollen, Black 1:20 0/0 [place], Black 1:20 0/0 [place] Grass 10,000 BAU/ml 0/0 [place], Blue/Franny 100,000 BAU/ml 0/0 Fescue, [place] 100,000 BAU/ml 0/0 Wolf Grass 1:20 0/0 Orchard Grass 100,000 BAU/ml 0/0 Perennial [place], 100,000 BAU/ml 0/0 Nacho 100,000 BAU/ml 0/0 Cocklebur 1:20 0/0 Cunard, sheep 1:20 0/0 Plantain, Lebanese 1:20 0/0 Lambs Quarters 1:20 0/0 [place] Elder, Burweed 1:20 0/0 Pigweed, Rough 1:20 0/0 Ragweed, Mix 1:20 0/0 HISTAMINE (Histamine base 6mg/ml) Egg 0/0 Feather 0/0 Assessment/Plan: Rash and nonspecific skin eruption Patient told me that she has hives however when I looked at the photos, they did not appear like hives to me, and more of a non-specific erythematous papular rash on her abdomen. Also appeared to have acne and redness over her face I advised her to make (more content not included)... [facility] Evaluation note Note Date & Type Note Facility Evaluation note Diagnosis Rash and nonspecific skin eruption- Primary Rash and other nonspecific skin eruption Adverse food reaction, initial encounter Non-allergic rhinitis Chronic rhinitis documented in this encounter [facility] Summary Purpose Family History No Family History Records FoundNo Family History Records FoundNo Family History Records Found Advance Directives No Advanced Directives Records FoundNo Advanced Directives Records FoundNo Advanced Directives Records Found Reason for Referral Specialty Diagnoses / Procedures Referred By Azeem carrillo Referred To Contact Dermatology Diagnoses Rash and nonspecific skin eruption Procedures CONSULT TO DERMATOLOGY Angie De MD [id number] [place] [address] Referral ID Status Reason Start Date Expiration Date Visits Requested Visits Authorized [id number] Ref Not Required PCP Requested Referral 11/27/2023 11/26/2024 1 1 Additional Source Comments INFORMATION SOURCE (unrecogn ized section and content) DATE CREATED AUTHOR 04/17/2021 [facility] [place] DATE CREATED AUTHOR AUTHOR'S ORGANIZ ATION 06/01/2021 [facility] DATE CREATED AUTHOR AUTHOR'S ORGANIZ ATION 11/29/2023 [facility] Source Comments (unrecognize d section and content) In the event this informatio n is protected by the Federal Confidentiality of Alcohol and Drug Abuse Patient Records regulations: The Federal rules restrict any use of the information to criminally investigate or prosecute any alcohol or drug abuse patient.[facility] the event this information is protected by the Federal Confidentiality of Alcohol and Drug Abuse Patient Records regulations: The Federal rules restrict any use of the information to criminally investigate or prosecute any alcohol or drug abuse patient.[facility] Reason for Visit (unrecogniz ed section and content) Reason Comments Consult FOR RECORDS PERTAINING TO PATIENTS WHO ARE OR HAVE BEEN ENROLLED IN A CHEMICAL DEPENDENCY/SUBSTANCEABUSE PROGRAM, SOME INFORMATION MAY BE OMITTED. This clinical summary was aggregated from multiple sources. Caution should be exercised in using it in the provision of clinical care. This summary normalizes information from multiple sources, and as a consequence, information in this document may materially change the coding, format and clinical context of patient data. In addition, data may be omitted in some cases. CLINICAL DECISIONS SHOULD BE BASED ON THE PRIMARY CLINICAL RECORDS. [facility] [employer] [facility]. provides no warranty or guarantee of the accuracy or completeness of information in this document.
[2025-02-02 00:07] LABS: Chlamydia By Nucleic Acid AMP Negative (Negative); Gonococcus By Nucleic Acid AMP Negative (Negative)
== END | disposition home or self-care (01) ==
PROVIDERS: Referring Provider Student in an Organized Health Care Education/Training Program; Visit Provider Student in an Organized Health Care Education/Training Program
DX: O09.90 Supervision of high risk pregnancy, unspecified, unspecified trimester (principal); Z3A.00 Weeks of gestation of pregnancy not specified; Z12.4 Encounter for screening for malignant neoplasm of cervix
CPT/HCPCS: 87086; 87088; 87491; 87591; 88175; G0145

== ENCOUNTER → 2025-02-18 | Outpatient (CLI) | payer OTHER, SELFPAY ==
[2025-02-18 16:36] LABS: Hematocrit 37.9 % (37-47); Hemoglobin 12.7 g/dL (12.0-15.0); Immature Granulocytes Count 0.030 X10^3/uL (0.0-0.0); Mean Corp Hgb Conc 33.5 g/dL (32-36); Mean Corpuscular Volume 92.2 fL (81-99); Mean Platelet Vol. 10.9 fl (6.2-12.0); NRBC Flagged by Analyzer 0 % (0-5); Platelet Count 218 K/mm3 (150-450); RBC Distribution Width CV 12.4 % (11.6-14.6); RBC Distribution Width SD 42.0 fl (35.1-43.9); Red Blood Count 4.11 M/mm3 (4.2-5.4); White Blood Count 8.6 K/mm3 (4.4-11.0)
[2025-02-18 17:36] LABS: HIV Nonreactive (Nonreactive); Hepatitis B Surface Antigen Nonreactive (Nonreactive); Hepatitis C Antibody Nonreactive (Nonreactive); Syphilis Antibodies Nonreactive (Nonreactive)
== END | disposition home or self-care (01) ==
PROVIDERS: Visit Provider Student in an Organized Health Care Education/Training Program
DX: O09.90 Supervision of high risk pregnancy, unspecified, unspecified trimester (principal); Z3A.00 Weeks of gestation of pregnancy not specified
CPT/HCPCS: 36415; 85025; 86703; 86762; 86780; 86803; 86850; 86900; 86901; 87340